=== PATIENT | male | born 1990 | race Caucasian/White ===

== ENCOUNTER 2019-11-16 16:58 | Emergency (ER) | payer SELFPAY ==
--- OUTSIDE RECORDS SUMMARY | 2019-11-16 17:00 | XMS REPORT | Continuity of Care Document ---
:1990 Author Organization [facility] t Address [address] [place] [address] Care Team Providers Name Role Phone Unavailable Unavailable Unavailable Problems This patient has no known problems. Allergies, Adverse Reactions, Alerts This patient has no known allergies or adverse reactions. Medications This patient has no known medications. Procedures This patient has no known procedures. Results Test Description Test Time Test Comments Results Result Comments Source Thyroxine Free T4 2018-12-28 08:22:53 Test Item Value Reference Range Interpretation Comme nts T4 Free (test code = T4 Free) 1.060 ng/dL 0.930-1.700 RPR [id number] 19:40:08 Test Item Value Reference Range Interpretation Comments RPR Qual (test code = RPR Qual) Non-Reactive Non-Reactive Reactive Control (test code = Reactive Reactive Control) Weak Reactive Control (test Weak Reactive code = Weak Reactive Control) Non-Reactive Control (test code Non-Reactive = Non-Reactive Control) Lot # (test code = Lot #) [id number] Expiration Dt (test code = 10.31.20 N Expiration Dt) Hemoglobin [id number] 12:10:15 Test Item Value Reference Range Interpretation Comments Hemoglobin A1c (test code 5.2 % 4.8-5.9 No n Diabetic = Hemoglobin A1c) 4.8-5.9%Di abetic <7.0% Thyroid Stimulating [id number] 09:22:05 Test Item Value Reference Range Interpretation Comments TSH (test code = TSH) 6.780 mIU/mL 0.270-4.200 H Lipid [id number] 09:17:31 Test Item Value Reference Range Interpretation Comments Cholesterol Total 112 mg/dL 0-200 RISK OF HE ART (test code = DISEASEPublishe d by Cholesterol Total) [employer] Patti lyte Optimal Borderl ine Increased RiskC HOL <200 200-239 >2 40TRIG <150 150-199 >2 00HDL Male >60 <40H DL Female >60 <5 0LDL <100 130-159 >1 60LDL Near optimal is 100-129 Triglycerides (test 124 mg/dL 9-200 code = Triglycerides) HDL (test code = HDL) 42 mg/dL 40-60 LDL (test code = LDL) 45 mg/dL 0-130 The eq uation being used in this calcula tion is LDL = (Chol - H DL) - (Trig / 5) VLDL (test code = 25 mg/dL 5-40 The equati on being used VLDL) in this calcula tion is VLDL = Trig / 5 Chol/HDL (test code = 2.7 ratio 0.0-5.0 Chol/HDL) LDL/HDL Ratio (test 1 N The equa tion being used code = LDL/HDL Ratio) in thi s calculation is LDL/HDL Ratio=L DL Calc/HDL Chol Urine Drug [id number] 01:18:36 Test Item Value Reference Range Interpretation Comments Amphetamine Screen Ur Negative Negative (test code = Amphetamine Screen Ur) Barbiturate Screen Ur Negative Negative (test code = Barbiturate Screen Ur) Benzodiazepines Ur (test Negative Negative code = Benzodiazepines Ur) Cocaine Screen Ur (test Negative Negative code = Cocaine Screen Ur) U Methadone Scr (test Negative Negative code = U Methadone Scr) Opiate Screen Ur (test Negative Negative code = Opiate Screen Ur) U PCP Scrn (test code = Negative Negative U PCP Scrn) Cannabinoid Screen Ur POSITIVE Negative A (test code = Cannabinoid Screen Ur) U TCA (test code = U Negative Negative The res ults of all TCA) drug screen kyra ts are only preliminar y. Clinical consideration a nd professional ju dgment should be appli ed to any drug of abu se test result, particularly wh en preliminary pos itive results are obt ained. Please order a separate confir matory test if desired . Alcohol [id number] 00:40:25 Test Item Value Reference Range Interpretation Comments Ethanol Level (test <0.00 g/dL 0.00-0.01 Intoxica carrie 0.080 g/dL code = Ethanol or more Level) Ethanol Inst (test <0 N code = Ethanol Inst) Comprehensive Metabolic [id number] 20:42:46 Test Item Value Reference Range Interpretation Comments Sodium Level (test code = Sodium 142.0 mmol/L 135.0-145.0 Level) Potassium Level (test code = 5.0 mmol/L 3.5-5.1 Potassium Level) Chloride Level (test code = 103 mmol/L 98-105 Chloride Level) CO2 (test code = CO2) 29 mmol/L 22-29 Anion Gap (test code = Anion 10 mmol/L 7-16 Gap) BUN (test code = BUN) 11.20 mg/dL 6.00-20.00 Creatinine Level (test code = 0.80 mg/dL 0.70-1.20 Creatinine Level) BUN/Creat Ratio (test code = 14 N BUN/Creat Ratio) Glucose Level (test code = 91 mg/dL 70-115 Glucose Level) Calcium Level (test code = 9.4 mg/dL 8.3-10.5 Calcium Level) Alk Phos (test code = Alk Phos) 72 U/L 40-129 Bilirubin Total (test code = <0.1 mg/dL 0.1-0.9 Bilirubin Total) Albumin Level (test code = 4.5 g/dL 3.5-5.2 Albumin Level) Protein Total (test code = 6.5 g/dL 6.4-8.3 Protein Total) ALT (test code = ALT) 15 U/L 1-41 AST (test code = AST) 15 U/L 1-40 Globulin (test code = Globulin) 2.0 g/dL 2.9-3.1 L A/G Ratio (test code = A/G 2.2 ratio N Ratio) Comprehensive Metabolic [id number] 20:42:46 Test Item Value Reference Range Interpretation Comments Sodium Level (test 142.0 mmol/L 135.0-145.0 code = Sodium Level) Potassium Level 5.0 mmol/L 3.5-5.1 (test code = Potassium Level) Chloride Level (test 103 mmol/L 98-105 code = Chloride Level) CO2 (test code = 29 mmol/L 22-29 CO2) Anion Gap (test code 10 mmol/L 7-16 = Anion Gap) BUN (test code = 11.20 mg/dL 6.00-20.00 BUN) Creatinine Level 0.80 mg/dL 0.70-1.20 (test code = Creatinine Level) BUN/Creat Ratio 14 N (test code = BUN/Creat Ratio) Glucose Level (test 91 mg/dL 70-115 code = Glucose Level) Calcium Level (test 9.4 mg/dL 8.3-10.5 code = Calcium Level) Alk Phos (test code 72 U/L 40-129 = Alk Phos) Bilirubin Total <0.1 mg/dL 0.1-0.9 (test code = Bilirubin Total) Albumin Level (test 4.5 g/dL 3.5-5.2 code = Albumin Level) Protein Total (test 6.5 g/dL 6.4-8.3 code = Protein Total) ALT (test code = 15 U/L 1-41 ALT) AST (test code = 15 U/L 1-40 AST) Globulin (test code 2.0 g/dL 2.9-3.1 L = Globulin) A/G Ratio (test code 2.2 ratio N = A/G Ratio) eGFR AA (test code = >60 N eGFR (e stimated eGFR AA) mL/min/1.73 m2 Glomerular Filtration Rate ) is an estimated va lue, calculated from the patient's serum creatinine usin g the MDRD equation. It is NOT the patient 's actual GFR. The eGFR provides a more clinically usef ul measure of kidn ey disease than se rum creatinine alone.This calculation belén es sex and race in to account, if the information is provided. If th e race is not provided, and t he patient is -Marichuy n, multiply by 1.2 12. If sex is not provided, and t he patient is fema le, multiply by 0.7 42. Results for pat ients <18 years of ag e have not been validated by th e MDRD study and should be interpreted wit h caution. eGFR R esult Interpretation: eGFR > or = 60 is in the Normal RangeeGF R < 60 may mean kid radha diseaseeGFR < 1 5 may mean kidney failure Rang es recommended by the National Kidney Foundation, http://nkdep.ni h.gov Comprehensive Metabolic [id number] 20:42:46 Test Item Value Reference Range Interpretation Comments Sodium Level (test 142.0 mmol/L 135.0-145.0 code = Sodium Level) Potassium Level 5.0 mmol/L 3.5-5.1 (test code = Potassium Level) Chloride Level (test 103 mmol/L 98-105 code = Chloride Level) CO2 (test code = 29 mmol/L 22-29 CO2) Anion Gap (test code 10 mmol/L 7-16 = Anion Gap) BUN (test code = 11.20 mg/dL 6.00-20.00 BUN) Creatinine Level 0.80 mg/dL 0.70-1.20 (test code = Creatinine Level) BUN/Creat Ratio 14 N (test code = BUN/Creat Ratio) Glucose Level (test 91 mg/dL 70-115 code = Glucose Level) Calcium Level (test 9.4 mg/dL 8.3-10.5 code = Calcium Level) Alk Phos (test code 72 U/L 40-129 = Alk Phos) Bilirubin Total <0.1 mg/dL 0.1-0.9 (test code = Bilirubin Total) Albumin Level (test 4.5 g/dL 3.5-5.2 code = Albumin Level) Protein Total (test 6.5 g/dL 6.4-8.3 code = Protein Total) ALT (test code = 15 U/L 1-41 ALT) AST (test code = 15 U/L 1-40 AST) Globulin (test code 2.0 g/dL 2.9-3.1 L = Globulin) A/G Ratio (test code 2.2 ratio N = A/G Ratio) eGFR AA (test code = >60 N eGFR (e stimated eGFR AA) mL/min/1.73 m2 Glomerular Filtration Rate ) is an estimated va lue, calculated from the patient's serum creatinine usin g the MDRD equation. It is NOT the patient 's actual GFR. The eGFR provides a more clinically usef ul measure of kidn ey disease than se rum creatinine alone.This calculation belén es sex and race in to account, if the information is provided. If th e race is not provided, and t he patient is -Marichuy n, multiply by 1.2 12. If sex is not provided, and t he patient is fema le, multiply by 0.7 42. Results for pat ients <18 years of ag e have not been validated by th e MDRD study and should be interpreted wit h caution. eGFR R esult Interpretation: eGFR > or = 60 is in the Normal RangeeGF R < 60 may mean kid radha diseaseeGFR < 1 5 may mean kidney failure Rang es recommended by the National Kidney Foundation, http://nkdep.ni h.gov eGFR Non-AA (test >60.00 N eGFR (john mated code = eGFR Non-AA) mL/min/1.73 m2 Glomer ular Filtration Rate ) is an estimated va lue, calculated from the patient's serum creatinine usin g the MDRD equation. It is NOT the patient 's actual GFR. The eGFR provides a more clinically usef ul measure of kidn ey disease than se rum creatinine alone.This calculation belén es sex and race in to account, if the information is provided. If th e race is not provided, and t he patient is -Marichuy n, multiply by 1.2 12. If sex is not provided, and t he patient is fema le, multiply by 0.7 42. Results for pat ients <18 years of ag e have not been validated by th e MDRD study and should be interpreted wit h caution. eGFR R esult Interpretation: eGFR > or = 60 is in the Normal RangeeGF R < 60 may mean kid radha diseaseeGFR < 1 5 may mean kidney failure Rang es recommended by the National Kidney Foundation, http://nkdep.ni h.gov Urinalysis with Culture, if [id number] 20:26:39 Test Item Value Reference Range Interpretation Comments UA Color (test code = YELLO Yellow UA Color) UA Appear (test code = CLEAR Clear UA Appear) UA pH (test code = UA 7 N pH) UA Spec Grav (test 1.014 1.001-1.035 code = UA Spec Grav) UA Glucose (test code NEG Negative = UA Glucose) UA Bili (test code = NEG Negative UA Bili) UA Ketones (test code NEG Negative = UA Ketones) UA Blood (test code = NEG Negative UA Blood) UA Protein (test code NEG Negative = UA Protein) UA Urobilinogen (test 0.2 mg/dL N code = UA Urobilinogen) UA Nitrite (test code NEG Negative = UA Nitrite) UA Leuk Est (test code NEG Negative = UA Leuk Est) UA Micro Ind? (test Not Indicated Not Indicated Result created by code = UA Micro Ind?) rule [id number]_SJM_UA_MICRO _IN D Complete Blood Count with [id number] 20:13:10 Test Item Value Reference Range Interpretation Comments WBC (test code = WBC) 9.4 x10 4.4-10.5 RBC (test code = RBC) 4.66 x10 4.10-5.70 Hgb (test code = Hgb) 15.2 g/dL 13.4-17.4 Hct (test code = Hct) 43.9 % 38.7-52.0 MCV (test code = MCV) 94.20 fL 80.00-100.00 MCHC (test code = 34.60 g/dL 32.00-37.50 MCHC) RDW CV (test code = 12.3 % 11.5-14.5 RDW CV) MCH (test code = MCH) 32.6 pg 27.0-32.5 H Platelets (test code = 283.0 x10 140.0-440.0 Platelets) MPV (test code = MPV) 10.9 fL N Slide Review (test Auto Auto Result cr eated by code = Slide Review) GL_SJM_ SLIDE_REV_AUTO nRBC (test code = 0 N nRBC) NRBC Abs (test code = 0.00 x10 N NRBC Abs) IPF (test code = IPF) 0 % N Automated [id number] 20:13:10 Test Item Value Reference Range Interpretation Comments Neutro Auto (test code = Neutro 62.8 % 36.0-70.0 Auto) Lymph Auto (test code = Lymph Auto) 22.9 % 12.0-44.0 Eureka Auto (test code = Eureka Auto) 11.0 % 0.0-11.0 Eos, Auto (test code = Eos, Auto) 2.3 % 0.0-7.0 Basophil Auto (test code = Basophil 0.6 % 0.0-2.0 Auto) Neutro Absolute (test code = Neutro 5.9 x10 1.6-7.4 Absolute) Lymph Absolute (test code = Lymph 2.15 x10 .50-4.60 Absolute) Eureka Absolute (test code = Eureka 1.03 x10 .00-1.20 Absolute) Eos Absolute (test code = Eos 0.22 x10 0.00-0.74 Absolute) Baso Absolute (test code = Baso 0.06 x10 0.00-0.21 Absolute) IG [id number] 20:13:10 Test Item Value Reference Range Interpretation Comments IG (test code = IG) 0.4 % 0.0-5.0 IG Abs (test code = IG Abs) 0 x10 N
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
[2019-11-16] MEDS ORDERED: TETANUS & DIPHTHERIA TOX,ADULT 0.5 ML VIAL ONE (17:57)
[2019-11-16 20:36] VITALS: TEMP 98.9
[2019-11-16 20:37] VITALS: BP 114/65; O2SAT 97
== END 2019-11-16 18:08 | disposition home or self-care (01) ==
LOC: ER 16:58
DX: S09.90XA Unspecified injury of head, initial encounter (principal); S50.812A Abrasion of left forearm, initial encounter; S50.811A Abrasion of right forearm, initial encounter; Y04.2XXA Assault by strike against or bumped into by another person, initial encounter; Y93.9 Activity, unspecified; Y92.9 Unspecified place or not applicable; Z23 Encounter for immunization
CPT/HCPCS: 90471; 90714; 99284; G0390

== ENCOUNTER 2020-01-19 00:54 | Emergency (ER) | payer SELFPAY ==
--- OUTSIDE RECORDS SUMMARY | 2020-01-19 00:56 | XMS REPORT | Continuity of Care Document ---
:1990 Author Organization [facility] t Address [address] [place] [address] Care Team Providers Name Role Phone Unavailable [...] = T4 Free) 1.060 ng/dL 0.930-1.700 RPR [id number] 19:40:08 Test Item Value Reference Range Interpretation Comments RPR Qual (test code = RPR Qual) Non-Reactive Non-Reactive Reactive Control (test code = Reactive Reactive Control) Weak Reactive Control (test Weak Reactive code = Weak Reactive Control) Non-Reactive Control (test code Non-Reactive = Non-Reactive Control) Lot # (test code = Lot #) [id number] Expiration Dt (test code = 10.31.20 N Expiration Dt) Hemoglobin [id number] 12:10:15 Test Item Value Reference Range Interpretation Comments Hemoglobin A1c (test code 5.2 % 4.8-5.9 No n Diabetic = Hemoglobin A1c) 4.8-5.9%Di abetic <7.0% Thyroid Stimulating [id number] 09:22:05 Test Item Value Reference Range Interpretation Comments TSH (test code = TSH) 6.780 mIU/mL 0.270-4.200 H Lipid [id number] 09:17:31 Test Item Value Reference Range Interpretation Comments Cholesterol Total 112 mg/dL 0-200 RISK OF HE ART (test code = DISEASEPublishe d by Cholesterol Total) [employer] Patti lyte Optimal Borderl ine [...] LDL/HDL Ratio=L DL Calc/HDL Chol Urine Drug [id number] 01:18:36 Test Item Value Reference Range Interpretation [...] confir matory test if desired . Alcohol [id number] 00:40:25 Test Item Value Reference Range Interpretation Comments Ethanol Level (test <0.00 g/dL 0.00-0.01 Intoxica carrie 0.080 g/dL code = Ethanol or more Level) Ethanol Inst (test <0 N code = Ethanol Inst) Comprehensive Metabolic [id number] 20:42:46 Test Item Value Reference Range Interpretation [...] A/G 2.2 ratio N Ratio) Comprehensive Metabolic [id number] 20:42:46 Test Item Value Reference Range Interpretation [...] National Kidney Foundation, http://nkdep.ni h.gov Comprehensive Metabolic [id number] 20:42:46 Test Item Value Reference Range Interpretation [...] Foundation, http://nkdep.ni h.gov Urinalysis with Culture, if [id number] 20:26:39 Test Item Value Reference Range Interpretation [...] [id number] _IN D Complete Blood Count with [id number] 20:13:10 Test Item Value Reference Range Interpretation [...] code = IPF) 0 % N Automated [id number] 20:13:10 Test Item Value Reference Range Interpretation Comments Neutro Auto (test code = Neutro 62.8 % 36.0-70.0 Auto) Lymph Auto (test code = Lymph Auto) 22.9 % 12.0-44.0 George Auto (test code = George Auto) 11.0 % 0.0-11.0 Eos, Auto (test code = Eos, Auto) 2.3 % 0.0-7.0 Basophil Auto (test code = Basophil 0.6 % 0.0-2.0 Auto) Neutro Absolute (test code = Neutro 5.9 x10 1.6-7.4 Absolute) Lymph Absolute (test code = Lymph 2.15 x10 .50-4.60 Absolute) George Absolute (test code = George 1.03 x10 .00-1.20 Absolute) Eos Absolute (test code = Eos 0.22 x10 0.00-0.74 Absolute) Baso Absolute (test code = Baso 0.06 x10 0.00-0.21 Absolute) IG [id number] 20:13:10 Test Item Value Reference Range Interpretation Comments IG (test code = IG) 0.4 % 0.0-5.0 IG Abs (test code = IG Abs) 0 x10 N
[2020-01-19 01:28] LABS: Absolute Lymphocytes (CBC) 2.1 K/uL (0.7-4.9); Basophils % 0.7 % (0-1.3); Hematocrit 40.7 % (39.6-49.0); Lymphocytes % 24.5 % (15.3-44.8); MPV 10.3 fL (7.6-11.3); RBC Red Blood Cell Count 4.31 M/uL (4.33-5.43)
[2020-01-19 01:29] LABS: Protime INR 0.99
[2020-01-19 01:51] LABS: ALT/SGPT 18 U/L (12-78); AST/SGOT 13 U/L (15-37); Albumin 3.7 g/dL (3.4-5.0); Alkaline Phosphatase 82 U/L (45-117); BUN Blood Urea Nitrogen 12 mg/dL (7-18); Bicarbonate 29 mmol/L (21-32); Bilirubin Direct 0.1 mg/dL (0-0.2); Bilirubin Total 0.4 mg/dL (0.2-1.0); Glucose Level 119 mg/dL (74-106); Potassium 4.2 mmol/L (3.5-5.1); Protein, Total 6.7 g/dL (6.4-8.2); Sodium Level 143 mmol/L (136-145)
[2020-01-19] MEDS ORDERED: NA CHLORIDE 0.9% 1,000 ML ONE (02:50)
[2020-01-19 04:20] LABS: Barbiturates NEGATIVE (NEGATIVE); Benzodiazepines NEGATIVE (NEGATIVE); Cocaine NEGATIVE (NEGATIVE); METHAMPHETAM POSITIVE (NEGATIVE); Methadone NEGATIVE (NEGATIVE); Opiates NEGATIVE (NEGATIVE); Phencyclidine NEGATIVE (NEGATIVE); THC Cannibis POSITIVE (NEGATIVE)
--- NOTE | 2020-01-19 05:00 | ER ---
Nurse's Notes [facility] Name: Darinel Jaeger III Age: 29 yrs Sex: Male : 1990 Arrival Date: 01/19/2020 Time: 00:56 Bed 7 Private MD: Diagnosis: Dyspnea, unspecified;Methamphetamine Abuse;Marijuana Use Presentation: 01/18 00:56 Chief complaint: EMS states: toned in for . en route patient is inconsistent with rv his story. when asked, patient denies chest pain and at the moment. vital signs stable and normal. Coronavirus screen: Client denies travel out of the [place] in the last 14 days. Ebola Screen: No symptoms or risks identified at this time. Initial Sepsis Screen: Does the patient meet any 2 criteria? No. Patient's initial sepsis screen is negative. Does the patient have a suspected source of infection? No. Patient's initial sepsis screen is negative. Risk Assessment: Do you want to hurt yourself or someone else? Patient reports no desire to harm self or others. Onset of symptoms is unknown. 00:56 Method Of Arrival: EMS: [facility] rv 00:56 Acuity: KAVON 3 rv Triage Assessment: 01:01 General: Appears comfortable, unkempt, Behavior is. Pain: Denies pain. EENT: No rv deficits noted. Neuro: Level of Consciousness is awake, alert, obeys commands, Oriented to person, place, time, situation. Cardiovascular: Patient's skin is warm and dry. Respiratory: Airway is patent Respiratory effort is even, unlabored, Respiratory pattern is regular, Breath sounds are clear bilaterally. Derm: Skin is intact. Historical: - Allergies: 01: No Known Allergies; rv - Home Meds: 01: None [Active]; rv - PMHx: 01: Methamphetamine abuse - snort; rv - PSHx: 01:01 None; rv - Immunization history:: Adult Immunizations unknown. - Social history:: Smoking status: Patient reports the use of cigarette tobacco products, smokes one pack cigarettes per day. Screenin:03 Abuse screen: Denies threats or abuse. Denies injuries from another. Nutritional rv screening: No deficits noted. Tuberculosis screening: No symptoms or risk factors identified. Fall Risk None identified. Assessment: :29 Reassessment: PATIENT DENIES THREAT TO SELF OR OTHERS. rv 02:08 Reassessment: HELPED PATIENT DO HYGIENE IN THE RESTROOM. PROVIDED CLEAN GOWN AND rv HYGIENE KIT. PATIENT IS REFRESHED AND SATISFIED AFTER. PROVIDED FOOD AND DRINK AT BEDSIDE. 03:00 Reassessment: Patient appears in no apparent distress at this time. Patient is alert, rr5 oriented x 3, equal unlabored respirations, skin warm/dry/pink. awaiting for results. 03:58 Reassessment: Patient appears in no apparent distress at this time. Patient is alert, rr5 oriented x 3, equal unlabored respirations, skin warm/dry/pink. urine sent for UDS. Vital Signs: 00:56 BP 107 / 69; Pulse 66; Resp 16; Temp 98; Pulse Ox 100% ; Weight 77.11 kg; Height 5 ft. rv 10 in. (177.80 cm); Pain 0/10; 02:10 BP 101 / 68; Pulse 63; Resp 17; Pulse Ox 100% on R/A; rv 03:58 BP 105 / 62; Pulse 65; Resp 19; Pulse Ox 99% ; rr5 05:15 BP 110 / 66; Pulse 66; Resp 16; Temp 98; Pulse Ox 99% on R/A; rv 00:56 Body Mass Index 24.39 (77.11 kg, 177.80 cm) rv ED Course: 00:56 Patient arrived in ED. rv 00:57 Romie Perkins MD is Attending Physician. [facility] 01:00 Triage completed. rv 01:02 Arm band placed on right wrist. Patient placed in the treatment room, on a stretcher, rv Patient notified of wait time. 01:03 Patient has correct armband on for positive identification. monitor and storage bin tender on. Pulse rv ox on. NIBP on. 01:05 Inserted saline lock: 20 gauge in left forearm, using aseptic technique. Blood rr5 collected. 01:07 Artur Kennedy RN is Primary Nurse. rv 01:35 Chest Single View XRAY In Process Unspecified. EDMS 01:58 CT Head Brain wo Cont In Process Unspecified. EDMS 03:56 Urine collected: clean catch specimen, clear. rr5 04:35 covid. rr5 05:15 No provider procedures requiring assistance completed. IV discontinued, intact, rv bleeding controlled, No redness/swelling at site. Pressure dressing applied. Administered Medications: No medications were administered Outcome: 04:59 Discharge ordered by MD. isaac 05:15 Discharged to home ambulatory. rv 05:15 Condition: good 05:15 Discharge instructions given to patient, Instructed on discharge instructions, follow up and referral plans. Demonstrated understanding of instructions, follow-up care. 05:16 Patient left the ED. rv Signatures: Dispatcher [employer] EDArtur Elkins RN RN rv Roque, Raymond, RN RN rr5 Romie Perkins MD MD 7
--- NOTE | 2020-01-19 05:00 | EDPHYS ---
Physician Documentation [facility] Name: Darinel Jaeger III Age: 29 yrs Sex: Male : 1990 Arrival Date: 01/19/2020 Time: 00:56 Bed 7 Private MD: ED Physician Romie Perkins HPI: 01/18 01:36 This 29 yrs old Male presents to ER via EMS with complaints of Difficulty mh7 with breathing. 01:37 The patient has shortness of breath during emotionally upset. Onset: The mh7 symptoms/episode began/occurred 2 week(s) ago. Duration: The symptoms are intermittent, with no pattern. The patient's shortness of breath is aggravated by coughing, is alleviated by nothing. Associated signs and symptoms: Pertinent positives: non-productive cough, Pertinent negatives: chest pain, productive cough, diaphoresis, dizziness, fever, hemoptysis, loss of consciousness, nausea, numbness in extremities, visual changes, vomiting. Severity of symptoms: At their worst the symptoms were moderate 5 day(s) ago, in the emergency department the symptoms have improved moderately. Patient reports cough with difficulty with breathing intermittently for two weeks. Also states that he has been hearing voices that don't tell him anything in particular. Denies suicidal or homicidal ideation or visual hallucinations. Denies any fever, chest pain, abdominal pain, nausea, vomiting, recent travel or sick contacts.. Historical: - Allergies: 01:01 No Known Allergies; rv - Home Meds: 01:01 None [Active]; rv - PMHx: 01:01 Methamphetamine abuse - snort; rv - PSHx: 01:01 None; rv - Immunization history:: Adult Immunizations unknown. - Social history:: Smoking status: Patient reports the use of cigarette tobacco products, smokes one pack cigarettes per day. ROS: 01:37 Constitutional: Negative for fever, chills, and weight loss, Eyes: Negative for injury, mh7 pain, redness, and discharge, ENT: Negative for injury, pain, and discharge, Neck: Negative for injury, pain, and swelling, Cardiovascular: Negative for chest pain, palpitations, and edema, Abdomen/GI: Negative for abdominal pain, nausea, vomiting, diarrhea, and constipation, Back: Negative for injury and pain, : Negative for injury, bleeding, discharge, and swelling, MS/Extremity: Negative for injury and deformity, Skin: Negative for injury, rash, and discoloration, Neuro: Negative for headache, weakness, numbness, tingling, and seizure, Allergy/Immunology: Negative for hives, rash, and allergies, Endocrine: Negative for neck swelling, polydipsia, polyuria, polyphagia, and marked weight changes, Hematologic/Lymphatic: Negative for swollen nodes, abnormal bleeding, and unusual bruising. Exam: 01:37 Constitutional: This is a well developed, well nourished patient who is awake, alert, mh7 and in no acute distress. Head/Face: Normocephalic, atraumatic. Eyes: Pupils equal round and reactive to light, extra-ocular motions intact. Lids and lashes normal. Conjunctiva and sclera are non-icteric and not injected. Cornea within normal limits. Periorbital areas with no swelling, redness, or edema. ENT: Nares patent. No nasal discharge, no septal abnormalities noted. Tympanic membranes are normal and external auditory canals are clear. Oropharynx with no redness, swelling, or masses, exudates, or evidence of obstruction, uvula midline. Mucous membranes moist. Neck: Trachea midline, no thyromegaly or masses palpated, and no cervical lymphadenopathy. Supple, full range of motion without nuchal rigidity, or vertebral point tenderness. No Meningismus. Chest/axilla: Normal chest wall appearance and motion. Nontender with no deformity. No lesions are appreciated. Cardiovascular: Regular rate and rhythm with a normal S1 and S2. No gallops, murmurs, or rubs. Normal PMI, no JVD. No pulse deficits. Respiratory: Lungs have equal breath sounds bilaterally, clear to auscultation and percussion. No rales, rhonchi or wheezes noted. No increased work of breathing, no retractions or nasal flaring. Abdomen/GI: Soft, non-tender, with normal bowel sounds. No distension or tympany. No guarding or rebound. No evidence of tenderness throughout. Back: No spinal tenderness. No costovertebral tenderness. Full range of motion. Skin: Warm, dry with normal turgor. Normal color with no rashes, no lesions, and no evidence of cellulitis. MS/ Extremity: Pulses equal, no cyanosis. Neurovascular intact. Full, normal range of motion. Neuro: Awake and alert, GCS 15, oriented to person, place, time, and situation. Cranial nerves II-XII grossly intact. Motor strength 5/5 in all extremities. Sensory grossly intact. Cerebellar exam normal. Normal gait. 01:37 Psych: Behavior/mood is cooperative, Affect is calm, Oriented to person, place, time, Patient has no thoughts/intents to harm self or others. Judgement / Insight is normal. Memory is normal. 04:56 Psych: Delusions/hallucinations are not present. mh7 Vital Signs: 00:56 BP 107 / 69; Pulse 66; Resp 16; Temp 98; Pulse Ox 100% ; Weight 77.11 kg; Height 5 ft. rv 10 in. (177.80 cm); Pain 0/10; 02:10 BP 101 / 68; Pulse 63; Resp 17; Pulse Ox 100% on R/A; rv 03:58 BP 105 / 62; Pulse 65; Resp 19; Pulse Ox 99% ; rr5 05:15 BP 110 / 66; Pulse 66; Resp 16; Temp 98; Pulse Ox 99% on R/A; rv 00:56 Body Mass Index 24.39 (77.11 kg, 177.80 cm) rv MDM: 04:56 Differential diagnosis: Anemia Anxiety Reaction asthma, Bronchitis Myocardial mh7 Infarction pneumonia, Pneumothorax Psychogenic pulmonary edema, reactive airway disease, Substance Abuse. Data reviewed: vital signs, nurses notes, EMS record, lab test result(s), cardiac enzymes, CBC, drug level(s), electrolytes, urinalysis, EKG, radiologic studies, CT scan, plain films. Data interpreted: Pulse oximetry: on room air is 99 %. Interpretation: normal. Counseling: I had a detailed discussion with the patient and/or guardian regarding: the historical points, exam findings, and any diagnostic results supporting the discharge/admit diagnosis, lab results, radiology results, the need for outpatient follow up, to return to the emergency department if symptoms worsen or persist or if there are any questions or concerns that arise at home. Response to treatment: the patient's symptoms have resolved after treatment, the patient's blood pressure is in an acceptable range, mental status has returned to baseline, the patient no longer shows bradycardia, the patient is not short of breath, the patient is not tachycardic, the patient's pain is gone, the patient's temperature has normalized. 04:59 Patient medically screened. [facility] 01/18 01:08 Order name: Acetaminophen; Complete Time: 02:28 01/18 01:08 Order name: Basic Metabolic Panel; Complete Time: 02:28 01/18 01:08 Order name: CBC with Diff; Complete Time: 02:28 01/18 01:08 Order name: ETOH Level; Complete Time: 02:28 01/18 01:08 Order name: Hepatic Function; Complete Time: 02:28 01/18 01:08 Order name: PT-INR; Complete Time: 02:28 01/18 01:08 Order name: Ptt, Activated; Complete Time: 02:28 01/18 01:08 Order name: Salicylate; Complete Time: 02:28 01/18 01:08 Order name: Urine Drug Screen; Complete Time: 04:26 01/18 01:08 Order name: CT Head Brain wo Cont 01/18 04:29 Order name: Troponin (emerg Dept Use Only) [facility] 01/18 04:30 Order name: Troponin (Emerg Dept Use Only); Complete Time: 04:55 [facility] 01/18 04:31 Order name: COVID-19 [facility] 01/18 04:31 Order name: CORONAVIRUS [facility] 01/18 01:08 Order name: EKG; Complete Time: 01:09 01/18 01:08 Order name: EKG - Nurse/Tech; Complete Time: 01:43 01/18 01:08 Order name: IV Saline Lock; Complete Time: 01:43 01/18 01:08 Order name: Labs collected and sent; Complete Time: 01:43 01/18 01:08 Order name: Urine Dipstick-Ancillary (obtain specimen); Complete Time: 03:56 01/18 01:12 Order name: Chest Single View XRAY [facility] Administered Medications: No medications were administered Disposition: 01/19/20 04:59 Discharged to Home. Impression: Dyspnea, unspecified, Methamphetamine Abuse, Marijuana Use. - Condition is Stable. - Discharge Instructions: Cannabis Use Disorder, Shortness of Breath, [id number], Stimulant Use Disorder-Methamphetamines. - Medication Reconciliation Form, Thank You Letter, Antibiotic Education, Prescription Opioid Use form. - Follow up: Private Physician; When: 1 - 2 days; Reason: Worsening of condition, Recheck today's complaints, Continuance of care, Re-evaluation by your physician. - Problem is an ongoing problem. - Symptoms have improved. Signatures: Dispatcher [employer] Artur Ralph RN RN Romie Covington MD MD mh7 Corrections: (The following items were deleted from the chart) 05:16 04:59 01/19/2020 04:59 Discharged to Home. Impression: Dyspnea, unspecified; rv Methamphetamine Abuse; Marijuana Use. Condition is Stable. Forms are Medication Reconciliation Form, Thank You Letter, Antibiotic Education, Prescription Opioid Use. Follow up: Private Physician; When: 1 - 2 days; Reason: Worsening of condition, Recheck today's complaints, Continuance of care, Re-evaluation by your physician. Problem is an ongoing problem. Symptoms have improved. mh7
--- NOTE | 2020-01-19 08:19 | RAD REPORT ---
EXAM DESCRIPTION: Dylan Single View01/19/2020 1:35 am CLINICAL HISTORY: Cough COMPARISON: none FINDINGS: The lungs appear clear of acute infiltrate. The heart is normal size IMPRESSION: No acute abnormalities displayed
[2020-01-19 14:16] VITALS: TEMP 98
[2020-01-19 14:20] VITALS: O2SAT 99
[2020-01-19 14:22] VITALS: BP 110/66
--- NOTE | 2020-01-21 11:09 | RAD REPORT ---
EXAM DESCRIPTION: CT - Head Brain Wo Cont - 01/19/2020 7:14 am CLINICAL HISTORY: HEADACHE TECHNIQUE: Contiguous axial CT images obtained through the brain without IV contrast. Coronal and sa gittal reformatted images were provided. This exam was performed according to our departmental dose-optimization program, which includes autom ated exposure control, adjustment of the mA and/or kV according to patient size and/or use of iterati ve reconstruction technique. COMPARISON: 10/22/2018 FINDINGS: Brain: No significant white matter changes. No focal mass effect. Rutherford-white matter differ entiation is within normal limits. No hemorrhage. Ventricles: No ventriculomegaly or midline shift. Extra-axial spaces: No extra-axial collection or hemorrhage. Paranasal sinuses and mastoid air cells: Mild right sphenoid sinus mucosal thickening. Vessels: Unremarkable Bones: Unremarkable Soft tissues: Unremarkable IMPRESSION: No acute intracranial or extra-axial abnormality. Electronically signed by: Aminata Valenzuela MD 01/19/2020 2:05 AM TURF KEEPER Due to temporary technical issues with the PACS/Fluency reporting system, reports are being signed by the in house radiologist without review as a courtesy to ensure prompt reporting. The interpreting r adiologist is fully responsible for the content of the report.
== END 2020-01-19 05:16 | disposition home or self-care (01) ==
LOC: EDBD → ER 00:54
DX: F15.10 Other stimulant abuse, uncomplicated (principal); F12.10 Cannabis abuse, uncomplicated; F17.210 Nicotine dependence, cigarettes, uncomplicated
CPT/HCPCS: 36415; 70450; 71045; 80048; 80076; 80307; 80320; 80329; 84484; 85025; 85610; 85730; 93005; 99284; J7030; U0002

== ENCOUNTER 2020-01-19 07:36 | Emergency (ER) | payer SELFPAY ==
--- OUTSIDE RECORDS SUMMARY | 2020-01-19 07:38 | XMS REPORT | Continuity of Care Document ---
:1990 Author Organization [facility] t Address [address] [place] [address] Care Team Providers Name Role Phone Unavailable [...] = T4 Free) 1.060 ng/dL 0.930-1.700 RPR [id number] 19:40:08 Test Item Value Reference Range Interpretation Comments RPR Qual (test code = RPR Qual) Non-Reactive Non-Reactive Reactive Control (test code = Reactive Reactive Control) Weak Reactive Control (test Weak Reactive code = Weak Reactive Control) Non-Reactive Control (test code Non-Reactive = Non-Reactive Control) Lot # (test code = Lot #) [id number] N Expiration Dt (test code = 10.31.20 N Expiration Dt) Hemoglobin [id number] 12:10:15 Test Item Value Reference Range Interpretation Comments Hemoglobin A1c (test code 5.2 % 4.8-5.9 No n Diabetic = Hemoglobin A1c) 4.8-5.9%Di abetic <7.0% Thyroid Stimulating [id number] 09:22:05 Test Item Value Reference Range Interpretation Comments TSH (test code = TSH) 6.780 mIU/mL 0.270-4.200 H Lipid [id number] 09:17:31 Test Item Value Reference Range Interpretation Comments Cholesterol Total 112 mg/dL 0-200 RISK OF HE ART (test code = DISEASEPublishe d by Cholesterol Total) [place] [employer] Patti lyte Optimal Borderl ine [...] LDL/HDL Ratio=L DL Calc/HDL Chol Urine Drug [id number] 01:18:36 Test Item Value Reference Range Interpretation [...] confir matory test if desired . Alcohol [id number] 00:40:25 Test Item Value Reference Range Interpretation Comments Ethanol Level (test <0.00 g/dL 0.00-0.01 Intoxica carrie 0.080 g/dL code = Ethanol or more Level) Ethanol Inst (test <0 N code = Ethanol Inst) Comprehensive Metabolic [id number] 20:42:46 Test Item Value Reference Range Interpretation [...] A/G 2.2 ratio N Ratio) Comprehensive Metabolic [id number] 20:42:46 Test Item Value Reference Range Interpretation [...] National Kidney Foundation, http://nkdep.ni h.gov Comprehensive Metabolic [id number] 20:42:46 Test Item Value Reference Range Interpretation [...] account, if the information is provided. If e race is not provided, and t he patient is -Mar[place] n, multiply by 1.2 12. If sex is not provided, and t he patient is fema le, multiply by 0.7 42. Results for pat ients <18 years of ag e have not been validated by e MDRD study and should be interpreted wit h caution. eGFR R esult Interpretation: eGFR > or = 60 is in the Normal RangeeGF R < 60 may mean kid radha diseaseeGFR < 1 5 may mean kidney failure Rang es recommended by the National Kidney Foundation, http://nkdep.ni h.gov Urinalysis with Culture, if [id number] 20:26:39 Test Item Value Reference Range Interpretation [...] GL_SJM_UA_MICRO _IN D Complete Blood Count with [id number] 20:13:10 Test Item Value Reference Range Interpretation [...] code = IPF) 0 % N Automated [id number] 20:13:10 Test Item Value Reference Range Interpretation Comments Neutro Auto (test code = Neutro 62.8 % 36.0-70.0 Auto) Lymph Auto (test code = Lymph Auto) 22.9 % 12.0-44.0 [place] Auto (test code = [place] Auto) 11.0 % 0.0-11.0 Eos, Auto (test code = Eos, Auto) 2.3 % 0.0-7.0 Basophil Auto (test code = Basophil 0.6 % 0.0-2.0 Auto) Neutro Absolute (test code = Neutro 5.9 x10 1.6-7.4 Absolute) Lymph Absolute (test code = Lymph 2.15 x10 .50-4.60 Absolute) [place] Absolute (test code = [place] 1.03 x10 .00-1.20 Absolute) Eos Absolute (test code = Eos 0.22 x10 0.00-0.74 Absolute) Baso Absolute (test code = Baso 0.06 x10 0.00-0.21 Absolute) IG [id number] 20:13:10 Test Item Value Reference Range Interpretation Comments IG (test code = IG) 0.4 % 0.0-5.0 IG Abs (test code = IG Abs) 0 x10 N
[2020-01-19] MEDS ORDERED: NA CHLORIDE 0.9% 1,000 ML ONE (08:06)
--- NOTE | 2020-01-19 08:22 | EDPHYS ---
Physician Documentation [facility] Name: Darinel Jaeger III Age: 29 yrs Sex: Male : 1990 Arrival Date: 01/19/2020 Time: 07:37 Bed 7 Private MD: ED Physician Alvarado Galindo HPI: 01/18 08:11 This 29 yrs old Male presents to ER via Ambulatory with complaints of kdr Suicidal Ideation. 08:11 The patient presents to the emergency department with paranoia, suicide ideation, but kdr the patient has no formulated plan. Onset: The symptoms/episode began/occurred The patient states that he has been hearing voices for two years and that it has become worse recently. He was here earlier today fo shortness of breath and had a tox workup that was positive for THC /Meth only. the patient has now returned stating that he wants to hurt himself if the voices don't stop talking to him. He has tried cutting himself once in the past but o/w has no significant history of harm to himself or others. Past psychiatric history: Psychiatric medications include: none, the patient has had a prior suicide gesture, where the patient cut wrists, the patient does not have a previous inpatient psychiatric history. Associated signs and symptoms: The patient has no apparent associated signs or symptoms. Severity of symptoms: At their worst the symptoms were mild in the emergency department the symptoms are unchanged. The patient has experienced similar episodes in the past, chronically. The patient has been recently seen at the [facility] Emergency Department, just prior to arrival, today. Historical: - Allergies: 07:46 No Known Drug Allergies; sv - PMHx: 07:46 Methamphetamine abuse - snort; sv - PSHx: 07:46 None; sv - Immunization history:: Adult Immunizations up to date. - Social history:: Smoking status: Patient uses street drugs, Methamphetamine (Meth) reports smoking meth 3 days ago, Patient/guardian denies using alcohol. ROS: 08:11 Constitutional: Negative for fever, chills, and weight loss, Eyes: Negative for injury, kdr pain, redness, and discharge, ENT: Negative for injury, pain, and discharge, Neck: Negative for injury, pain, and swelling, Cardiovascular: Negative for chest pain, palpitations, and edema, Respiratory: Negative for shortness of breath, cough, wheezing, and pleuritic chest pain, Abdomen/GI: Negative for abdominal pain, nausea, vomiting, diarrhea, and constipation, Back: Negative for injury and pain, : Negative for injury, bleeding, discharge, and swelling, MS/Extremity: Negative for injury and deformity, Skin: Negative for injury, rash, and discoloration, Neuro: Negative for headache, weakness, numbness, tingling, and seizure activity. Allergy/Immunology: Negative for hives, rash, and allergies, Endocrine: Negative for neck swelling, polydipsia, polyuria, polyphagia, and marked weight changes, Hematologic/Lymphatic: Negative for swollen nodes, abnormal bleeding, and unusual bruising. 08:11 Psych: Positive for auditory hallucinations, visual hallucinations, suicidal ideation. Exam: 08:11 Constitutional: This is a well developed, well nourished patient who is awake, alert, kdr and in no acute distress. Head/Face: Normocephalic, atraumatic. Eyes: Pupils equal round and reactive to light, extra-ocular motions intact. Lids and lashes normal. Conjunctiva and sclera are non-icteric and not injected. Cornea within normal limits. Periorbital areas with no swelling, redness, or edema. Chest/axilla: Normal chest wall appearance and motion. Nontender with no deformity. No lesions are appreciated. Abdomen/GI: Soft, non-tender, with normal bowel sounds. No distension or tympany. No guarding or rebound. No evidence of tenderness throughout. Skin: Warm, dry with normal turgor. Normal color with no rashes, no lesions, and no evidence of cellulitis. Neuro: Awake and alert, GCS 15, oriented to person, place, time, and situation. Cranial nerves II-XII grossly intact. Motor strength 5/5 in all extremities. Sensory grossly intact. Cerebellar exam normal. Normal gait. 08:11 Psych: Behavior/mood is cooperative, inappropriate for age, Affect is flat, Oriented to person, place, Patient having thoughts of suicide. Denies suicidal plan. Judgement / Insight is impaired. Delusions/hallucinations are present and described as voice telling him that they are going to "put a abdifatah in his head," "ear," "eye," "mouth.. Vital Signs: 07:44 Temp 98.2; sv 07:49 BP 114 / 80; Pulse 69; Resp 18; Temp 98.1; Pulse Ox 100% on R/A; Weight 74.84 kg; ph Height 5 ft. 10 in. (177.80 cm); 01/19 06:48 BP 110 / 67; Pulse 54; Resp 18; Temp 98.9(O); Pulse Ox 100% on R/A; oe 17:15 BP 126 / 63; Pulse 61; Resp 16 S; Temp 98.0(TE); Pulse Ox 100% on R/A; Pain 0/10; aa5 01/20 06:43 BP 123 / 83; Pulse 85; Resp 18; Temp 99.5(TE); Pulse Ox 100% on R/A; oe 01/18 07:49 Body Mass Index 23.67 (74.84 kg, 177.80 cm) ph MDM: 01/18 08:11 Data reviewed: vital signs, nurses notes, lab test result(s). Counseling: I had a kdr detailed discussion with the patient and/or guardian regarding: the historical points, exam findings, and any diagnostic results supporting the discharge/admit diagnosis, lab results, the need to transfer to another facility. 08:22 Patient medically screened. kdr 18:58 ED course: The patient has remained stable in the ED and has not required any kdr intervention. He has been cooperative and pleasant. The patient was handed off to Dr. Perkins for further evaluation and final disposition. 01/19 02:56 ED course: Resting comfortably, NAD, VSS, no focal neurological deficits. Calm and mh7 cooperative.. 17:03 ED course: Pt pleasant, no problems, medically cleared, awaiting psychiatric transfer. .rn 01/20 06:01 ED course: Resting comfortably, NAD, VSS. No recent or current behavioral issues.. mh7 09:40 ED course: xochitl retana at [facility]. sampson 01/18 07:45 Order name: UDS; Complete Time: 07:01 kdr 01/18 07:45 Order name: ETOH Level; Complete Time: 07: kdr 01/18 07:45 Order name: Salicylate; Complete Time: 07:01 kdr 01/18 07:45 Order name: Acetaminophen; Complete Time: 07: kdr 01/18 15:34 Order name: Urine Dipstick--Ancillary (enter results); Complete Time: 07:01 eb 01/18 16:39 Order name: SARS-COV-2 RT PCR; Complete Time: 07:01 EDMS 01/18 07:51 Order name: Diet Regular; Complete Time: 07:52 ph 01/18 11:37 Order name: Diet Regular; Complete Time: 11:38 ph 01/18 16:48 Order name: Diet Regular; Complete Time: 16:49 ph 01/19 06:52 Order name: Diet Regular; Complete Time: 06:53 rv 01/19 11:21 Order name: Diet Finger Food; Complete Time: 11:22 sv 01/19 16:16 Order name: Diet Finger Food; Complete Time: 16:16 dh3 01/20 07:09 Order name: Diet Finger Food; Complete Time: 07:10 wh 01/20 10:11 Order name: Diet Finger Food; Complete Time: 10:12 mh5 Administered Medications: 01/18 08:42 Drug: NS 0.9% 1000 ml Route: IV; Rate: 1 bolus; Site: right antecubital; ph 10:00 Follow up: Response: No adverse reaction; IV Status: Completed infusion; IV Intake: ph 1000ml 08:42 Drug: Nicoderm CQ 21 mg/24 hr 1 patches Route: Transdermal; Site: affected area; ph 08:47 Follow up: Response: No adverse reaction ph 01/19 08:19 Drug: Ativan 1 mg Route: IM; Site: left deltoid; aa5 08:45 Follow up: Response: No adverse reaction; Marked relief of symptoms; Anxiety decreased aa5 17:24 Drug: Nicotine 21 mg/24 hr 1 patches {Note: to left arm.} Route: Transdermal; Site: aa5 anterior chest wall; 01/20 10:59 CANCELLED (Physician Discretion): Geodon 20 mg IM once aa5 10:59 Not Given (Physician Discretion): Ativan 0.5 mg IVP once aa5 10:59 Drug: Ativan 1 mg Route: PO; aa5 11:15 Follow up: Response: No adverse reaction aa5 Disposition: 01/19/20 08:22 Transfer ordered to Psych Facility. Diagnosis are Paranoid personality disorder, Schizophrenia, unspecified. - Reason for transfer: Higher level of care. - Accepting physician is Psych MD. - Condition is Fair. - Problem is an ongoing problem. - Symptoms are unchanged. Signatures: Dispatcher [employer] EDDE Norah Howe, RN Alvarado Osuna MD MD cha Rittger, Kevin, MD MD kdr Nieto, Roman, MD MD rn Calderon, Audri, RN RN aa5 Jenny Garcia RN RN Romie Zelaya MD MD 7 Corrections: (The following items were deleted from the chart) 01/18 15:23 13:42 CORONAVIRUS+MR.LAB.BRZ ordered. EDDE EDMS 01/20 10:59 10:51 Geodon 20 mg IM once ordered. sampson hopper 11:20 01/18 08:22 01/19/2020 08:22 Transfer ordered to Psych Facility. Diagnosis is Paranoid aa5 personality disorder; Schizophrenia, unspecified. Reason for transfer: Higher level of care. Accepting physician is Psych MD. Condition is Fair. Problem is an ongoing problem. Symptoms are unchanged. kdr
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
[2020-01-19] MEDS ORDERED: NICOTINE 21 MG/PAT TD ONE (08:36)
[2020-01-19 15:43] LABS: Urine Blood NEGATIVE (NEG); Urine Glucose NEGATIVE (NEG); Urine Protein NEGATIVE (NEG); Urine Specific Gravity 1.025 (1.005-1.030)
[2020-01-19 15:55] LABS: Barbiturates NEGATIVE (NEGATIVE); Benzodiazepines NEGATIVE (NEGATIVE); Cocaine NEGATIVE (NEGATIVE); METHAMPHETAM NEGATIVE (NEGATIVE); Methadone NEGATIVE (NEGATIVE); Opiates NEGATIVE (NEGATIVE); Phencyclidine NEGATIVE (NEGATIVE); THC Cannibis NEGATIVE (NEGATIVE)
[2020-01-20] MEDS ORDERED: LORazepam 2 MG/ML VIAL ONE (08:27)
[2020-01-20] MEDS ORDERED: NICOTINE 21 MG/PAT TD ONE (17:34)
[2020-01-21] MEDS ORDERED: LORAZEPAM 1 MG TABLET ONE (11:08)
[2020-01-21 14:09] VITALS: O2SAT 100
[2020-01-21 14:14] VITALS: BP 123/83; TEMP 99.5
== END 2020-01-21 11:20 ==
LOC: ER 07:36
DX: F60.0 Paranoid personality disorder (principal); F20.9 Schizophrenia, unspecified; Z20.828 Contact with and (suspected) exposure to other viral communicable diseases
CPT/HCPCS: 36415; 80307; 80320; 80329; 81003; 96360; 96372; 99285; J7030; U0003

== ENCOUNTER 2020-02-19 01:40 | Emergency (ER) | payer SELFPAY ==
--- OUTSIDE RECORDS SUMMARY | 2020-02-19 01:41 | XMS REPORT | Continuity of Care Document ---
:1990 Author Organization [facility] t Address [address] [place] [address] Care Team Providers Name Role Phone Unavailable [...] = T4 Free) 1.060 ng/dL 0.930-1.700 RPR [id number] 19:40:08 Test Item Value Reference Range Interpretation Comments RPR Qual (test code = RPR Qual) Non-Reactive Non-Reactive Reactive Control (test code = Reactive Reactive Control) Weak Reactive Control (test Weak Reactive code = Weak Reactive Control) Non-Reactive Control (test code Non-Reactive = Non-Reactive Control) Lot # (test code = Lot #) [id number] Expiration Dt (test code = 10.31.20 N Expiration Dt) Hemoglobin [id number] 12:10:15 Test Item Value Reference Range Interpretation Comments Hemoglobin A1c (test code 5.2 % 4.8-5.9 No n Diabetic = Hemoglobin A1c) 4.8-5.9%Di abetic <7.0% Thyroid Stimulating [id number] 09:22:05 Test Item Value Reference Range Interpretation Comments TSH (test code = TSH) 6.780 mIU/mL 0.270-4.200 H Lipid [id number] 09:17:31 Test Item Value Reference Range Interpretation Comments Cholesterol Total 112 mg/dL 0-200 RISK OF HE ART (test code = DISEASEPublishe d by Cholesterol Total) [place] [employer] Patti lyte Optimal Borderl ine [...] LDL/HDL Ratio=L DL Calc/HDL Chol Urine Drug [id number] 01:18:36 Test Item Value Reference Range Interpretation [...] confir matory test if desired . Alcohol [id number] 00:40:25 Test Item Value Reference Range Interpretation Comments Ethanol Level (test <0.00 g/dL 0.00-0.01 Intoxica carrie 0.080 g/dL code = Ethanol or more Level) Ethanol Inst (test <0 N code = Ethanol Inst) Comprehensive Metabolic [id number] 20:42:46 Test Item Value Reference Range Interpretation [...] A/G 2.2 ratio N Ratio) Comprehensive Metabolic [id number] 20:42:46 Test Item Value Reference Range Interpretation [...] disease than se rum creatinine alone.This calculation bleén es sex and race in to account, [...] National Kidney Foundation, http://nkdep.ni h.gov Comprehensive Metabolic [id number] 20:42:46 Test Item Value Reference Range Interpretation [...] RangeeGF R < 60 may mean kid rdaha diseaseeGFR < 1 5 may mean kidney failure Rang es recommended by the National Kidney Foundation, http://nkdep.ni h.gov Urinalysis with Culture, if [id number] 20:26:39 Test Item Value Reference Range Interpretation [...] [id number] _IN D Complete Blood Count with [id number] 20:13:10 Test Item Value Reference Range Interpretation [...] code = IPF) 0 % N Automated [id number] 20:13:10 Test Item Value Reference Range Interpretation Comments Neutro Auto (test code = Neutro 62.8 % 36.0-70.0 Auto) Lymph Auto (test code = Lymph Auto) 22.9 % 12.0-44.0 [place] Auto (test code = [place] Auto) 11.0 % 0.0-11.0 Eos, Auto (test code = Eos, Auto) 2.3 % 0.0-7.0 Basophil Auto (test code = Basophil 0.6 % 0.0-2.0 Auto) Neutro Absolute (test code = Neutro 5.9 x10 1.6-7.4 Absolute) Lymph Absolute (test code = Lymph 2.15 x10 .50-4.60 Absolute) [place] Absolute (test code = [place] 1.03 x10 .00-1.20 Absolute) Eos Absolute (test code = Eos 0.22 x10 0.00-0.74 Absolute) Baso Absolute (test code = Baso 0.06 x10 0.00-0.21 Absolute) IG [id number] 20:13:10 Test Item Value Reference Range Interpretation Comments IG (test code = IG) 0.4 % 0.0-5.0 IG Abs (test code = IG Abs) 0 x10 N
[2020-02-19 02:43] LABS: Absolute Lymphocytes (CBC) 1.2 K/uL (0.7-4.9); Basophils % 0.4 % (0-1.3); Hematocrit 44.3 % (39.6-49.0); Lymphocytes % 12.2 % (15.3-44.8); MPV 9.9 fL (7.6-11.3); RBC Red Blood Cell Count 4.84 M/uL (4.33-5.43)
[2020-02-19 02:45] LABS: Protime INR 1.06
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
--- NOTE | 2020-02-19 03:13 | EDPHYS ---
Physician Documentation [facility] Name: Darniel Jaeger III Age: 29 yrs Sex: Male : 1990 Arrival Date: 02/19/2020 Time: 01:45 Bed 7 Private MD: ED Physician Chong Magdaleno HPI: 02/18 03:05 This 29 yrs old Male presents to ER via EMS with complaints of Suicidal ma2 Ideation. 03:05 The patient presents to the emergency department with depression. Onset: The ma2 symptoms/episode began/occurred gradually, 1 day(s) ago. Associated signs and symptoms: Pertinent positives; suicide ideation, Pertinent negatives: chest pain, depression, hallucinations, shortness of breath. Severity of symptoms: At their worst the symptoms were severe in the emergency department the symptoms are unchanged. was discharged today from [facility] for si, he is here with si again he states he has a plan to jump of a building.. he want to be transferred back to [facility] . Historical: - Allergies: 03:35 No Known Allergies; rr5 - Home Meds: 03:35 None [Active]; rr5 - PMHx: 03:35 Methamphetamine abuse - snort; Depression; Anxiety; Schizophrenia; Bipolar disorder; rr5 - PSHx: 03:35 None; rr5 - Immunization history:: Adult Immunizations unknown. - Social history:: Patient/guardian denies using alcohol, street drugs, IV drugs, The patient lives with family, Smoking status: unknown. ROS: 03:05 Constitutional: Negative for fever, chills, and weight loss. ma2 03:05 All other systems are negative. Exam: 03:05 Constitutional: This is a well developed, well nourished patient who is awake, alert, ma2 and in no acute distress. Chest/axilla: Normal chest wall appearance and motion. Nontender with no deformity. No lesions are appreciated. Cardiovascular: Regular rate and rhythm with a normal S1 and S2. No gallops, murmurs, or rubs. Normal PMI, no JVD. No pulse deficits. Respiratory: Lungs have equal breath sounds bilaterally, clear to auscultation and percussion. No rales, rhonchi or wheezes noted. No increased work of breathing, no retractions or nasal flaring. Abdomen/GI: Soft, non-tender, with normal bowel sounds. No distension or tympany. No guarding or rebound. No evidence of tenderness throughout. Skin: Warm, dry with normal turgor. Normal color with no rashes, no lesions, and no evidence of cellulitis. MS/ Extremity: Pulses equal, no cyanosis. Neurovascular intact. Full, normal range of motion. Neuro: Awake and alert, GCS 15, oriented to person, place, time, and situation. Cranial nerves II-XII grossly intact. Motor strength 5/5 in all extremities. Sensory grossly intact. Cerebellar exam normal. Normal gait. 03:05 Psych: Behavior/mood is suicidal, depressed, Affect is calm. Vital Signs: 02:00 BP 125 / 80; Pulse 75; Resp 16; Temp 97.5; Pulse Ox 99% ; rr5 05:30 BP 121 / 75; Pulse 70; Resp 19; Pulse Ox 98% ; rr5 08:00 BP 119 / 69; Pulse 75; Resp 16; Pulse Ox 98% ; bp 11:55 BP 114 / 66; Pulse 72; Resp 16; Temp 97.7(O); Pulse Ox 99% on R/A; mh5 02/19 01:03 BP 116 / 79; Pulse 67; Resp 16; Temp 98.2; Pulse Ox 100% ; ar5 MDM: 02/18 01:50 Patient medically screened. ny2 03:05 Differential diagnosis: drug withdrawal. acute psychotic break, depression, psychosis ma2 secondary to non-compliance. 03:12 Data reviewed: vital signs, nurses notes. Counseling: I had a detailed discussion with ma the patient and/or guardian regarding: the historical points, exam findings, and any diagnostic results supporting the discharge/admit diagnosis, the presence of at least one elevated blood pressure reading (>120/80) during this emergency department visit, the need to transfer to another facility. Response to treatment: There is no appreciated change of the patient's symptoms at this time. 07:03 ED course: patient is medically cleared pending psych evaluation and psych transfer . ny2 16:22 ED course: The patient has been resting comfortably in the ED and has not recently kdr required any intervention. 02/19 12:56 ED course: The patient has continued to rest comfortably in the ED and has not required kdr any further intervention or control. He denies being suicidal at this time and does not intend to act on any of his previous statements regarding jumping off of a building. 02/18 02:03 Order name: Acetaminophen; Complete Time: 07:02 ny2 02/18 02:03 Order name: Basic Metabolic Panel; Complete Time: 07:02 02/18 02:03 Order name: CBC with Diff; Complete Time: 03:12 02/18 02:03 Order name: ETOH Level; Complete Time: 07:02 ny02/18 02:03 Order name: Hepatic Function; Complete Time: 07:02 ny02/18 02:03 Order name: PT-INR; Complete Time: 03:12 02/18 02:03 Order name: Ptt, Activated; Complete Time: 03:12 02/18 02:03 Order name: Salicylate; Complete Time: 07:02 ny02/18 02:03 Order name: Urine Drug Screen; Complete Time: 07:02 ny02/18 08:26 Order name: Urine Dipstick--Ancillary (enter results); Complete Time: 19:25 bd 02/18 12:09 Order name: SARS-COV-2 RT PCR; Complete Time: 19:25 EDMS 02/18 02:03 Order name: EKG; Complete Time: 02:08 ny02/18 02:03 Order name: EKG - Nurse/Tech; Complete Time: 03:22 02/18 02:03 Order name: IV Saline Lock; Complete Time: 03:22 02/18 02:03 Order name: Labs collected and sent; Complete Time: 03:22 ny02/18 02:03 Order name: Urine Dipstick-Ancillary (obtain specimen); Complete Time: 04:07 ny02/18 07:39 Order name: Diet Finger Food; Complete Time: 07:40 bp 02/18 10:15 Order name: Diet Finger Food; Complete Time: 10:15 mh5 02/19 07:15 Order name: Diet Regular; Complete Time: 07:15 vg1 02/19 10:00 Order name: Diet Finger Food; Complete Time: 10:01 ph Administered Medications: 02/18 11:51 Drug: Ativan 0.5 mg Route: PO; bp 13:45 Follow up: Response: Anxiety decreased bp 19:35 Drug: Ativan 2 mg Route: IVP; Site: right forearm; rv 02/19 06:04 Follow up: Response: No adverse reaction rv 00:45 Drug: Nicotine 21 mg/24 hr 1 patches Route: Transdermal; Site: affected area; rv 06:04 Drug: Ativan 2 mg Route: IVP; Site: right forearm; rv 07:26 Drug: Geodon 20 mg Route: IM; Site: left deltoid; ph Disposition: 02/20/20 12:55 Discharged to Home. Impression: Adjustment disorder with depressed mood, Major depressive disorder, recurrent, Suicidal ideations. - Condition is Stable. - Discharge Instructions: Suicidal Feelings: How to Help Yourself, Stress and Stress Management, Major Depressive Disorder, [id number]. - Medication Reconciliation Form, Thank You Letter form. - Follow up: Private Physician; When: 2 - 3 days; Reason: If symptoms return, Further diagnostic work-up, Recheck today's complaints, Continuance of care, Re-evaluation by your physician. - Problem is an acute exacerbation. - Symptoms are resolved. Signatures: Dispatcher [employer] [facility] Alvarado Galindo MD MD cha Rittger, Kevin, MD MD kdr Munoz, Edgar, RN RN em Hall, Patricia, RN RN Cesar Velasquez RN Sony Gallego MD MD [facility] Artur Kennedy RN RN Pepe Anthony RN RN rr5 Corrections: (The following items were deleted from the chart) 02/18 11:23 10:52 CORONAVIRUS+MR.LAB.BRZ ordered. [facility] 02/19 12:54 02/18 03:12 02/19/2020 03:12 Transfer ordered to Psych Facility. Diagnosis is Suicidal kdr ideations. Reason for transfer: Higher level of care. Accepting physician is OSH. Condition is Stable. Problem is new. Symptoms are unchanged. ma2 02/19 13:13 12:55 02/20/2020 12:55 Discharged to Home. Impression: Adjustment disorder with em depressed mood; Major depressive disorder, recurrent; Suicidal ideations. Condition is Stable. Forms are Medication Reconciliation Form, Thank You Letter, Antibiotic Education, Prescription Opioid Use. Follow up: Private Physician; When: 2 - 3 days; Reason: If symptoms return, Further diagnostic work-up, Recheck today's complaints, Continuance of care, Re-evaluation by your physician. Problem is an acute exacerbation. Symptoms are resolved. kdr
[2020-02-19 03:20] LABS: ALT/SGPT 17 U/L (12-78); AST/SGOT 14 U/L (15-37); Albumin 3.9 g/dL (3.4-5.0); Alkaline Phosphatase 68 U/L (45-117); BUN Blood Urea Nitrogen 18 mg/dL (7-18); Bicarbonate 31 mmol/L (21-32); Bilirubin Direct < 0.1 mg/dL (0-0.2); Bilirubin Total 0.3 mg/dL (0.2-1.0); Glucose Level 106 mg/dL (74-106); Potassium 4.2 mmol/L (3.5-5.1); Protein, Total 7.2 g/dL (6.4-8.2); Sodium Level 140 mmol/L (136-145)
[2020-02-19 05:15] LABS: Barbiturates NEGATIVE (NEGATIVE); Benzodiazepines NEGATIVE (NEGATIVE); Cocaine NEGATIVE (NEGATIVE); METHAMPHETAM NEGATIVE (NEGATIVE); Methadone NEGATIVE (NEGATIVE); Opiates NEGATIVE (NEGATIVE); Phencyclidine NEGATIVE (NEGATIVE); THC Cannibis POSITIVE (NEGATIVE)
[2020-02-19 08:35] LABS: Urine Blood NEGATIVE (NEG); Urine Glucose NEGATIVE (NEG); Urine Protein NEGATIVE (NEG)
[2020-02-19] MEDS ORDERED: LORAZEPAM 0.5 MG TABLET ONE (12:03)
--- NOTE | 2020-02-19 12:40 | EKG ---
Test Date: 2020-02-19 Test Time: 02:45:47 Treatment Plant Mechanic: RR MEASUREMENT RESULTS: Intervals: Rate: 81 MI: 146 QRSD: 94 QT: 344 QTc: 399 [place]: P: 71 MI: 146 QRS: 71 T: 19 INTERPRETIVE STATEMENTS: Normal sinus rhythm Normal ECG Compared to ECG 01/19/2020 01:38:09 Sinus bradycardia no longer present Early repolarization no longer present Electronically Signed On 02-19-20 12:39:26 BODY STRAIGHTENER by Fuad Holder
[2020-02-19] MEDS ORDERED: LORazepam 2 MG/ML VIAL ONE (19:43)
[2020-02-20] MEDS ORDERED: NICOTINE 21 MG/PAT TD ONE (00:58)
[2020-02-20] MEDS ORDERED: LORazepam 2 MG/ML VIAL ONE (06:18)
[2020-02-20] MEDS ORDERED: WATER FOR INJ,STERILE 10 ML ONE (07:32)
[2020-02-20] MEDS ORDERED: ZIPRASIDONE MESYLA 20 MG/VIAL IM ONE (07:32)
[2020-02-20 17:05] VITALS: BP 116/79; TEMP 98.2; O2SAT 100
== END 2020-02-20 13:13 | disposition home or self-care (01) ==
LOC: EDBD 01:40 → ER 01:40
DX: F33.9 Major depressive disorder, recurrent, unspecified (principal); F43.21 Adjustment disorder with depressed mood; F20.9 Schizophrenia, unspecified; Z20.828 Contact with and (suspected) exposure to other viral communicable diseases
CPT/HCPCS: 36415; 80048; 80076; 80307; 80320; 80329; 81003; 85025; 85610; 85730; 93005; 96372; 96374; 99284; J3486; U0003

== ENCOUNTER 2020-02-20 17:50 | Emergency (ER) | payer SELFPAY ==
--- OUTSIDE RECORDS SUMMARY | 2020-02-20 17:52 | XMS REPORT | Continuity of Care Document ---
:1990 Author Organization [facility] t Address [address] [place] [address] Care Team Providers Name Role Phone Unavailable [...] = T4 Free) 1.060 ng/dL 0.930-1.700 RPR [id number] 19:40:08 Test Item Value Reference Range Interpretation Comments RPR Qual (test code = RPR Qual) Non-Reactive Non-Reactive Reactive Control (test code = Reactive Reactive Control) Weak Reactive Control (test Weak Reactive code = Weak Reactive Control) Non-Reactive Control (test code Non-Reactive = Non-Reactive Control) Lot # (test code = Lot #) [id number] Expiration Dt (test code = 10.31.20 N Expiration Dt) Hemoglobin [id number] 12:10:15 Test Item Value Reference Range Interpretation Comments Hemoglobin A1c (test code 5.2 % 4.8-5.9 No n Diabetic = Hemoglobin A1c) 4.8-5.9%Di abetic <7.0% Thyroid Stimulating [id number] 09:22:05 Test Item Value Reference Range Interpretation Comments TSH (test code = TSH) 6.780 mIU/mL 0.270-4.200 H Lipid [id number] 09:17:31 Test Item Value Reference Range Interpretation Comments Cholesterol Total 112 mg/dL 0-200 RISK OF HE ART (test code = DISEASEPublishe d by Cholesterol Total) [employer] Patti lyte Optimal Borderl ine [...] LDL/HDL Ratio=L DL Calc/HDL Chol Urine Drug [id number] 01:18:36 Test Item Value Reference Range Interpretation [...] confir matory test if desired . Alcohol [id number] 00:40:25 Test Item Value Reference Range Interpretation Comments Ethanol Level (test <0.00 g/dL 0.00-0.01 Intoxica carrie 0.080 g/dL code = Ethanol or more Level) Ethanol Inst (test <0 N code = Ethanol Inst) Comprehensive Metabolic [id number] 20:42:46 Test Item Value Reference Range Interpretation [...] A/G 2.2 ratio N Ratio) Comprehensive Metabolic [id number] 20:42:46 Test Item Value Reference Range Interpretation [...] National Kidney Foundation, http://nkdep.ni h.gov Comprehensive Metabolic [id number] 20:42:46 Test Item Value Reference Range Interpretation [...] Foundation, [email or web address].ni h.gov Urinalysis with Culture, if [id number] 20:26:39 Test Item Value Reference Range Interpretation [...] [id number] _IN D Complete Blood Count with [id number] 20:13:10 Test Item Value Reference Range Interpretation [...] code = IPF) 0 % N Automated [id number] 20:13:10 Test Item Value Reference Range Interpretation Comments Neutro Auto (test code = Neutro 62.8 % 36.0-70.0 Auto) Lymph Auto (test code = Lymph Auto) 22.9 % 12.0-44.0 Cascade Auto (test code = Cascade Auto) 11.0 % 0.0-11.0 Eos, Auto (test code = Eos, Auto) 2.3 % 0.0-7.0 Basophil Auto (test code = Basophil 0.6 % 0.0-2.0 Auto) Neutro Absolute (test code = Neutro 5.9 x10 1.6-7.4 Absolute) Lymph Absolute (test code = Lymph 2.15 x10 .50-4.60 Absolute) Cascade Absolute (test code = Cascade 1.03 x10 .00-1.20 Absolute) Eos Absolute (test code = Eos 0.22 x10 0.00-0.74 Absolute) Baso Absolute (test code = Baso 0.06 x10 0.00-0.21 Absolute) IG [id number] 20:13:10 Test Item Value Reference Range Interpretation Comments IG (test code = IG) 0.4 % 0.0-5.0 IG Abs (test code = IG Abs) 0 x10 N
[2020-02-20 18:52] LABS: Barbiturates NEGATIVE (NEGATIVE); Benzodiazepines NEGATIVE (NEGATIVE); Cocaine NEGATIVE (NEGATIVE); METHAMPHETAM NEGATIVE (NEGATIVE); Methadone NEGATIVE (NEGATIVE); Opiates NEGATIVE (NEGATIVE); Phencyclidine NEGATIVE (NEGATIVE); THC Cannibis NEGATIVE (NEGATIVE)
[2020-02-20 20:17] LABS: Urine Blood NEGATIVE (NEG); Urine Glucose NEGATIVE (NEG); Urine Protein NEGATIVE (NEG); Urine Specific Gravity 1.025 (1.005-1.030); Urine pH 7.5 (5.0-7.0)
[2020-02-20] MEDS ORDERED: LORAZEPAM 1 MG TABLET ONE (20:26)
[2020-02-20] MEDS ORDERED: ZIPRASIDONE MESYLA 20 MG/VIAL IM ONE (21:06)
--- NOTE | 2020-02-20 22:15 | EDPHYS ---
Physician Documentation [facility] Name: Darinel Jaeger III Age: 29 yrs Sex: Male : 1990 Arrival Date: 02/20/2020 Time: 17:50 Bed 8 Private MD: ED Physician Alvarado Galindo HPI: 02/19 18:15 This 29 yrs old Male presents to ER via Ambulatory with complaints of Psych cp Problem, Suicidal Ideation. 18:15 The patient presents to the emergency department with suicide ideation, and the patient cp has a plan, jump off building. Past psychiatric history: Prior diagnosis: addiction history, methamphetamines, bipolar disorder, depression, Psychiatric medications include: Risperdal, Trazodone. Historical: - Allergies: 18:32 No Known Allergies; ph - Home Meds: 02/20 07:18 trazodone 50 mg oral tab nightly [Active]; Risperdal 2 mg oral tab once daily [Active]; aa5 divalproex 250 mg oral Tb24 take 2 tabs every morning and 3 tabs every evening. [Active]; propranolol 40 mg oral tab 2 times per day [Active]; - PMHx: 02/19 18:32 Anxiety; Bipolar disorder; Depression; Methamphetamine abuse - snort; Schizophrenia; ph - PSHx: 18:32 None; ph - Immunization history:: Adult Immunizations unknown. - Social history:: Smoking status: Patient reports the use of cigarette tobacco products, smokes one-half pack cigarettes per day. ROS: 18:20 Psych: Positive for suicidal ideation, Negative for suicide gesture. cp 18:20 Eyes: Negative for injury, pain, redness, and discharge. cp 18:20 Constitutional: Negative for fever. 18:20 Cardiovascular: Negative for chest pain. 18:20 Respiratory: Negative for cough, shortness of breath, wheezing. 18:20 Abdomen/GI: Negative for abdominal pain, nausea, vomiting, and diarrhea. 18:20 All other systems are negative. Exam: 18:25 Constitutional: The patient appears in no acute distress, alert, awake, non-toxic, well cp developed, well nourished. 18:25 Head/Face: Normocephalic, atraumatic. cp 18:25 Eyes: Periorbital structures: appear normal, Conjunctiva: normal, no exudate, no injection, Lids and lashes: appear normal, bilaterally. 18:25 ENT: External ear(s): are unremarkable, Nose: is normal, Posterior pharynx: Airway: no evidence of obstruction, patent. 18:25 Chest/axilla: Inspection: normal, Palpation: is normal, no crepitus, no tenderness. 18:25 Cardiovascular: Rate: normal, Rhythm: regular. 18:25 Respiratory: the patient does not display signs of respiratory distress, Respirations: normal, no use of accessory muscles, no retractions, labored breathing, is not present, Breath sounds: are clear throughout, no decreased breath sounds, no stridor, no wheezing. 18:25 Abdomen/GI: Exam negative for discomfort, distension, guarding, Inspection: abdomen appears normal. 18:25 Back: pain, is absent. 18:25 Neuro: Orientation: to person, place \T\ time. Mentation: able to follow commands, slow to respond, Motor: moves all fours, strength is normal, Gait: is steady. Vital Signs: 18:00 BP 122 / 77; Pulse 64; Resp 18; Temp 97.8; Pulse Ox 100% on R/A; Weight 77.11 kg; ph Height 5 ft. 11 in. (180.34 cm); 02/20 06:06 BP 121 / 76; Pulse 66; Resp 16; Temp 98; Pulse Ox 99% on R/A; rv 02/19 18:00 Body Mass Index 23.71 (77.11 kg, 180.34 cm) ph MDM: 02/19 18:06 Patient medically screened. cp 22:21 Data reviewed: vital signs, nurses notes, lab test result(s). 02/19 18:10 Order name: Urine Drug Screen; Complete Time: 20:50 cp 02/19 18:48 Order name: Urine Dipstick--Ancillary (enter results); Complete Time: 20:50 bd 02/19 18:10 Order name: EKG; Complete Time: 18:10 02/19 18:10 Order name: Urine Dipstick-Ancillary (obtain specimen); Complete Time: 18:31 cp 02/20 07:39 Order name: Diet Finger Food; Complete Time: 07:40 dh3 Administered Medications: 20:12 Not Given (Patient Refused): Ativan 2 mg IVP once mg2 20:12 Drug: Ativan 2 mg Route: PO; mg2 22:00 Follow up: Response: No adverse reaction mg2 20:57 Drug: Geodon 20 mg Route: IM; Site: left deltoid; rv 22:00 Follow up: Response: No adverse reaction; Marked relief of symptoms mg2 Disposition: 02/21 07:32 Co-signature as Attending Physician, Chong Magdaleno MD I agree with the assessment and kdr plan of care. Disposition: 02/21/20 09:32 Discharged to Home. Impression: Major depressive disorder, recurrent, Suicidal ideations. - Condition is Stable. - Discharge Instructions: Suicidal Feelings: How to Help Yourself, Major Depressive Disorder. - Medication Reconciliation Form, Thank You Letter, Antibiotic Education, Prescription Opioid Use form. - Follow up: Private Physician; When: 1 - 2 days; Reason: Recheck today's complaints. - Problem is an ongoing problem. - Symptoms have improved. Signatures: Dispatcher [employer] EDAniceto Howard, RN NNEKA Chong Magdaleno MD MD kdr Daniela Leonard RN RN aa5 Jenny Garcia RN RN ph Alvarado Medrano PA PA Balaji Singer RN RN jl7 Kevan Jensen RN RN mg2 Artur Kennedy RN RN rv Corrections: (The following items were deleted from the chart) 02/20 05:04 02/19 18:10 PROTIME (+INR)+COAG.LAB.BRZ ordered. EDTN EDTN 02/20 05:04 02/19 18:10 PTT, ACTIVATED+COAG.LAB.BRZ ordered. EDTN EDTN 02/20 05:04 02/19 18:10 SALICYLATE+C.LAB.BRZ ordered. EDTN EDTN 02/20 05:07 02/19 18:10 Acetaminophen Level ordered. EDTN EDTN 02/20 05:07 02/19 18:10 Basic Metabolic Panel ordered. EDTN EDTN 02/20 05:07 02/19 18:10 CBC with Automated Diff ordered. EDTN EDTN 02/20 05:07 02/19 18:10 ETHANOL+C.LAB.BRZ ordered. EDTN EDTN 02/20 05:07 02/19 18:10 HEPATIC FUNCTION+C.LAB.BRZ ordered. EDMS EDMS 02/20 07:18 12/23 18:35 Home Meds: Trazodone Oral; [facility] 02/20 07:18 02/19 18:35 Home Meds: Risperdal Oral; [facility] 02/20 07:18 02/19 18:35 Home Meds: divalproex oral oral; [facility] 02/20 07:18 02/19 18:35 Home Meds: Propranolol Oral; [facility] 02/20 07:24 02/19 18:10 EKG - Nurse/Tech ordered. [facility] 02/20 07:24 02/19 18:10 IV Saline Lock ordered. [facility] 02/20 07:24 02/19 18:10 Labs collected and sent ordered. [facility] 02/20 09:30 02/19 22:14 02/20/2020 22:14 Transfer ordered to [facility]. Diagnosis is Suicidal cp ideations. Reason for transfer: Higher level of care. Accepting physician is Doctor. Condition is Stable. Problem is an ongoing problem. Symptoms have improved. 02/20 09:41 09:32 02/21/2020 09:32 Discharged to Home. Impression: Major depressive disorder, jl7 recurrent; Suicidal ideations. Condition is Stable. Forms are Medication Reconciliation Form, Thank You Letter, Antibiotic Education, Prescription Opioid Use. Follow up: Private Physician; When: 1 - 2 days; Reason: Recheck today's complaints. Problem is an ongoing problem. Symptoms have improved. cp
--- NOTE | 2020-02-20 22:15 | ER ---
Nurse's Notes [facility] Name: Darinel Jaeger III Age: 29 yrs Sex: Male : 1990 Arrival Date: 02/20/2020 Time: 17:50 Bed 8 Private MD: Diagnosis: Major depressive disorder, recurrent;Suicidal ideations Presentation: 02/19 18:00 Chief complaint: Patient states: Suicidal thoughts, recently d/c from ED for same ph complaint, states, " I wasn't suicidal when I left earlier but then I left and started thinking about Kedar and stuff and started feeling suicidal again. I need to take my Trazodone so it'll knock me out and I can sleep." Pt denies organized plan, has home medications w/ him, denies street drug or ETOH use since d/c. Coronavirus screen: Client denies travel out of the [place] in the last 14 days. At this time, the client does not indicate any symptoms associated with coronavirus-19. The client reports previous COVID testing was negative. Date of collection: February 19, 2020 results are located within the EHR/EMR. Ebola Screen: No symptoms or risks identified at this time. Initial Sepsis Screen: Does the patient meet any 2 criteria? No. Patient's initial sepsis screen is negative. Does the patient have a suspected source of infection? No. Patient's initial sepsis screen is negative. Risk Assessment: Do you want to hurt yourself or someone else? Patient reports desire/thoughts of hurting themselves or someone else. Provider notified. Onset of symptoms was February 20, 2020. 18:00 Method Of Arrival: Ambulatory ph 18:00 Acuity: KAVON 2 ph Triage Assessment: 19:30 Pain: Denies pain. mg2 20:00 General: Behavior is restless. mg2 Historical: - Allergies: 18:32 No Known Allergies; ph - Home Meds: 02/20 07:18 trazodone 50 mg oral tab nightly [Active]; Risperdal 2 mg oral tab once daily [Active]; aa5 divalproex 250 mg oral Tb24 take 2 tabs every morning and 3 tabs every evening. [Active]; propranolol 40 mg oral tab 2 times per day [Active]; - PMHx: 02/19 18:32 Anxiety; Bipolar disorder; Depression; Methamphetamine abuse - snort; Schizophrenia; ph - PSHx: 18:32 None; ph - Immunization history:: Adult Immunizations unknown. - Social history:: Smoking status: Patient reports the use of cigarette tobacco products, smokes one-half pack cigarettes per day. Screenin:35 Abuse screen: Denies threats or abuse. Denies injuries from another. Nutritional ph screening: No deficits noted. Tuberculosis screening: No symptoms or risk factors identified. Fall Risk None identified. Assessment: 18:20 Reassessment: spoke with provider, will hold everything except UDS and reuse the labs em and EKG from this morning since pt was discharged earlier today. 20:29 Reassessment: patient is pacing in the room and saying he is hearing things. provider mg2 informed and ordered medicine. 21:44 Reassessment: sitter at bedside. patient is calm. General: Appears in no apparent mg2 distress. 23:30 Reassessment: patient sleeping. sitter at bedside. mg2 12 01:48 Reassessment: patient sleeping on bed. mg2 02:47 Reassessment: patient sleeping. sitter at bedside. mg2 04:23 Reassessment: patient is awake. was asking for water. water given. mg2 06:38 Reassessment: Patient appears in no apparent distress at this time. Patient and/or mg2 family updated on plan of care and expected duration. Pain level reassessed. sandwich served to the patient. 07:00 Reassessment: Patient is alert, oriented x 3, equal unlabored respirations, skin aa5 warm/dry/pink. Pt sitting up in bed watching TV. . 08:00 Reassessment: Pt now resting in bed with eyes closed, respirations even and unlabored, aa5 skin is pink/warm/dry. Awaiting breakfast. . 08:30 Reassessment: Patient is alert, oriented x 3, equal unlabored respirations, skin aa5 warm/dry/pink. Pt given morning home meds per MD: Divalproex 500mg PO, Risperidone 2mg PO, Propanolol 40mg PO. Pt ate 100% of breakfast and tolerated well. Pt appears calm and cooperative. Pt denies suicidal ideations, denies hallucinations, denies homicidal ideations. Pt states "I feel much better now and I would like to go home for Kedar with my family". MD was notified. . 09:30 Reassessment: Pt A\\T\\Ox4, denies SI, denies HI, reports improved mood and mental status, jl7 states "I'll go to my aunts today and then my mom is coming down tomorrow so I'll go with her." ERD notified. Psych: 02/19 18:36 Subjective: Delusions are denied, Hallucinations are denied Having thoughts of suicide. ph Denies suicidal plan. Objective: Patient is cooperative, Speech is normal, Affect is appropriate. Interventions: Removed personal items and placed in bag. Patient placed in hospital gown. Urine collected and sent for urine drug test. Suicide Risk Assessment: Sad Person Scale: Sex of patient: Male: Score 1 point. Age of patient: Score 1 point if patient 15-34. Depression: Score 1 point if signs of depression are present. Previous Attempt: Score 0 point if patient has not previously attempted suicide. Substance Abuse: Score 1 point if patient abuses alcohol or drugs. Rational Thinking: Score 1 point if patient is lacking rational thinking. Social Support: Score 1 point if social support is lacking and/or unavailable. Organized Plan: Score 0 if patient did not have an organized plan in place. Relationship: Score 1 point if patient is , , , or for a single male Chronic Sickness: Score 0 point if patient does not have a chronic illness, debilitating, or severe disorder. TOTAL POINTS: If total points are 7-10, the proposed clinical action is to hospitalize or commit. Implement suicide precautions. Safety Checks: Personal items have been removed. Door is open. Visitors are present. Pt denies substance abuse. 18:37 Commitment: Patient will be a voluntary commitment. ph Vital Signs: 18:00 BP 122 / 77; Pulse 64; Resp 18; Temp 97.8; Pulse Ox 100% on R/A; Weight 77.11 kg; ph Height 5 ft. 11 in. (180.34 cm); 02/20 06:06 BP 121 / 76; Pulse 66; Resp 16; Temp 98; Pulse Ox 99% on R/A; rv 02/19 18:00 Body Mass Index 23.71 (77.11 kg, 180.34 cm) ph ED Course: 02/19 17:50 Patient arrived in ED. rg4 18:00 Jenny Garcia, NNEKA is Primary Nurse. ph 18:02 Alvarado Medrano PA is PHCP. 18:02 Chong Magdaleno MD is Attending Physician. cp 18:07 Triage completed. ph 18:27 Urine collected: clean catch specimen, clear. em 18:36 Arm band placed on Patient placed in an exam room, on a stretcher. ph 18:36 Patient has correct armband on for positive identification. Placed in gown. Bed in low ph position. Call light in reach. Side rails up X 1. Warm blanket given. 20:04 Primary Nurse role handed off by Jenny Garcia RN mw2 20:09 Kevan Jensen, NNEKA is Primary Nurse. mg2 21:47 No provider procedures requiring assistance completed. Patient did not have IV access mg2 during this emergency room visit. 12 07:59 Attending Physician role handed off by Chong Magdaleno MD [facility] 07:59 Alvarado Galindo MD is Attending Physician. [facility] 08:30 Diet: Patient given a regular meal tray. 3 Administered Medications: 02/19 20:12 Not Given (Patient Refused): Ativan 2 mg IVP once mg2 20:12 Drug: Ativan 2 mg Route: PO; mg2 22:00 Follow up: Response: No adverse reaction mg2 20:57 Drug: Geodon 20 mg Route: IM; Site: left deltoid; rv 22:00 Follow up: Response: No adverse reaction; Marked relief of symptoms mg2 Outcome: 22:14 ER care complete, transfer ordered by MD. 02/20 09:32 Discharge ordered by MD. 09:40 Discharged to home ambulatory. jl7 09:40 Condition: stable 09:40 Discharge instructions given to patient, Instructed on discharge instructions, follow up and referral plans. Demonstrated understanding of instructions, follow-up care. 09:41 Patient left the ED. jl7 Signatures: Alvarado Galindo MD MD cha Munoz, Edgar, RN RN Daniela Gandhi, RN RN aa5 Jenny Garcia RN RN Alvarado Medrano PA PA cp Garcia, Rubi 4 aBlaji Pope RN RN jl7 Nancy Yang 3 Juan Fried 2 Kevan Jensen RN RN mg2 Artur Kennedy RN RN rv Corrections: (The following items were deleted from the chart) 06:38 06:38 Reassessment: hailey served to the patient. mg2 mg2 07:18 02/19 18:35 Home Meds: Trazodone Oral; ph aa5 02/20 07:02/19 18:35 Home Meds: Risperdal Oral; [facility] 02/20 07:18 02/19 18:35 Home Meds: divalproex oral oral; ph 5 02/20 07:18 02/19 18:35 Home Meds: Propranolol Oral; [facility]
[2020-02-21 09:51] VITALS: BP 121/76; TEMP 98; O2SAT 99
== END 2020-02-21 09:41 | disposition home or self-care (01) ==
LOC: ER 17:50
DX: R45.851 Suicidal ideations (principal); F33.9 Major depressive disorder, recurrent, unspecified; F20.9 Schizophrenia, unspecified; F17.210 Nicotine dependence, cigarettes, uncomplicated
CPT/HCPCS: 80307; 81003; 93005; 96372; 99284; J3486

== ENCOUNTER 2020-02-21 19:07 | Emergency (ER) | payer SELFPAY ==
--- OUTSIDE RECORDS SUMMARY | 2020-02-21 19:10 | XMS REPORT | Continuity of Care Document ---
:1990 Author Organization [facility] t Address [address] [place] [address] Care Team Providers Name Role Phone Unavailable [...] = T4 Free) 1.060 ng/dL 0.930-1.700 RPR [id number] 19:40:08 Test Item Value Reference Range Interpretation Comments RPR Qual (test code = RPR Qual) Non-Reactive Non-Reactive Reactive Control (test code = Reactive Reactive Control) Weak Reactive Control (test Weak Reactive code = Weak Reactive Control) Non-Reactive Control (test code Non-Reactive = Non-Reactive Control) Lot # (test code = Lot #) [id number] Expiration Dt (test code = 10.31.20 N Expiration Dt) Hemoglobin [id number] 12:10:15 Test Item Value Reference Range Interpretation Comments Hemoglobin A1c (test code 5.2 % 4.8-5.9 No n Diabetic = Hemoglobin A1c) 4.8-5.9%Di abetic <7.0% Thyroid Stimulating [id number] 09:22:05 Test Item Value Reference Range Interpretation Comments TSH (test code = TSH) 6.780 mIU/mL 0.270-4.200 H Lipid [id number] 09:17:31 Test Item Value Reference Range Interpretation Comments Cholesterol Total 112 mg/dL 0-200 RISK OF HE ART (test code = DISEASEPublishe d by Cholesterol Total) [place] [employer] Patti lyte Optimal Borderl ine [...] LDL/HDL Ratio=L DL Calc/HDL Chol Urine Drug [id number] 01:18:36 Test Item Value Reference Range Interpretation [...] confir matory test if desired . Alcohol [id number] 00:40:25 Test Item Value Reference Range Interpretation Comments Ethanol Level (test <0.00 g/dL 0.00-0.01 Intoxica carrie 0.080 g/dL code = Ethanol or more Level) Ethanol Inst (test <0 N code = Ethanol Inst) Comprehensive Metabolic [id number] 20:42:46 Test Item Value Reference Range Interpretation [...] A/G 2.2 ratio N Ratio) Comprehensive Metabolic [id number] 20:42:46 Test Item Value Reference Range Interpretation [...] National Kidney Foundation, http://nkdep.ni h.gov Comprehensive Metabolic [id number] 20:42:46 Test Item Value Reference Range Interpretation [...] Foundation, http://nkdep.ni h.gov Urinalysis with Culture, if [id number] 20:26:39 Test Item Value Reference Range Interpretation [...] GL_[id number] _IN D Complete Blood Count with [id number] 20:13:10 Test Item Value Reference Range Interpretation [...] code = IPF) 0 % N Automated [id number] 20:13:10 Test Item Value Reference Range Interpretation Comments Neutro Auto (test code = Neutro 62.8 % 36.0-70.0 Auto) Lymph Auto (test code = Lymph Auto) 22.9 % 12.0-44.0 Finney Auto (test code = Finney Auto) 11.0 % 0.0-11.0 Eos, Auto (test code = Eos, Auto) 2.3 % 0.0-7.0 Basophil Auto (test code = Basophil 0.6 % 0.0-2.0 Auto) Neutro Absolute (test code = Neutro 5.9 x10 1.6-7.4 Absolute) Lymph Absolute (test code = Lymph 2.15 x10 .50-4.60 Absolute) Finney Absolute (test code = Finney 1.03 x10 .00-1.20 Absolute) Eos Absolute (test code = Eos 0.22 x10 0.00-0.74 Absolute) Baso Absolute (test code = Baso 0.06 x10 0.00-0.21 Absolute) IG [id number] 20:13:10 Test Item Value Reference Range Interpretation Comments IG (test code = IG) 0.4 % 0.0-5.0 IG Abs (test code = IG Abs) 0 x10 N
[2020-02-21 20:55] LABS: Absolute Lymphocytes (CBC) 2.2 K/uL (0.7-4.9); Basophils % 1.1 % (0-1.3); Hematocrit 42.8 % (39.6-49.0); MPV 9.6 fL (7.6-11.3); RBC Red Blood Cell Count 4.67 M/uL (4.33-5.43)
[2020-02-21 21:00] LABS: Protime INR 0.97
[2020-02-21] MEDS ORDERED: LORAZEPAM 1 MG TABLET ONE (21:05)
[2020-02-21 21:29] LABS: Urine Blood NEGATIVE (NEG); Urine Glucose NEGATIVE (NEG); Urine Protein NEGATIVE (NEG)
[2020-02-21 21:29] LABS: ALT/SGPT 18 U/L (12-78); AST/SGOT 15 U/L (15-37); Albumin 3.8 g/dL (3.4-5.0); Alkaline Phosphatase 59 U/L (45-117); BUN Blood Urea Nitrogen 13 mg/dL (7-18); Bicarbonate 31 mmol/L (21-32); Bilirubin Direct < 0.1 mg/dL (0-0.2); Bilirubin Total 0.3 mg/dL (0.2-1.0); Glucose Level 94 mg/dL (74-106); Protein, Total 7.3 g/dL (6.4-8.2); Sodium Level 141 mmol/L (136-145)
[2020-02-21 21:37] LABS: Barbiturates NEGATIVE (NEGATIVE); Benzodiazepines NEGATIVE (NEGATIVE); Cocaine NEGATIVE (NEGATIVE); METHAMPHETAM NEGATIVE (NEGATIVE); Methadone NEGATIVE (NEGATIVE); Opiates NEGATIVE (NEGATIVE); Phencyclidine NEGATIVE (NEGATIVE); THC Cannibis NEGATIVE (NEGATIVE)
--- NOTE | 2020-02-22 05:07 | ER ---
Nurse's Notes [facility] Name: Darinel Jaeger III Age: 29 yrs Sex: Male : 1990 Arrival Date: 02/21/2020 Time: 19:14 Bed 18 Private MD: Diagnosis: Psychosis;Schizoaffective disorder, unspecified Presentation: 02/20 19:21 Chief complaint: Patient states: Hearing voices still. States he was here 2 times ll1 recently. States he has been taking his psych meds as prescribed. Denies SI/HI. Coronavirus screen: Client denies travel out of the [place] in the last 14 days. At this time, the client does not indicate any symptoms associated with coronavirus-19. Ebola Screen: Patient denies travel to an Ebola-affected area in the 21 days before illness onset. Initial Sepsis Screen: Does the patient meet any 2 criteria? No. Patient's initial sepsis screen is negative. Does the patient have a suspected source of infection? No. Patient's initial sepsis screen is negative. Risk Assessment: Do you want to hurt yourself or someone else? Patient reports no desire to harm self or others. Onset of symptoms is unknown. 19:21 Method Of Arrival: Ambulatory ll1 19:21 Acuity: KAVON 2 ll1 Historical: - Allergies: 19:21 No Known Allergies; ll1 - PMHx: 19:21 Anxiety; Bipolar disorder; Depression; Methamphetamine abuse - snort; Schizophrenia; ll1 - PSHx: 19:21 None; ll1 - Immunization history:: Flu vaccine is not up to date. - Social history:: Smoking status: Patient reports the use of cigarette tobacco products, smokes one pack cigarettes per day. Screenin:50 Abuse screen: Denies threats or abuse. Nutritional screening: No deficits noted. jb4 Tuberculosis screening: No symptoms or risk factors identified. Fall Risk None identified. Assessment: 19:50 General: Appears in no apparent distress. comfortable, Behavior is calm, cooperative, jb4 appropriate for age, Pt reports hearing voices that are saying they are going to shoot him.. Pain: Denies pain. Neuro: Level of Consciousness is awake, alert, obeys commands, Oriented to person, place, time, situation. Cardiovascular: Patient's skin is warm and dry. Respiratory: Airway is patent Respiratory effort is even, unlabored, Respiratory pattern is regular, symmetrical. GI: No signs and/or symptoms were reported involving the gastrointestinal system. : No signs and/or symptoms were reported regarding the genitourinary system. EENT: No signs and/or symptoms were reported regarding the EENT system. Derm: Skin is intact, Skin is pink, warm \T\ dry. Musculoskeletal: Circulation, motion, and sensation intact. Range of motion: intact in all extremities. 21:00 Reassessment: Patient appears in no apparent distress at this time. Patient and/or jb4 family updated on plan of care and expected duration. Pain level reassessed. Patient is alert, oriented x 3, equal unlabored respirations, skin warm/dry/pink. 22:59 Reassessment: Patient appears in no apparent distress at this time. Patient and/or jb4 family updated on plan of care and expected duration. Pain level reassessed. Patient is alert, oriented x 3, equal unlabored respirations, skin warm/dry/pink. Pt speaking with [facility]. 02/21 01:16 Reassessment: PT resting in bed with eyes closed, respirations are even and unlabored jb4 with no s/s of pain or distress noted. 03:54 Reassessment: Patient appears in no apparent distress at this time. No changes from jb4 previously documented assessment. Patient and/or family updated on plan of care and expected duration. Pain level reassessed. 05:03 Reassessment: Patient appears in no apparent distress at this time. Patient and/or jb4 family updated on plan of care and expected duration. Pain level reassessed. Patient is alert, oriented x 3, equal unlabored respirations, skin warm/dry/pink. PT denies having any auditory or visual hallucinations at this time. Patient states symptoms have improved. Vital Signs: 02/20 19:21 BP 138 / 85; Pulse 72; Resp 17; Temp 97.7; Pulse Ox 100% ; Weight 72.57 kg; Height 5 ll1 ft. 11 in. (180.34 cm); Pain 0/10; 02/21 05:04 BP 123 / 59; Pulse 67; Resp 16; Temp 98.1(TE); Pulse Ox 98% on R/A; jb4 02/20 19:21 Body Mass Index 22.32 (72.57 kg, 180.34 cm) ll1 ED Course: 02/20 19:14 Patient arrived in ED. as 19:21 Arm band placed on. 1 19:23 Triage completed. 1 19:49 Romie Perkins MD is Attending Physician. 7 19:50 Patient has correct armband on for positive identification. Bed in low position. Call jb4 light in reach. Side rails up X 1. Pulse ox on. NIBP on. 20:10 Liu Calle, RN is Primary Nurse. jb4 20:30 Initial lab(s) drawn, by ma, sent to lab. Inserted saline lock: 20 gauge in right jb4 antecubital area, using aseptic technique. Blood collected. 22:00 contacted [facility] Crisis Line spoke to Jona to have a screener evaluate the patient. 2 02/21 05:05 Delon Gonzalez MD is Referral Physician. 7 05:12 No provider procedures requiring assistance completed. IV discontinued, intact, jb4 bleeding controlled, No redness/swelling at site. Pressure dressing applied. Administered Medications: 02/20 20:52 Drug: Ativan 1 mg Route: PO; jb4 22:00 Follow up: Response: No adverse reaction; Marked relief of symptoms jb Outcome: 02/21 05:06 Discharge ordered by MD. 7 05:12 Discharged to home ambulatory. [facility] 05:12 Condition: stable 05:12 Discharge instructions given to patient, Instructed on discharge instructions, follow up and referral plans. Demonstrated understanding of instructions, follow-up care. 05:14 Patient left the ED. [facility] Signatures: Josy Hogue James, RN RN 4 Juan Fried 2 Liane Hernandez RN RN 1 Romie Perkins MD MD [facility] Corrections: (The following items were deleted from the chart) 02/20 21:53 19:30 General: Appears in no apparent distress. comfortable, Behavior is calm, jb4 cooperative, appropriate for age, jb4 19:30 Pain: Denies pain. jb4 jb4 53 19:30 Neuro: Level of Consciousness is awake, alert, obeys commands, Oriented to jb4 person, place, time, situation, jb4 53 19:30 Cardiovascular: Patient's skin is warm and dry. jb4 jb4 21:53 19:30 Respiratory: Airway is patent Respiratory effort is even, unlabored, Respiratory jb4 pattern is regular, symmetrical, jb4 19:30 GI: No signs and/or symptoms were reported involving the gastrointestinal system. jb4 jb4 19:30 : No signs and/or symptoms were reported regarding the genitourinary system. [id number] 19:30 EENT: No signs and/or symptoms were reported regarding the EENT system. jb4 jb4 19:30 Derm: Skin is intact, Skin is pink, warm \T\ dry. jb4 jb4 19:30 Musculoskeletal: Circulation, motion, and sensation intact. Range of motion: jb4 intact in all extremities, jb4 02/21 05:04 02/20 19:50 General: Appears in no apparent distress. comfortable, Behavior is calm, jb4 cooperative, appropriate for age, jb4
--- NOTE | 2020-02-22 05:07 | EDPHYS ---
Physician Documentation [facility] Name: Darinel Jaeger III Age: 29 yrs Sex: Male : 1990 Arrival Date: 02/21/2020 Time: 19:14 Bed 18 Private MD: ED Physician Romie Perkins HPI: 02/20 20:01 This 29 yrs old Male presents to ER via Ambulatory with complaints of Psych mh7 Problem. 20:01 The patient presents to the emergency department with psychosis, has experienced mh7 auditory hallucinations, Voice stating that it will harm him. Onset: The symptoms/episode began/occurred today. Past psychiatric history: Prior diagnosis: bipolar disorder, depression, schizophrenia, Psychiatric medications include: none, Primary psychiatric physician: the patient does not have a primary psychiatric physician, the patient has not had a prior suicide gesture, the patient has a previous inpatient psychiatric history, last month, the patient's last psychiatric treatment was. Associated signs and symptoms: Pertinent positives; hallucinations, Pertinent negatives: abdominal pain, anxiety, chest pain, chills, delusions, depression, fever, headache, homicidal ideation, nausea, night sweats, palpitations, paranoia, shortness of breath, substance abuse, suicide ideation, tremor, vomiting. Severity of symptoms: At their worst the symptoms were moderate today, in the emergency department the symptoms are unchanged. The patient has been recently seen at the [facility] Emergency Department, today. Historical: - Allergies: 19:21 No Known Allergies; ll1 - PMHx: 19:21 Anxiety; Bipolar disorder; Depression; Methamphetamine abuse - snort; Schizophrenia; ll1 - PSHx: 19:21 None; ll1 - Immunization history:: Flu vaccine is not up to date. - Social history:: Smoking status: Patient reports the use of cigarette tobacco products, smokes one pack cigarettes per day. ROS: 20:01 Constitutional: Negative for fever, chills, and weight loss, Eyes: Negative for injury, mh7 pain, redness, and discharge, ENT: Negative for injury, pain, and discharge, Neck: Negative for injury, pain, and swelling, Cardiovascular: Negative for chest pain, palpitations, and edema, Respiratory: Negative for shortness of breath, cough, wheezing, and pleuritic chest pain, Abdomen/GI: Negative for abdominal pain, nausea, vomiting, diarrhea, and constipation, Back: Negative for injury and pain, : Negative for injury, bleeding, discharge, and swelling, MS/Extremity: Negative for injury and deformity, Skin: Negative for injury, rash, and discoloration, Neuro: Negative for headache, weakness, numbness, tingling, and seizure, Allergy/Immunology: Negative for hives, rash, and allergies, Endocrine: Negative for neck swelling, polydipsia, polyuria, polyphagia, and marked weight changes, Hematologic/Lymphatic: Negative for swollen nodes, abnormal bleeding, and unusual bruising. Exam: 20:01 Head/Face: Normocephalic, atraumatic. Eyes: Pupils equal round and reactive to light, mh7 extra-ocular motions intact. Lids and lashes normal. Conjunctiva and sclera are non-icteric and not injected. Cornea within normal limits. Periorbital areas with no swelling, redness, or edema. Neck: Trachea midline, no thyromegaly or masses palpated, and no cervical lymphadenopathy. Supple, full range of motion without nuchal rigidity, or vertebral point tenderness. No Meningismus. Chest/axilla: Normal chest wall appearance and motion. Nontender with no deformity. No lesions are appreciated. Cardiovascular: Regular rate and rhythm with a normal S1 and S2. No gallops, murmurs, or rubs. Normal PMI, no JVD. No pulse deficits. Respiratory: Lungs have equal breath sounds bilaterally, clear to auscultation and percussion. No rales, rhonchi or wheezes noted. No increased work of breathing, no retractions or nasal flaring. Abdomen/GI: Soft, non-tender, with normal bowel sounds. No distension or tympany. No guarding or rebound. No evidence of tenderness throughout. Back: No spinal tenderness. No costovertebral tenderness. Full range of motion. Skin: Warm, dry with normal turgor. Normal color with no rashes, no lesions, and no evidence of cellulitis. MS/ Extremity: Pulses equal, no cyanosis. Neurovascular intact. Full, normal range of motion. Neuro: Awake and alert, GCS 15, oriented to person, place, time, and situation. Cranial nerves II-XII grossly intact. Motor strength 5/5 in all extremities. Sensory grossly intact. Cerebellar exam normal. Normal gait. 20:01 Constitutional: The patient appears in no acute distress, alert, awake, anxious. 20:01 Psych: Behavior/mood is cooperative, anxious, Affect is calm, Oriented to person, place, time, Patient has no thoughts/intents to harm self or others. Judgement / Insight is normal. Memory is normal. Delusions/hallucinations are present and described as Hearing voices that tell him they are going to kill him. Vital Signs: 19:21 BP 138 / 85; Pulse 72; Resp 17; Temp 97.7; Pulse Ox 100% ; Weight 72.57 kg; Height 5 ll1 ft. 11 in. (180.34 cm); Pain 0/10; 02/21 05:04 BP 123 / 59; Pulse 67; Resp 16; Temp 98.1(TE); Pulse Ox 98% on R/A; jb4 02/20 19:21 Body Mass Index 22.32 (72.57 kg, 180.34 cm) ll1 MDM: 04:59 Differential diagnosis: drug withdrawal. acute psychotic break, psychosis secondary to mh7 non-compliance, Substance Abuse. Data reviewed: vital signs, nurses notes, EMS record, old medical records, lab test result(s), CBC, drug level(s), acetaminophen, salicylate, electrolytes, urinalysis, urine drug screen. Data interpreted: Pulse oximetry: on room air is 100 %. Interpretation: normal. Counseling: I had a detailed discussion with the patient and/or guardian regarding: the historical points, exam findings, and any diagnostic results supporting the discharge/admit diagnosis, the presence of at least one elevated blood pressure reading (>120/80) during this emergency department visit, lab results, the need for outpatient follow up, a psychiatrist, to return to the emergency department if symptoms worsen or persist or if there are any questions or concerns that arise at home. Response to treatment: the patient's symptoms have markedly improved after treatment. ED course: Patient evaluated by [facility] Psychiatry service and cleared for discharge and outpatient follow up. He is not suicidal or homicidal. According to [facility], patient was discharged from [place] on 02/18/2020 with diagnosis of Schizoaffective Disorder. Patient reported being homeless and was given information for care home placement.. 05:06 Patient medically screened. [facility] 02/20 19:59 Order name: Acetaminophen; Complete Time: 21:42 [facility] 02/20 19:59 Order name: Basic Metabolic Panel; Complete Time: 21:42 [facility] 02/20 19:59 Order name: CBC with Diff; Complete Time: 21:13 [facility] 02/20 19:59 Order name: ETOH Level; Complete Time: 21:42 [facility] 02/20 19:59 Order name: Hepatic Function; Complete Time: 21:42 [facility] 02/20 19:59 Order name: PT-INR; Complete Time: 21:13 [facility] 02/20 19:59 Order name: Ptt, Activated; Complete Time: 21:13 [facility] 02/20 19:59 Order name: Salicylate; Complete Time: 21:42 [facility] 02/20 19:59 Order name: Urine Drug Screen; Complete Time: 21:42 [facility] 02/20 19:59 Order name: EKG - Nurse/Tech; Complete Time: 20:47 [facility] 02/20 19:59 Order name: IV Saline Lock; Complete Time: 20:47 [facility] 02/20 21:15 Order name: Urine Dipstick--Ancillary (enter results); Complete Time: 21:42 [facility] 02/20 19:59 Order name: Labs collected and sent; Complete Time: 20:47 [facility] 02/20 19:59 Order name: Urine Dipstick-Ancillary (obtain specimen); Complete Time: 21:24 [facility] Administered Medications: 02/20 20:52 Drug: Ativan 1 mg Route: PO; jb4 22:00 Follow up: Response: No adverse reaction; Marked relief of symptoms jb4 Disposition: 02/22/20 05:06 Discharged to Home. Impression: Psychosis, Schizoaffective disorder, unspecified. - Condition is Stable. - Discharge Instructions: Schizoaffective Disorder. - Medication Reconciliation Form, Thank You Letter, Antibiotic Education, Prescription Opioid Use form. - Follow up: Private Physician; When: 1 - 2 days; Reason: Worsening of condition, Recheck today's complaints, Continuance of care, Re-evaluation by your physician. Follow up: Delon Gonzalez MD; When: 1 - 2 days; Reason: Worsening of condition, Recheck today's complaints. - Problem is an acute exacerbation. - Symptoms have improved. Signatures: Dispatcher [employer] EDLiu Maynard RN RN jb4 Liane Hernandez RN RN ll1 Romie Perkins MD MD mh7 Corrections: (The following items were deleted from the chart) 02/21 05:14 05:06 02/22/2020 05:06 Discharged to Home. Impression: Psychosis; Schizoaffective jb4 disorder, unspecified. Condition is Stable. Forms are Medication Reconciliation Form, Thank You Letter, Antibiotic Education, Prescription Opioid Use. Follow up: Private Physician; When: 1 - 2 days; Reason: Worsening of condition, Recheck today's complaints, Continuance of care, Re-evaluation by your physician. Follow up: Delon Gonzalez; When: 1 - 2 days; Reason: Worsening of condition, Recheck today's complaints. Problem is an acute exacerbation. Symptoms have improved. mh7
[2020-02-22 05:21] VITALS: BP 123/59; TEMP 98.1; O2SAT 98
== END 2020-02-22 05:14 | disposition home or self-care (01) ==
LOC: ER 19:07
DX: F29 Unspecified psychosis not due to a substance or known physiological condition (principal); F20.9 Schizophrenia, unspecified; F17.210 Nicotine dependence, cigarettes, uncomplicated
CPT/HCPCS: 36415; 80048; 80076; 80307; 80320; 80329; 81003; 85025; 85610; 85730; 93005; 99284

== ENCOUNTER 2020-02-22 | Emergency (ER) | payer SELFPAY ==
--- OUTSIDE RECORDS SUMMARY | 2020-02-22 12:44 | XMS REPORT | Continuity of Care Document ---
:1990 Author Organization [facility] t Address [address] [place] [address] Care Team Providers Name Role Phone Unavailable [...] = T4 Free) 1.060 ng/dL 0.930-1.700 RPR [id number] 19:40:08 Test Item Value Reference Range Interpretation Comments RPR Qual (test code = RPR Qual) Non-Reactive Non-Reactive Reactive Control (test code = Reactive Reactive Control) Weak Reactive Control (test Weak Reactive code = Weak Reactive Control) Non-Reactive Control (test code Non-Reactive = Non-Reactive Control) Lot # (test code = Lot #) [id number] Expiration Dt (test code = 10.31.20 N Expiration Dt) Hemoglobin [id number] 12:10:15 Test Item Value Reference Range Interpretation Comments Hemoglobin A1c (test code 5.2 % 4.8-5.9 No n Diabetic = Hemoglobin A1c) 4.8-5.9%Di abetic <7.0% Thyroid Stimulating [id number] 09:22:05 Test Item Value Reference Range Interpretation Comments TSH (test code = TSH) 6.780 mIU/mL 0.270-4.200 H Lipid [id number] 09:17:31 Test Item Value Reference Range Interpretation Comments Cholesterol Total 112 mg/dL 0-200 RISK OF HE ART (test code = DISEASEPublishe d by Cholesterol Total) [employer] Patti lyte Optimal Borderl ine [...] LDL/HDL Ratio=L DL Calc/HDL Chol Urine Drug [id number] 01:18:36 Test Item Value Reference Range Interpretation [...] confir matory test if desired . Alcohol [id number] 00:40:25 Test Item Value Reference Range Interpretation Comments Ethanol Level (test <0.00 g/dL 0.00-0.01 Intoxica carrie 0.080 g/dL code = Ethanol or more Level) Ethanol Inst (test <0 N code = Ethanol Inst) Comprehensive Metabolic [id number] 20:42:46 Test Item Value Reference Range Interpretation [...] A/G 2.2 ratio N Ratio) Comprehensive Metabolic [id number] 20:42:46 Test Item Value Reference Range Interpretation [...] National Kidney Foundation, http://[email or web address].ni h.gov Comprehensive Metabolic [id number] 20:42:46 Test Item Value Reference Range Interpretation [...] Foundation, [email or web address] h.gov Urinalysis with Culture, if [id number] 20:26:39 Test Item Value Reference Range Interpretation [...] GL_SJM_UA_MICRO _IN D Complete Blood Count with [id number] 20:13:10 Test Item Value Reference Range Interpretation [...] code = IPF) 0 % N Automated [id number] 20:13:10 Test Item Value Reference Range Interpretation Comments Neutro Auto (test code = Neutro 62.8 % 36.0-70.0 Auto) Lymph Auto (test code = Lymph Auto) 22.9 % 12.0-44.0 Breathitt Auto (test code = Breathitt Auto) 11.0 % 0.0-11.0 Eos, Auto (test code = Eos, Auto) 2.3 % 0.0-7.0 Basophil Auto (test code = Basophil 0.6 % 0.0-2.0 Auto) Neutro Absolute (test code = Neutro 5.9 x10 1.6-7.4 Absolute) Lymph Absolute (test code = Lymph 2.15 x10 .50-4.60 Absolute) Bre[place]itt Absolute (test code = Breathitt 1.03 x10 .00-1.20 Absolute) Eos Absolute (test code = Eos 0.22 x10 0.00-0.74 Absolute) Baso Absolute (test code = Baso 0.06 x10 0.00-0.21 Absolute) IG [id number] 20:13:10 Test Item Value Reference Range Interpretation Comments IG (test code = IG) 0.4 % 0.0-5.0 IG Abs (test code = IG Abs) 0 x10 N
--- NOTE | 2020-02-22 13:32 | ER ---
Nurse's Notes [facility] Name: Darinel Jaeger III Age: 29 yrs Sex: Male : 1990 Arrival Date: 02/22/2020 Time: 12:43 Bed Waiting Private MD: Diagnosis: ED Course: 02/21 12:43 Patient arrived in ED. ag5 12:50 not in lobby when called to triage. ll1 13:23 not in lobby or restroom when called to triage. ll1 13:23 Chong Magdaleno MD is Attending Physician. kdr 13:32 still unable to locate for triage, left without being seen. ll1 Administered Medications: No medications were administered Outcome: 13:32 Patient left the ED. ll1 Signatures: Chong Magdaleno MD MD kdr Gaskin, [facility] Liane Hernandez, RN RN ll1
== END 2020-02-22 13:32 | disposition left against medical advice (07) ==
DX: Z02.9 Encounter for administrative examinations, unspecified (principal)

== ENCOUNTER 2020-02-22 | Emergency (ER) | payer SELFPAY ==
--- OUTSIDE RECORDS SUMMARY | 2020-02-22 10:11 | XMS REPORT | Continuity of Care Document ---
:1990 Author Organization [facility] t Address [address] [place] [address] Care Team Providers Name Role Phone Unavailable [...] = T4 Free) 1.060 ng/dL 0.930-1.700 RPR [id number] 19:40:08 Test Item Value Reference Range Interpretation Comments RPR Qual (test code = RPR Qual) Non-Reactive Non-Reactive Reactive Control (test code = Reactive Reactive Control) Weak Reactive Control (test Weak Reactive code = Weak Reactive Control) Non-Reactive Control (test code Non-Reactive = Non-Reactive Control) Lot # (test code = Lot #) [id number] Expiration Dt (test code = 10.31.20 N Expiration Dt) Hemoglobin [id number] 12:10:15 Test Item Value Reference Range Interpretation Comments Hemoglobin A1c (test code 5.2 % 4.8-5.9 No n Diabetic = Hemoglobin A1c) 4.8-5.9%Di abetic <7.0% Thyroid Stimulating [id number] 09:22:05 Test Item Value Reference Range Interpretation Comments TSH (test code = TSH) 6.780 mIU/mL 0.270-4.200 H Lipid [id number] 09:17:31 Test Item Value Reference Range Interpretation Comments Cholesterol Total 112 mg/dL 0-200 RISK OF HE ART (test code = DISEASEPublishe d by Cholesterol Total) [employer] Patti lyte Optimal Borderl [...] LDL/HDL Ratio=L DL Calc/HDL Chol Urine Drug [id number] 01:18:36 Test Item Value Reference Range Interpretation [...] confir matory test if desired . Alcohol [id number] 00:40:25 Test Item Value Reference Range Interpretation Comments Ethanol Level (test <0.00 g/dL 0.00-0.01 Intoxica carrie 0.080 g/dL code = Ethanol or more Level) Ethanol Inst (test <0 N code = Ethanol Inst) Comprehensive Metabolic [id number] 20:42:46 Test Item Value Reference Range Interpretation [...] A/G 2.2 ratio N Ratio) Comprehensive Metabolic [id number] 20:42:46 Test Item Value Reference Range Interpretation [...] National Kidney Foundation, http://nkdep.ni h.gov Comprehensive Metabolic [id number] 20:42:46 Test Item Value Reference Range Interpretation [...] Foundation, http://nkdep.ni h.gov Urinalysis with Culture, if [id number] 20:26:39 Test Item Value Reference Range Interpretation [...] GL_[id number]_[id number] _IN D Complete Blood Count with [id number] 20:13:10 Test Item Value Reference Range Interpretation [...] code = IPF) 0 % N Automated [id number] 20:13:10 Test Item Value Reference Range Interpretation Comments Neutro Auto (test code = Neutro 62.8 % 36.0-70.0 Auto) Lymph Auto (test code = Lymph Auto) 22.9 % 12.0-44.0 [place] Auto (test code = [place] Auto) 11.0 % 0.0-11.0 Eos, Auto (test code = Eos, Auto) 2.3 % 0.0-7.0 Basophil Auto (test code = Basophil 0.6 % 0.0-2.0 Auto) Neutro Absolute (test code = Neutro 5.9 x10 1.6-7.4 Absolute) Lymph Absolute (test code = Lymph 2.15 x10 .50-4.60 Absolute) [place] Absolute (test code = [place] 1.03 x10 .00-1.20 Absolute) Eos Absolute (test code = Eos 0.22 x10 0.00-0.74 Absolute) Baso Absolute (test code = Baso 0.06 x10 0.00-0.21 Absolute) IG [id number] 20:13:10 Test Item Value Reference Range Interpretation Comments IG (test code = IG) 0.4 % 0.0-5.0 IG Abs (test code = IG Abs) 0 x10 N
--- NOTE | 2020-02-22 10:33 | EDPHYS ---
Physician Documentation [facility] Name: Darinel Jaeger III Age: 29 yrs Sex: Male : 1990 Arrival Date: 02/22/2020 Time: 10:11 Bed 17 Private MD: ED Physician Chong Magdaleno HPI: 02/21 10:39 This 29 yrs old Male presents to ER via EMS with complaints of Psych Problem. kdr 10:39 The patient presents to the emergency department with psychosis, has experienced kdr auditory hallucinations. Historical: - Allergies: 10:12 No Known Allergies; ll1 - PMHx: 10:12 Anxiety; Bipolar disorder; Depression; Methamphetamine abuse - snort; Schizophrenia; ll1 - PSHx: 10:12 None; ll1 - Immunization history:: Flu vaccine is not up to date. - Social history:: Smoking status: Patient reports the use of cigarette tobacco products, smokes one pack cigarettes per day. ROS: 10:39 Constitutional: Negative for fever, chills, and weight loss, Eyes: Negative for injury, kdr pain, redness, and discharge, ENT: Negative for injury, pain, and discharge, Neck: Negative for injury, pain, and swelling, Cardiovascular: Negative for chest pain, palpitations, and edema, Respiratory: Negative for shortness of breath, cough, wheezing, and pleuritic chest pain, Abdomen/GI: Negative for abdominal pain, nausea, vomiting, diarrhea, and constipation, Back: Negative for injury and pain, : Negative for injury, bleeding, discharge, and swelling, MS/Extremity: Negative for injury and deformity, Skin: Negative for injury, rash, and discoloration, Neuro: Negative for headache, weakness, numbness, tingling, and seizure activity. Allergy/Immunology: Negative for hives, rash, and allergies, Endocrine: Negative for neck swelling, polydipsia, polyuria, polyphagia, and marked weight changes, Hematologic/Lymphatic: Negative for swollen nodes, abnormal bleeding, and unusual bruising. 10:39 Psych: Positive for anxiety, auditory hallucinations, Negative for homicidal ideation, suicide gesture, suicidal ideation. Exam: 10:39 Constitutional: This is a well developed, well nourished patient who is awake, alert, kdr and in no acute distress. Psych: Awake, alert, with orientation to person, place and time. Behavior, mood, and affect are within normal limits. 10:39 Psych: Behavior/mood is pleasant, cooperative, anxious, Affect is flat, Oriented to person, place, time, Patient has no thoughts/intents to harm self or others. Judgement / Insight is Delusions/hallucinations are present and described as ongoing auditory hallucinations that area unchanged. Vital Signs: 10:13 BP 131 / 73; Pulse 89; Resp 16; Temp 98.4; Pulse Ox 99% ; Pain 6/10; ll1 MDM: 10:32 Patient medically screened. kdr Administered Medications: No medications were administered Disposition: 10:28 Schizophrenia - chronic. kdr Disposition: 02/22/20 10:32 Discharged to Home. Impression: Schizophrenia, Anxiety disorder, unspecified. - Condition is Stable. - Discharge Instructions: Schizophrenia, Generalized Anxiety Disorder. - Medication Reconciliation Form, Thank You Letter form. - Follow up: Private Physician; When: 2 - 3 days; Reason: If symptoms return, Further diagnostic work-up, Recheck today's complaints, Continuance of care, Re-evaluation by your physician. - Problem is an ongoing problem. - Symptoms are unchanged. Signatures: Chong Magdaleno MD MD kdr Liane Hernandez RN RN ll1 Corrections: (The following items were deleted from the chart) 10:43 10:32 02/22/2020 10:32 Discharged to Home. Impression: Schizophrenia; Anxiety disorder, ll1 unspecified. Condition is Stable. Forms are Medication Reconciliation Form, Thank You Letter, Antibiotic Education, Prescription Opioid Use. Follow up: Private Physician; When: 2 - 3 days; Reason: If symptoms return, Further diagnostic work-up, Recheck today's complaints, Continuance of care, Re-evaluation by your physician. Problem is an ongoing problem. Symptoms are unchanged. kdr
--- NOTE | 2020-02-22 10:33 | ER ---
Nurse's Notes [facility] Name: Darinel Jaeger III Age: 29 yrs Sex: Male : 1990 Arrival Date: 02/22/2020 Time: 10:11 Bed 17 Private MD: Diagnosis: Schizophrenia;Anxiety disorder, unspecified Presentation: 02/21 10:13 Chief complaint: Patient states: Hearing voices still. 3-4 visits this week for the 1 same. Coronavirus screen: Client denies travel out of the [place] in the last 14 days. At this time, the client does not indicate any symptoms associated with coronavirus-19. Ebola Screen: Patient denies travel to an Ebola-affected area in the 21 days before illness onset. Initial Sepsis Screen: Does the patient meet any 2 criteria? No. Patient's initial sepsis screen is negative. Does the patient have a suspected source of infection? No. Patient's initial sepsis screen is negative. Risk Assessment: Do you want to hurt yourself or someone else? Patient reports no desire to harm self or others. Onset of symptoms is unknown. 10:13 Method Of Arrival: EMS [facility] 10:13 Acuity: KAVON 3 1 Triage Assessment: 10:18 General: Appears unkempt, Behavior is cooperative, appropriate for age, anxious, ll1 restless. Pain: Complains of pain in head Quality of pain is described as aching, Pain began 3 hours ago. Neuro: Level of Consciousness is awake, alert, obeys commands, Oriented to person, place, time, situation, Appropriate for age Transaction Manager are equal bilaterally Moves all extremities. Full function Gait is steady, Speech is normal, Facial symmetry appears normal, Reports headache. Cardiovascular: No deficits noted. Respiratory: No deficits noted. GI: No deficits noted. Historical: - Allergies: 10:12 No Known Allergies; ll1 - PMHx: 10:12 Anxiety; Bipolar disorder; Depression; Methamphetamine abuse - snort; Schizophrenia; ll1 - PSHx: 10:12 None; ll1 - Immunization history:: Flu vaccine is not up to date. - Social history:: Smoking status: Patient reports the use of cigarette tobacco products, smokes one pack cigarettes per day. Screenin:17 Abuse screen: Denies threats or abuse. Nutritional screening: No deficits noted. ll1 Tuberculosis screening: No symptoms or risk factors identified. Fall Risk None identified. Mental Status- Overestimates/Forgets Limitations (15 pts.). Total Eller Fall Scale indicates No Risk (0-24 pts). Assessment: 10:34 Reassessment: No changes from previously documented assessment. Patient and/or family ll1 updated on plan of care and expected duration. Pain level reassessed. eating sandwich and chips. Psych: 10:18 Suicide Risk Assessment: Sad Person Scale: Sex of patient: Male: Score 1 point. Age of ll1 patient: Score 1 point if patient 15-34. Depression: Score 0 point if signs of depression are not present. Substance Abuse: Score 1 point if patient abuses alcohol or drugs. Rational Thinking: Score 1 point if patient is lacking rational thinking. Social Support: Score 1 point if social support is lacking and/or unavailable. Organized Plan: Score 0 if patient did not have an organized plan in place. Relationship: Score 1 point if patient is , , , or for a single male. 10:19 Subjective: Patient's mood is elevated, Hallucinations are auditory, Having thoughts of ll1 denies SI/HI. Objective: Patient is restless, Speech is normal, Affect is appropriate. Safety Checks: Door is open. Pt denies substance abuse. Commitment:. 10:44 Interventions: Patient reassessed during use of restraints. Patient is physically safe. ll1 Vital Signs: 10:13 BP 131 / 73; Pulse 89; Resp 16; Temp 98.4; Pulse Ox 99% ; Pain 6/10; ll1 ED Course: 10:11 Patient arrived in ED. ll1 10:12 Arm band placed on Patient placed in an exam room, on a stretcher. ll1 10:13 Chong Magdaleno MD is Attending Physician. kdr 10:17 Triage completed. ll1 10:34 Liane Hernandez, NNEKA is Primary Nurse. ll1 10:34 Patient has correct armband on for positive identification. Bed in low position. Call ll1 light in reach. Side rails up X 1. Cardiac monitoring not applicable on this patient. 10:44 No provider procedures requiring assistance completed. Patient did not have IV access ll1 during this emergency room visit. Administered Medications: No medications were administered Outcome: 10:32 Discharge ordered by . kdr 10:43 Patient left the ED. ll1 10:44 Discharged to home ambulatory. ll1 10:44 Condition: stable 10:44 Discharge instructions given to patient, Instructed on discharge instructions, follow up and referral plans. Demonstrated understanding of instructions, follow-up care. Signatures: Chong Magdaleno MD MD kdr Lewis, Lynsay RN RN ll1
== END 2020-02-22 10:43 | disposition home or self-care (01) ==
CPT/HCPCS: 99284

== ENCOUNTER 2020-11-02 12:43 | Emergency (ER) | payer SELFPAY ==
--- OUTSIDE RECORDS SUMMARY | 2020-11-02 12:47 | XMS REPORT | Continuity of Care Document ---
:1990 Author Organization [facility] t Address [address] [place] [address] [address] [place] [address] Care Team Providers Name Role Phone Unavailable Unavailable Unavailable Problems This patient has no known problems. Allergies, Adverse Reactions, Alerts Allergy Allergy Status Severity Reaction(s) Onset Inactive Treating Comm ents Source Name Type Date Date Clinician No Known [facility]ie [facility]:00: s 00 No Known DA Active U 2019- [facility] Drug 03-22 Allergie 00:00: s 00 Medications This patient has no known medications. Vital Signs Vital Name Observation Time Observation Value Comments Source 02 Sat by Pulse Oximetry 2020-02-28 14:32:36 99 /min Body Mass Index 2020-02-28 14:32:36 24.1 Height 2020-02-28 14:32:36 168\S\66.14 Pulse Rate 2020-02-28 14:32:36 82 /min Respiratory Rate 2020-02-28 14:32:36 16 /min Temperature 2020-02-28 14:32:36 36.8\S\98.2 Weight 2020-02-28 14:32:36 21784\S\2398.629 Respiratory 2020-02-28 14:31:04 No respiratory distress /min 02 Sat by Pulse Oximetry 2020-02-28 14:31:04 100 /min Body Mass Index 2020-02-28 14:31:04 23.0 Height 2020-02-28 14:31:04 177.8\S\70 Pulse Rate 2020-02-28 14:31:04 63 /min Respiratory Rate 2020-02-28 14:31:04 17 /min Temperature 2020-02-28 14:31:04 36.9\S\98.4 Weight 2020-02-28 14:31:04 81006.779\S\2560 Weight Measurement Method 2020-02-28 14:31:04 Estimated by Staff 02 Sat by Pulse Oximetry 2020-02-27 10:50:50 99 /min Body Mass Index 2020-02-27 10:50:50 24.1 Height 2020-02-27 10:50:50 168\S\66.14 Pulse Rate 2020-02-27 10:50:50 82 /min Respiratory Rate 2020-02-27 10:50:50 16 /min Temperature 2020-02-27 10:50:50 36.8\S\98.2 Weight 2020-02-27 10:50:50 02397\S\2398.629 Respiratory 2020-02-26 10:30:15 No respiratory distress /min 02 Sat by Pulse Oximetry 2020-02-26 10:30:15 100 /min Body Mass Index 2020-02-26 10:30:15 23.0 Height 2020-02-26 10:30:15 177.8\S\70 Pulse Rate 2020-02-26 10:30:15 63 /min Respiratory Rate 2020-02-26 10:30:15 17 /min Temperature 2020-02-26 10:30:15 36.9\S\98.4 Weight 2020-02-26 10:30:15 83517.779\S\2560 Weight Measurement Method 2020-02-26 10:30:15 Estimated by Staff 02 Sat by Pulse Oximetry 2020-02-26 06:30:27 99 /min Body Mass Index 2020-02-26 06:30:27 24.1 Height 2020-02-26 06:30:27 168\S\66.14 Pulse Rate 2020-02-26 06:30:27 82 /min Respiratory Rate 2020-02-26 06:30:27 16 /min Temperature 2020-02-26 06:30:27 36.8\S\98.2 Weight 2020-02-26 06:30:27 96157\S\2398.629 02 Sat by Pulse Oximetry 2020-02-26 05:11:30 99 /min Body Mass Index 2020-02-26 05:11:30 24.1 Height 2020-02-26 05:11:30 168\S\66.14 Pulse Rate 2020-02-26 05:11:30 98 /min Respiratory Rate 2020-02-26 05:11:30 18 /min Temperature 2020-02-26 05:11:30 36.8\S\98.2 Weight 2020-02-26 05:11:30 67232\S\2398.629 02 Sat by Pulse Oximetry 2020-02-25 23:41:23 99 /min Body Mass Index 2020-02-25 23:41:23 24.1 Height 2020-02-25 23:41:23 168\S\66.14 Pulse Rate 2020-02-25 23:41:23 98 /min Respiratory Rate 2020-02-25 23:41:23 18 /min Temperature 2020-02-25 23:41:23 36.8\S\98.2 Weight 2020-02-25 23:41:23 28079\S\2398.629 02 Sat by Pulse Oximetry 2020-02-25 23:30:34 100 /min Body Mass Index 2020-02-25 23:30:34 23.0 Height 2020-02-25 23:30:34 177.8\S\70 Pulse Rate 2020-02-25 23:30:34 63 /min Respiratory Rate 2020-02-25 23:30:34 17 /min Temperature 2020-02-25 23:30:34 36.9\S\98.4 Weight 2020-02-25 23:30:34 27459.779\S\2560 Respiratory 2020-02-25 23:30:34 No respiratory distress /min Weight Measurement Method 2020-02-25 23:30:34 Estimated by Staff 02 Sat by Pulse Oximetry 2020-02-25 23:27:59 99 /min Body Mass Index 2020-02-25 23:27:59 24.1 Height 2020-02-25 23:27:59 168\S\66.14 Pulse Rate 2020-02-25 23:27:59 98 /min Respiratory Rate 2020-02-25 23:27:59 18 /min Temperature 2020-02-25 23:27:59 36.8\S\98.2 Weight 2020-02-25 23:27:59 69754\S\2398.629 02 Sat by Pulse Oximetry 2020-02-25 23:19:45 99 /min Body Mass Index 2020-02-25 23:19:45 24.1 Height 2020-02-25 23:19:45 168\S\66.14 Pulse Rate 2020-02-25 23:19:45 98 /min Respiratory Rate 2020-02-25 23:19:45 18 /min Temperature 2020-02-25 23:19:45 36.8\S\98.2 Weight 2020-02-25 23:19:45 00070\S\2398.629 02 Sat by Pulse Oximetry 2020-02-25 23:18:43 99 /min Body Mass Index 2020-02-25 23:18:43 24.1 Height 2020-02-25 23:18:43 168\S\66.14 Pulse Rate 2020-02-25 23:18:43 98 /min Respiratory Rate 2020-02-25 23:18:43 18 /min Temperature 2020-02-25 23:18:43 36.8\S\98.2 Weight 2020-02-25 23:18:43 63076\S\2398.629 WEIGHT 2020-02-25 23:16:00 68 kg HEIGHT 2020-02-25 23:16:00 168 cm Respiratory 2020-02-25 10:13:34 No respiratory distress /min 02 Sat by Pulse Oximetry 2020-02-25 10:13:34 100 /min Body Mass Index 2020-02-25 10:13:34 23.0 Height 2020-02-25 10:13:34 177.8\S\70 Pulse Rate 2020-02-25 10:13:34 63 /min Respiratory Rate 2020-02-25 10:13:34 17 /min Temperature 2020-02-25 10:13:34 36.9\S\98.4 Weight 2020-02-25 10:13:34 41542.779\S\2560 Weight Measurement Method 2020-02-25 10:13:34 Estimated by Staff Respiratory 2020-02-25 10:12:32 No respiratory distress /min 02 Sat by Pulse Oximetry 2020-02-25 10:12:32 100 /min Body Mass Index 2020-02-25 10:12:32 23.0 Height 2020-02-25 10:12:32 177.8\S\70 Pulse Rate 2020-02-25 10:12:32 63 /min Respiratory Rate 2020-02-25 10:12:32 17 /min Temperature 2020-02-25 10:12:32 36.9\S\98.4 Weight 2020-02-25 10:12:32 65025.779\S\2560 Weight Measurement Method 2020-02-25 10:12:32 Estimated by Staff Respiratory 2020-02-25 04:02:05 No respiratory distress /min 02 Sat by Pulse Oximetry 2020-02-25 04:02:05 98 /min Body Mass Index 2020-02-25 04:02:05 23.0 Height 2020-02-25 04:02:05 177.8\S\70 Pulse Rate 2020-02-25 04:02:05 81 /min Respiratory Rate 2020-02-25 04:02:05 18 /min Temperature 2020-02-25 04:02:05 36.4\S\97.6 Weight 2020-02-25 04:02:05 21770.779\S\2560 Weight Measurement Method 2020-02-25 04:02:05 Estimated by Staff Respiratory 2020-02-25 03:59:32 No respiratory distress /min 02 Sat by Pulse Oximetry 2020-02-25 03:59:32 98 /min Body Mass Index 2020-02-25 03:59:32 23.0 Height 2020-02-25 03:59:32 177.8\S\70 Pulse Rate 2020-02-25 03:59:32 81 /min Respiratory Rate 2020-02-25 03:59:32 18 /min Temperature 2020-02-25 03:59:32 36.4\S\97.6 Weight 2020-02-25 03:59:32 14326.779\S\2560 Weight Measurement Method 2020-02-25 03:59:32 Estimated by Staff Respiratory 2020-02-25 01:12:45 No respiratory distress /min 02 Sat by Pulse Oximetry 2020-02-25 01:12:45 98 /min Body Mass Index 2020-02-25 01:12:45 23.0 Height 2020-02-25 01:12:45 177.8\S\70 Pulse Rate 2020-02-25 01:12:45 81 /min Respiratory Rate 2020-02-25 01:12:45 18 /min Temperature 2020-02-25 01:12:45 36.4\S\97.6 Weight 2020-02-25 01:12:45 96285.779\S\2560 Weight Measurement Method 2020-02-25 01:12:45 Estimated by Staff Respiratory 2020-02-25 00:58:55 No respiratory distress /min 02 Sat by Pulse Oximetry 2020-02-25 00:58:55 98 /min Body Mass Index 2020-02-25 00:58:55 23.0 Height 2020-02-25 00:58:55 177.8\S\70 Pulse Rate 2020-02-25 00:58:55 81 /min Respiratory Rate 2020-02-25 00:58:55 18 /min Temperature 2020-02-25 00:58:55 36.4\S\97.6 Weight 2020-02-25 00:58:55 03123.779\S\2560 Weight Measurement Method 2020-02-25 00:58:55 Estimated by Staff Respiratory 2020-02-24 20:22:07 No respiratory distress /min 02 Sat by Pulse Oximetry 2020-02-24 20:22:07 98 /min Body Mass Index 2020-02-24 20:22:07 23.0 Height 2020-02-24 20:22:07 177.8\S\70 Pulse Rate 2020-02-24 20:22:07 86 /min Respiratory Rate 2020-02-24 20:22:07 18 /min Temperature 2020-02-24 20:22:07 36.4\S\97.6 Weight 2020-02-24 20:22:07 84775.779\S\2560 Weight Measurement Method 2020-02-24 20:22:07 Estimated by Staff 02 Sat by Pulse Oximetry 2020-02-24 19:37:06 98 /min Body Mass Index 2020-02-24 19:37:06 23.0 Height 2020-02-24 19:37:06 177.8\S\70 Pulse Rate 2020-02-24 19:37:06 86 /min Respiratory Rate 2020-02-24 19:37:06 18 /min Temperature 2020-02-24 19:37:06 36.4\S\97.6 Weight 2020-02-24 19:37:06 55427.779\S\2560 Weight Measurement Method 2020-02-24 19:37:06 Estimated by Staff 02 Sat by Pulse Oximetry 2020-02-24 19:25:22 98 /min Body Mass Index 2020-02-24 19:25:22 23.0 Height 2020-02-24 19:25:22 177.8\S\70 Pulse Rate 2020-02-24 19:25:22 86 /min Respiratory Rate 2020-02-24 19:25:22 18 /min Temperature 2020-02-24 19:25:22 36.4\S\97.6 Weight 2020-02-24 19:25:22 64563.779\S\2560 Weight Measurement Method 2020-02-24 19:25:22 Estimated by Staff WEIGHT 2020-02-24 19:20:00 72.028567 kg HEIGHT 2020-02-24 19:20:00 177.8 cm Procedures This patient has no known procedures. Results Test Description Test Time Test Comments Results Result Comments Source Thyroxine Free T4 2018-12-28 08:22:53 Test Item Value Reference Range Interpretation Comme nts T4 Free (test code = T4 Free) 1.060 ng/dL 0.930-1.700 RPR [id number] 19:40:08 Test Item Value Reference Range Interpretation Comments RPR Qual (test code = RPR Qual) Non-Reactive Non-Reactive Reactive Control (test code = Reactive Reactive Control) Weak Reactive Control (test Weak Reactive code = Weak Reactive Control) Non-Reactive Control (test code Non-Reactive = Non-Reactive Control) Lot # (test code = Lot #) [id number] N Expiration Dt (test code = 10.31.20 N Expiration Dt) Hemoglobin [id number] 12:10:15 Test Item Value Reference Range Interpretation Comments Hemoglobin A1c (test code 5.2 % 4.8-5.9 No n Diabetic = Hemoglobin A1c) 4.8-5.9%Di abetic <7.0% Thyroid Stimulating [id number] 09:22:05 Test Item Value Reference Range Interpretation Comments TSH (test code = TSH) 6.780 mIU/mL 0.270-4.200 H Lipid [id number] 09:17:31 Test Item Value Reference Range Interpretation Comments Cholesterol Total 112 mg/dL 0-200 RISK OF HE ART (test code = DISEASEPublishe d by Cholesterol Total) [place] [employer] Patti lyte Optimal Borderl ine [...] LDL/HDL Ratio=L DL Calc/HDL Chol Urine Drug [id number] 01:18:36 Test Item Value Reference Range Interpretation [...] confir matory test if desired . Alcohol [id number] 00:40:25 Test Item Value Reference Range Interpretation Comments Ethanol Level (test <0.00 g/dL 0.00-0.01 Intoxica carrie 0.080 g/dL code = Ethanol or more Level) Ethanol Inst (test <0 N code = Ethanol Inst) Comprehensive Metabolic [id number] 20:42:46 Test Item Value Reference Range Interpretation [...] A/G 2.2 ratio N Ratio) Comprehensive Metabolic [id number] 20:42:46 Test Item Value Reference Range Interpretation [...] National Kidney Foundation, http://nkdep.ni h.gov Comprehensive Metabolic [id number] 20:42:46 Test Item Value Reference Range Interpretation [...] Foundation, [email or web address] h.gov Urinalysis with Culture, if [id number] 20:26:39 Test Item Value Reference Range Interpretation [...] GL_SJM_UA_MICRO _IN D Complete Blood Count with [id number] 20:13:10 Test Item Value Reference Range Interpretation [...] code = IPF) 0 % N Automated [id number] 20:13:10 Test Item Value Reference Range Interpretation Comments Neutro Auto (test code = Neutro 62.8 % 36.0-70.0 Auto) Lymph Auto (test code = Lymph Auto) 22.9 % 12.0-44.0 Otero Auto (test code = Otero Auto) 11.0 % 0.0-11.0 Eos, Auto (test code = Eos, Auto) 2.3 % 0.0-7.0 Basophil Auto (test code = Basophil 0.6 % 0.0-2.0 Auto) Neutro Absolute (test code = Neutro 5.9 x10 1.6-7.4 Absolute) Lymph Absolute (test code = Lymph 2.15 x10 .50-4.60 Absolute) Otero Absolute (test code = Otero 1.03 x10 .00-1.20 Absolute) Eos Absolute (test code = Eos 0.22 x10 0.00-0.74 Absolute) Baso Absolute (test code = Baso 0.06 x10 0.00-0.21 Absolute) IG [id number] 20:13:10 Test Item Value Reference Range Interpretation Comments IG (test code = IG) 0.4 % 0.0-5.0 IG Abs (test code = IG Abs) 0 x10 N
--- NOTE | 2020-11-02 17:40 | ER ---
Nurse's Notes [facility] Name: Darinel Jaeger III Age: 30 yrs Sex: Male : 1990 Arrival Date: 11/02/2020 Time: 12:59 Bed Waiting Private MD: Diagnosis: Presentation: 11/02 13:27 Chief complaint: Patient states: "I did a little bit of meth yesterday and I just don't aa5 feel good". Pt c/o anxiety and feeling restless. Coronavirus screen: At this time, the client does not indicate any symptoms associated with coronavirus-19. Ebola Screen: Patient negative for fever greater than or equal to 101.5 degrees Fahrenheit, and additional compatible Ebola Virus Disease symptoms. Initial Sepsis Screen: Does the patient meet any 2 criteria? HR > 90 bpm. Does the patient have a suspected source of infection? No. Patient's initial sepsis screen is negative. Risk Assessment: Do you want to hurt yourself or someone else? Patient reports no desire to harm self or others. Onset of symptoms was November 02, 2020. 13:27 Acuity: KAVON 3 aa5 13:27 Method Of Arrival: Ambulatory aa5 Historical: - Allergies: 13:29 No Known Allergies; aa5 - PMHx: 13:29 Anxiety; Bipolar disorder; Depression; Schizophrenia; Methamphetamine abuse; aa5 - Immunization history:: Client reports having NOT received the Covid vaccine. - Social history:: Smoking status: Patient reports the use of cigarette tobacco products, smokes one pack cigarettes per day. Vital Signs: 13:27 BP 126 / 51; Pulse 92; Resp 18 S; Temp 98.3(TE); Pulse Ox 98% on R/A; Weight 81.65 kg aa5 (R); Height 5 ft. 10 in. (177.80 cm) (R); 13:27 Body Mass Index 25.83 (81.65 kg, 177.80 cm) aa5 ED Course: 12:59 Patient arrived in ED. aa5 13:27 Arm band placed on. aa5 13:29 Triage completed. aa5 16:21 Arash Crane MD is Attending Physician. sp3 Administered Medications: No medications were administered Outcome: 17:39 Patient left the ED. aa5 Signatures: Daniela Leonard RN RN aa5 Arash Crane MD MD sp3 Corrections: (The following items were deleted from the chart) 13: 13:27 Pulse 92bpm; Resp 18bpm; Spontaneous; Pulse Ox 98% RA; Temp 98.3F Temporal; 81.65 aa5 kg Reported; Height 5 ft. 10 in. Reported; BMI: 25.8; aa5 13: 13:29 PMHx: Methamphetamine abuse - snort; aa5 aa5
[2020-11-02 19:24] VITALS: BP 126/51; TEMP 98.3; O2SAT 98
== END 2020-11-02 17:39 | disposition left against medical advice (07) ==
LOC: ER 12:43
DX: Z53.21 Procedure and treatment not carried out due to patient leaving prior to being seen by health care provider (principal)
CPT/HCPCS: 99281

== ENCOUNTER 2020-11-03 23:24 | Emergency (ER) | payer SELFPAY ==
--- OUTSIDE RECORDS SUMMARY | 2020-11-03 23:28 | XMS REPORT | Continuity of Care Document ---
:1990 Author Organization [facility] t Address [address] [place] [address] Care Team Providers Name Role Phone Pcp, Does Not Have A Primary Care Physician Eliecer MIRELES G Attending Clinician Problems Condition Condition Condition Status Onset Resolution Last Treating Co mments Source Name Details Category Date Date Treatment Clinician Date No known No known Disease Unive rs active active ity of problems problems [facility] Allergies, Adverse Reactions, Alerts Allergy Allergy Status Severity Reaction(s) Onset Inactive Treating Comm ents Source Name Type Date Date Clinician No Known DA Active U 2019-02 [facility] 04-27 Allergie 00:00: s 00 No Known DA Active U 2019-02 [facility] 03-22 Allergie 00:00: s 00 Social History Social Habit Start Date Stop Date Quantity Comments Source Exposure to Not sure [facility] SARS-CoV-2 (event) Medica l Branch Sex Assigned At [birth year] [facility] 00:00:00 00:00:00 Medical Branch Smoking Status Start Date Stop Date Source Unknown if ever smoked [facility] Medications Ordered Filled Start Stop Current Ordering Indication Dosage Frequency Signature Comments Components Source Medication Medication Date Date Medication? Clinician (SIG) Name Name No known No [facility] medications [facility] Vital Signs Vital Name Observation Time Observation Value Comments Source Systolic blood 2020-11-02 22:47:00 153 mm[Hg] Univer sity of pressure [facility] Diastolic blood 2020-11-02 22:47:00 90 mm[Hg] Unive rsity of pressure [facility] Heart rate 2020-11-02 22:47:00 98 /min Univers[facility] ty [facility] Body temperature 2020-11-02 22:47:00 36.83 [facility] Respiratory rate 2020-11-02 22:47:00 18 /min [facility] Body weight 2020-11-02 22:47:00 81.647 kg Universi ty [facility] Oxygen saturation in 2020-11-02 22:47:00 99 /min [facility] Arterial blood by [facility] Pulse oximetry Branch 02 Sat by Pulse 2020-02-28 14:32:36 99 /min Oximetry Body Mass Index 2020-02-28 14:32:36 24.1 Height 2020-02-28 14:32:36 168\S\66.14 Pulse Rate 2020-02-28 14:32:36 82 /min Respiratory Rate 2020-02-28 14:32:36 16 /min Temperature 2020-02-28 14:32:36 36.8\S\98.2 Weight 2020-02-28 14:32:36 40019\S\2398.629 Respiratory 2020-02-28 14:31:04 No respiratory distress /min 02 Sat by Pulse 2020-02-28 14:31:04 100 /min Oximetry Body Mass Index 2020-02-28 14:31:04 23.0 Height 2020-02-28 14:31:04 177.8\S\70 Pulse Rate 2020-02-28 14:31:04 63 /min Respiratory Rate 2020-02-28 14:31:04 17 /min Temperature 2020-02-28 14:31:04 36.9\S\98.4 Weight 2020-02-28 14:31:04 97754.779\S\2560 Weight Measurement 2020-02-28 14:31:04 Estimated by Staff Method 02 Sat by Pulse 2020-02-27 10:50:50 99 /min Oximetry Body Mass Index 2020-02-27 10:50:50 24.1 Height 2020-02-27 10:50:50 168\S\66.14 Pulse Rate 2020-02-27 10:50:50 82 /min Respiratory Rate 2020-02-27 10:50:50 16 /min Temperature 2020-02-27 10:50:50 36.8\S\98.2 Weight 2020-02-27 10:50:50 47313\S\2398.629 Respiratory 2020-02-26 10:30:15 No respiratory distress /min 02 Sat by Pulse 2020-02-26 10:30:15 100 /min Oximetry Body Mass Index 2020-02-26 10:30:15 23.0 Height 2020-02-26 10:30:15 177.8\S\70 Pulse Rate 2020-02-26 10:30:15 63 /min Respiratory Rate 2020-02-26 10:30:15 17 /min Temperature 2020-02-26 10:30:15 36.9\S\98.4 Weight 2020-02-26 10:30:15 30847.779\S\2560 Weight Measurement 2020-02-26 10:30:15 Estimated by Staff Method 02 Sat by Pulse 2020-02-26 06:30:27 99 /min Oximetry Body Mass Index 2020-02-26 06:30:27 24.1 Height 2020-02-26 06:30:27 168\S\66.14 Pulse Rate 2020-02-26 06:30:27 82 /min Respiratory Rate 2020-02-26 06:30:27 16 /min Temperature 2020-02-26 06:30:27 36.8\S\98.2 Weight 2020-02-26 06:30:27 35212\S\2398.629 02 Sat by Pulse 2020-02-26 05:11:30 99 /min Oximetry Body Mass Index 2020-02-26 05:11:30 24.1 Height 2020-02-26 05:11:30 168\S\66.14 Pulse Rate 2020-02-26 05:11:30 98 /min Respiratory Rate 2020-02-26 05:11:30 18 /min Temperature 2020-02-26 05:11:30 36.8\S\98.2 Weight 2020-02-26 05:11:30 91039\S\2398.629 02 Sat by Pulse 2020-02-25 23:41:23 99 /min Oximetry Body Mass Index 2020-02-25 23:41:23 24.1 Height 2020-02-25 23:41:23 168\S\66.14 Pulse Rate 2020-02-25 23:41:23 98 /min Respiratory Rate 2020-02-25 23:41:23 18 /min Temperature 2020-02-25 23:41:23 36.8\S\98.2 Weight 2020-02-25 23:41:23 13526\S\2398.629 02 Sat by Pulse 2020-02-25 23:30:34 100 /min Oximetry Body Mass Index 2020-02-25 23:30:34 23.0 Height 2020-02-25 23:30:34 177.8\S\70 Pulse Rate 2020-02-25 23:30:34 63 /min Respiratory Rate 2020-02-25 23:30:34 17 /min Temperature 2020-02-25 23:30:34 36.9\S\98.4 Weight 2020-02-25 23:30:34 57058.779\S\2560 Respiratory 2020-02-25 23:30:34 No respiratory distress /min Weight Measurement 2020-02-25 23:30:34 Estimated by Staff Method 02 Sat by Pulse 2020-02-25 23:27:59 99 /min Oximetry Body Mass Index 2020-02-25 23:27:59 24.1 Height 2020-02-25 23:27:59 168\S\66.14 Pulse Rate 2020-02-25 23:27:59 98 /min Respiratory Rate 2020-02-25 23:27:59 18 /min Temperature 2020-02-25 23:27:59 36.8\S\98.2 Weight 2020-02-25 23:27:59 22024\S\2398.629 02 Sat by Pulse 2020-02-25 23:19:45 99 /min Oximetry Body Mass Index 2020-02-25 23:19:45 24.1 Height 2020-02-25 23:19:45 168\S\66.14 Pulse Rate 2020-02-25 23:19:45 98 /min Respiratory Rate 2020-02-25 23:19:45 18 /min Temperature 2020-02-25 23:19:45 36.8\S\98.2 Weight 2020-02-25 23:19:45 20538\S\2398.629 02 Sat by Pulse 2020-02-25 23:18:43 99 /min Oximetry Body Mass Index 2020-02-25 23:18:43 24.1 Height 2020-02-25 23:18:43 168\S\66.14 Pulse Rate 2020-02-25 23:18:43 98 /min Respiratory Rate 2020-02-25 23:18:43 18 /min Temperature 2020-02-25 23:18:43 36.8\S\98.2 Weight 2020-02-25 23:18:43 23657\S\2398.629 WEIGHT 2020-02-25 23:16:00 68 kg HEIGHT 2020-02-25 23:16:00 168 cm Respiratory 2020-02-25 10:13:34 No respiratory distress /min 02 Sat by Pulse 2020-02-25 10:13:34 100 /min Oximetry Body Mass Index 2020-02-25 10:13:34 23.0 Height 2020-02-25 10:13:34 177.8\S\70 Pulse Rate 2020-02-25 10:13:34 63 /min Respiratory Rate 2020-02-25 10:13:34 17 /min Temperature 2020-02-25 10:13:34 36.9\S\98.4 Weight 2020-02-25 10:13:34 10914.779\S\2560 Weight Measurement 2020-02-25 10:13:34 Estimated by Staff Method Respiratory 2020-02-25 10:12:32 No respiratory distress /min 02 Sat by Pulse 2020-02-25 10:12:32 100 /min Oximetry Body Mass Index 2020-02-25 10:12:32 23.0 Height 2020-02-25 10:12:32 177.8\S\70 Pulse Rate 2020-02-25 10:12:32 63 /min Respiratory Rate 2020-02-25 10:12:32 17 /min Temperature 2020-02-25 10:12:32 36.9\S\98.4 Weight 2020-02-25 10:12:32 35186.779\S\2560 Weight Measurement 2020-02-25 10:12:32 Estimated by Staff Method Respiratory 2020-02-25 04:02:05 No respiratory distress /min 02 Sat by Pulse 2020-02-25 04:02:05 98 /min Oximetry Body Mass Index 2020-02-25 04:02:05 23.0 Height 2020-02-25 04:02:05 177.8\S\70 Pulse Rate 2020-02-25 04:02:05 81 /min Respiratory Rate 2020-02-25 04:02:05 18 /min Temperature 2020-02-25 04:02:05 36.4\S\97.6 Weight 2020-02-25 04:02:05 12126.779\S\2560 Weight Measurement 2020-02-25 04:02:05 Estimated by Staff Method Respiratory 2020-02-25 03:59:32 No respiratory distress /min 02 Sat by Pulse 2020-02-25 03:59:32 98 /min Oximetry Body Mass Index 2020-02-25 03:59:32 23.0 Height 2020-02-25 03:59:32 177.8\S\70 Pulse Rate 2020-02-25 03:59:32 81 /min Respiratory Rate 2020-02-25 03:59:32 18 /min Temperature 2020-02-25 03:59:32 36.4\S\97.6 Weight 2020-02-25 03:59:32 38880.779\S\2560 Weight Measurement 2020-02-25 03:59:32 Estimated by Staff Method Respiratory 2020-02-25 01:12:45 No respiratory distress /min 02 Sat by Pulse 2020-02-25 01:12:45 98 /min Oximetry Body Mass Index 2020-02-25 01:12:45 23.0 Height 2020-02-25 01:12:45 177.8\S\70 Pulse Rate 2020-02-25 01:12:45 81 /min Respiratory Rate 2020-02-25 01:12:45 18 /min Temperature 2020-02-25 01:12:45 36.4\S\97.6 Weight 2020-02-25 01:12:45 40835.779\S\2560 Weight Measurement 2020-02-25 01:12:45 Estimated by Staff Method Respiratory 2020-02-25 00:58:55 No respiratory distress /min 02 Sat by Pulse 2020-02-25 00:58:55 98 /min Oximetry Body Mass Index 2020-02-25 00:58:55 23.0 Height 2020-02-25 00:58:55 177.8\S\70 Pulse Rate 2020-02-25 00:58:55 81 /min Respiratory Rate 2020-02-25 00:58:55 18 /min Temperature 2020-02-25 00:58:55 36.4\S\97.6 Weight 2020-02-25 00:58:55 04222.779\S\2560 Weight Measurement 2020-02-25 00:58:55 Estimated by Staff Method Respiratory 2020-02-24 20:22:07 No respiratory distress /min 02 Sat by Pulse 2020-02-24 20:22:07 98 /min Oximetry Body Mass Index 2020-02-24 20:22:07 23.0 Height 2020-02-24 20:22:07 177.8\S\70 Pulse Rate 2020-02-24 20:22:07 86 /min Respiratory Rate 2020-02-24 20:22:07 18 /min Temperature 2020-02-24 20:22:07 36.4\S\97.6 Weight 2020-02-24 20:22:07 66110.779\S\2560 Weight Measurement 2020-02-24 20:22:07 Estimated by Staff Method 02 Sat by Pulse 2020-02-24 19:37:06 98 /min Oximetry Body Mass Index 2020-02-24 19:37:06 23.0 Height 2020-02-24 19:37:06 177.8\S\70 Pulse Rate 2020-02-24 19:37:06 86 /min Respiratory Rate 2020-02-24 19:37:06 18 /min Temperature 2020-02-24 19:37:06 36.4\S\97.6 Weight 2020-02-24 19:37:06 23287.779\S\2560 Weight Measurement 2020-02-24 19:37:06 Estimated by Staff Method 02 Sat by Pulse 2020-02-24 19:25:22 98 /min Oximetry Body Mass Index 2020-02-24 19:25:22 23.0 Height 2020-02-24 19:25:22 177.8\S\70 Pulse Rate 2020-02-24 19:25:22 86 /min Respiratory Rate 2020-02-24 19:25:22 18 /min Temperature 2020-02-24 19:25:22 36.4\S\97.6 Weight 2020-02-24 19:25:22 17794.779\S\2560 Weight Measurement 2020-02-24 19:25:22 Estimated by Staff Method WEIGHT 2020-02-24 19:20:00 72.269508 kg HEIGHT 2020-02-24 19:20:00 177.8 cm Procedures Procedure Date / Time Performed Performing Clinician [facility] NOTICE OF PRIVACY 2020-11-02 22:40:25 Doctor Unassigned, No Univ [facility] PRACTICES Name Medical Branch CONSENT/REFUSAL FOR 2020-11-02 22:35:54 [facility] Medical Branch TREATMENT Encounters Start End Encounter Admission Attending Care Care Encounter Source Date/Time Date/Time Type Type Clinicians Facility Department ID 2020-11-02 2020-11-02 Emergency [facility], [facility] [id number] Univers 17:48:00 19:44:00 [id number] [id number] [facility] 084 Branch Results Test Description Test Time Test Comments Results Result Comments Source Thyroxine Free T4 2018-12-28 08:22:53 Test Item Value Reference Range Interpretation Comme nts T4 Free (test code = T4 Free) 1.060 ng/dL 0.930-1.700 RPR [id number] 19:40:08 Test Item Value Reference Range Interpretation Comments RPR Qual (test code = RPR Qual) Non-Reactive Non-Reactive Reactive Control (test code = Reactive Reactive Control) Weak Reactive Control (test Weak Reactive code = Weak Reactive Control) Non-Reactive Control (test code Non-Reactive = Non-Reactive Control) Lot # (test code = Lot #) [id number] Expiration Dt (test code = 10.31.20 N Expiration Dt) Hemoglobin [id number] 12:10:15 Test Item Value Reference Range Interpretation Comments Hemoglobin A1c (test code 5.2 % 4.8-5.9 No n Diabetic = Hemoglobin A1c) 4.8-5.9%Di abetic <7.0% Thyroid Stimulating [id number] 09:22:05 Test Item Value Reference Range Interpretation Comments TSH (test code = TSH) 6.780 mIU/mL 0.270-4.200 H Lipid [id number] 09:17:31 Test Item Value Reference Range Interpretation Comments Cholesterol Total 112 mg/dL 0-200 RISK OF HE ART (test code = DISEASEPublishe d by Cholesterol Total) [place] [employer] Patti lyte Optimal Borderl ine [...] LDL/HDL Ratio=L DL Calc/HDL Chol Urine Drug [id number] 01:18:36 Test Item Value Reference Range Interpretation [...] confir matory test if desired . Alcohol [id number] 00:40:25 Test Item Value Reference Range Interpretation Comments Ethanol Level (test <0.00 g/dL 0.00-0.01 Intoxica carrie 0.080 g/dL code = Ethanol or more Level) Ethanol Inst (test <0 N code = Ethanol Inst) Comprehensive Metabolic [id number] 20:42:46 Test Item Value Reference Range Interpretation [...] A/G 2.2 ratio N Ratio) Comprehensive Metabolic [id number] 20:42:46 Test Item Value Reference Range Interpretation [...] National Kidney Foundation, http://nkdep.ni h.gov Comprehensive Metabolic [id number] 20:42:46 Test Item Value Reference Range Interpretation [...] ag e have not been validated by [facility] MDRD study and should be interpreted wit [...] ag e have not been validated by [facility] MDRD study and should be interpreted wit h caution. eGFR R esult Interpretation: eGFR > or = 60 is in the Normal RangeeGF R < 60 may mean kid radha diseaseeGFR < 1 5 may mean kidney failure Rang es recommended by the National Kidney Foundation, http://nkdep.ni h.gov Urinalysis with Culture, if [id number] 20:26:39 Test Item Value Reference Range Interpretation [...] GL_SJM_UA_MICRO _IN D Complete Blood Count with [id number] 20:13:10 Test Item Value Reference Range Interpretation [...] code = IPF) 0 % N Automated [id number] 20:13:10 Test Item Value Reference Range Interpretation Comments Neutro Auto (test code = Neutro 62.8 % 36.0-70.0 Auto) Lymph Auto (test code = Lymph Auto) 22.9 % 12.0-44.0 Grand Auto (test code = Grand Auto) 11.0 % 0.0-11.0 Eos, Auto (test code = Eos, Auto) 2.3 % 0.0-7.0 Basophil Auto (test code = Basophil 0.6 % 0.0-2.0 Auto) Neutro Absolute (test code = Neutro 5.9 x10 1.6-7.4 Absolute) Lymph Absolute (test code = Lymph 2.15 x10 .50-4.60 Absolute) Grand Absolute (test code = Grand 1.03 x10 .00-1.20 Absolute) Eos Absolute (test code = Eos 0.22 x10 0.00-0.74 Absolute) Baso Absolute (test code = Baso 0.06 x10 0.00-0.21 Absolute) IG [id number] 20:13:10 Test Item Value Reference Range Interpretation Comments IG (test code = IG) 0.4 % 0.0-5.0 IG Abs (test code = IG Abs) 0 x10 N
[2020-11-03] MEDS ORDERED: WATER FOR INJ,STERILE 10 ML ONE (23:49)
[2020-11-03] MEDS ORDERED: ZIPRASIDONE MESYLA 20 MG/VIAL IM ONE (23:49)
[2020-11-04 00:07] LABS: Absolute Lymphocytes (CBC) 2.1 K/uL (0.7-4.9); Basophils % 0.7 % (0-1.3); Hematocrit 44.8 % (39.6-49.0); Lymphocytes % 23.5 % (15.3-44.8); RBC Red Blood Cell Count 4.71 M/uL (4.33-5.43)
[2020-11-04 00:12] LABS: Protime INR 1.07
[2020-11-04] MEDS ORDERED: NA CHLORIDE 0.9% 1,000 ML ONE (00:23)
[2020-11-04] MEDS ORDERED: LORazepam 2 MG/ML VIAL ONE (00:23)
[2020-11-04] MEDS ORDERED: DIPHENHYDRAMINE 50 MG/ML VIAL ONE (00:23)
[2020-11-04 00:56] LABS: ALT/SGPT 22 U/L (12-78); AST/SGOT 13 U/L (15-37); Albumin 4.1 g/dL (3.4-5.0); Alkaline Phosphatase 81 U/L (45-117); BUN Blood Urea Nitrogen 10 mg/dL (7-18); Bicarbonate 24 mmol/L (21-32); Bilirubin Direct 0.2 mg/dL (0-0.2); Bilirubin Total 0.4 mg/dL (0.2-1.0); Glucose Level 98 mg/dL (74-106); Potassium 3.9 mmol/L (3.5-5.1); Sodium Level 140 mmol/L (136-145)
[2020-11-04 01:44] LABS: Urine Blood Negative (Negative); Urine Glucose Negative (Negative); Urine Protein Negative (Negative); Urine pH 5.5 (5.0-7.0)
[2020-11-04 03:38] LABS: Barbiturates NEGATIVE (NEGATIVE); Benzodiazepines NEGATIVE (NEGATIVE); Cocaine NEGATIVE (NEGATIVE); METHAMPHETAM POSITIVE (NEGATIVE); Methadone NEGATIVE (NEGATIVE); Opiates NEGATIVE (NEGATIVE); Phencyclidine NEGATIVE (NEGATIVE); THC Cannibis POSITIVE (NEGATIVE)
--- NOTE | 2020-11-04 06:44 | ER ---
Nurse's Notes [facility] Name: Darinel Jaeger III Age: 30 yrs Sex: Male : 1990 Arrival Date: 11/03/2020 Time: 23:27 Bed 3 Private MD: Diagnosis: Altered mental status. Substance abuse Presentation: 11/03 23:57 Ebola Screen: Patient denies travel to an Ebola-affected area in the 21 days before ea illness onset. 23:57 Acuity: KAVON 3 ea 11/04 00:06 Chief complaint: EMS states: EMS reports pt states he is seeing demons that are telling ea him to do bad things. Coronavirus screen: At this time, the client does not indicate any symptoms associated with coronavirus-19. Initial Sepsis Screen: Does the patient meet any 2 criteria? No. Patient's initial sepsis screen is negative. Does the patient have a suspected source of infection? No. Patient's initial sepsis screen is negative. Risk Assessment: Do you want to hurt yourself or someone else? Patient reports no desire to harm self or others. Onset of symptoms was November 04, 2020. 00:06 Method Of Arrival: EMS: [facility] ea Historical: - Allergies: 00:05 No Known Drug Allergies; ea - Home Meds: 00:05 trazodone 50 mg Oral tab nightly [Active]; Risperdal 2 mg Oral tab once daily [Active]; ea propranolol 40 mg Oral tab 2 times per day [Active]; divalproex 250 mg Oral Tb24 take 2 tabs every morning and 3 tabs every evening. [Active]; - PMHx: 00:05 Schizophrenia; Methamphetamine abuse; Depression; Bipolar disorder; Anxiety; ea - Immunization history:: Adult Immunizations unknown. - Social history:: Smoking status: unknown. Screenin/06 23:56 Abuse screen: Denies threats or abuse. Nutritional screening: No deficits noted. ea Tuberculosis screening: No symptoms or risk factors identified. Fall Risk IV access (20 points). Assessment: 23:30 General: Appears in no apparent distress. uncomfortable, Behavior is cooperative, jb4 agitated, anxious, restless. Pain: Denies pain. Neuro: Level of Consciousness is awake, alert, obeys commands, Oriented to person, place, time, situation, Reports Auditory hallucinations.. Cardiovascular: Patient's skin is warm and dry. Respiratory: Airway is patent Respiratory effort is even, unlabored, Respiratory pattern is regular, symmetrical. GI: No signs and/or symptoms were reported involving the gastrointestinal system. : No signs and/or symptoms were reported regarding the genitourinary system. EENT: No signs and/or symptoms were reported regarding the EENT system. Derm: Skin is intact, Skin is pink, warm \T\ dry. Musculoskeletal: Circulation, motion, and sensation intact. Range of motion: intact in all extremities. 11/04 01:30 Reassessment: Pt is resting calmly in bed with eyes closed, respirations are even and jb4 unlabored with no s/s of pain or distress noted. 03:30 Reassessment: Patient appears in no apparent distress at this time. No changes from jb4 previously documented assessment. Patient and/or family updated on plan of care and expected duration. Pain level reassessed. 05:16 Reassessment: Patient appears in no apparent distress at this time. No changes from jb4 previously documented assessment. Patient and/or family updated on plan of care and expected duration. Pain level reassessed. 07:12 Reassessment: Patient appears in no apparent distress at this time. No changes from hb previously documented assessment. Patient and/or family updated on plan of care and expected duration. Pain level reassessed. Vital Signs: 11/03 23:38 BP 135 / 78; Pulse 83; Resp 19; Temp 98.0; Pulse Ox 99% ; ea ED Course: 23:27 Patient arrived in ED. jb4 23:28 Alvarado Medrano PA is PHCP. cp 23:28 Kaiser Smith MD is Attending Physician. cp 23:56 Inserted saline lock: 20 gauge in left antecubital area, using aseptic technique. ea 23:56 Patient has correct armband on for positive identification. Bed in low position. Call ea light in reach. Side rails up X2. optical glass silverer on. Pulse ox on. NIBP on. 23:57 Triage completed. ea 23:57 Patient placed in an exam room, on a stretcher, on pulse oximetry. ea 11/04 00:47 CT Head Brain wo Cont In Process Unspecified. EDMS 01:05 Liu Calle, NNEKA is Primary Nurse. jb4 Administered Medications: 11/03 23:35 Not Given (Other Intervention Used): Geodon (ziprasidone) 10 mg IM once jb4 23:38 Drug: Geodon (ziprasidone) 20 mg Route: IM; Site: left deltoid; ea 11/04 00:00 Drug: Ativan (LORazepam) 1 mg Route: IM; Site: right deltoid; ea 00:00 Drug: Benadryl (diphenhydrAMINE) 25 mg Route: IM; Site: left deltoid; ea 00:00 Drug: NS 0.9% 1000 ml Route: IV; Rate: 1 bolus; Site: left antecubital; ea Outcome: 06:43 Discharge ordered by MD. worrell 08:08 Patient left the ED. hb Signatures: Dispatcher [employer] EDMS Kaiser Smith MD MD pkl Page, Corey, PA PA cp Baxter, Heather, RN RN Liu Calle RN RN jb4 Yazmin Rowe RN RN ea
--- NOTE | 2020-11-04 06:44 | EDPHYS ---
Physician Documentation [facility] Name: Darinel Jaeger III Age: 30 yrs Sex: Male : 1990 Arrival Date: 11/03/2020 Time: 23:27 Bed 3 Private MD: ED Physician Kaiser Smith HPI: 11/03 23:35 This 30 yrs old Male presents to ER via Unassigned with complaints of Visual cp Hallucinations. 23:35 The patient presents to the emergency department with psychosis, has experienced visual cp hallucinations, a history of substance abuse, Type: methamphetamines. 23:35 Past psychiatric history: Prior diagnosis: bipolar disorder, schizophrenia. Associated cp signs and symptoms: Pertinent negatives: abdominal pain, chest pain, fever, headache, suicide ideation. Patient reports he is seeing the devil. Historical: - Allergies: 11/04 00:05 No Known Drug Allergies; ea - Home Meds: 00:05 trazodone 50 mg Oral tab nightly [Active]; Risperdal 2 mg Oral tab once daily [Active]; ea propranolol 40 mg Oral tab 2 times per day [Active]; divalproex 250 mg Oral Tb24 take 2 tabs every morning and 3 tabs every evening. [Active]; - PMHx: 00:05 Schizophrenia; Methamphetamine abuse; Depression; Bipolar disorder; Anxiety; ea - Immunization history:: Adult Immunizations unknown. - Social history:: Smoking status: unknown. ROS: 11/03 23:45 Constitutional: Negative for body aches, chills, fever, poor PO intake. cp 23:45 Cardiovascular: Negative for chest pain. cp 23:45 Respiratory: Negative for cough, shortness of breath. 23:45 Abdomen/GI: Negative for abdominal pain, nausea, vomiting, and diarrhea. 23:45 Back: Negative for pain at rest, pain with movement. 23:45 Psych: Positive for visual hallucinations, Negative for homicidal ideation, suicide gesture, suicidal ideation. 23:45 All other systems are negative. Exam: 23:37 ECG was reviewed by the Attending Physician. cp 23:50 Constitutional: The patient appears in no acute distress, alert, awake, cp non-diaphoretic, non-toxic, well developed, well nourished. 23:50 Head/Face: Normocephalic, atraumatic. cp 23:50 Chest/axilla: Inspection: normal. 23:50 Cardiovascular: Rate: normal. 23:50 Respiratory: the patient does not display signs of respiratory distress, Respirations: normal, no use of accessory muscles, no retractions, labored breathing, is not present. 23:50 Abdomen/GI: Exam negative for discomfort, distension, guarding, Inspection: abdomen appears normal. 23:50 Psych: Behavior/mood is aggressive, Affect is animated, Delusions/hallucinations are present and described as patient reports he is seeing the devil. Vital Signs: 23:38 BP 135 / 78; Pulse 83; Resp 19; Temp 98.0; Pulse Ox 99% ; ea MDM: 23:30 Patient medically screened. cp 23:45 Differential diagnosis: drug withdrawal. acute psychotic break, psychosis secondary to cp non-compliance. 11/04 03:15 Data reviewed: vital signs, nurses notes, lab test result(s), EKG, radiologic studies, cp CT scan. 03:15 Test interpretation: by ED physician or midlevel provider: ECG. 11/03 23:30 Order name: Acetaminophen 11/03 23:30 Order name: Basic Metabolic Panel 11/03 23:30 Order name: CBC with Diff; Complete Time: 03:09 11/04 03:09 Interpretation: Normal except: MCV 95.0. 11/03 23:30 Order name: ETOH Level; Complete Time: 03:09 11/03 23:30 Order name: Hepatic Function; Complete Time: 03:09 11/03 23:30 Order name: PT-INR; Complete Time: 03:09 11/03 23:30 Order name: Ptt, Activated; Complete Time: 03:09 11/03 23:30 Order name: Salicylate; Complete Time: 03:09 11/03 23:30 Order name: Urine Drug Screen; Complete Time: 06:40 cp 11/03 23:30 Order name: Acetaminophen Level; Complete Time: 03:09 EDNM 11/03 23:30 Order name: Basic Metabolic Panel; Complete Time: 03:09 EDNM 11/04 03:09 Interpretation: Normal except: CL 109. 11/03 23:43 Order name: CT Head Brain wo Cont; Complete Time: 16:42 cp 11/04 01:43 Order name: Urine Dipstick-Ancillary; Complete Time: 03:09 EDNM 11/03 23:30 Order name: EKG; Complete Time: 23:31 11/03 23:30 Order name: EKG - Nurse/Tech; Complete Time: 23:42 11/03 23:30 Order name: IV Saline Lock; Complete Time: 00:36 11/03 23:30 Order name: Labs collected and sent; Complete Time: 00:36 11/03 23:30 Order name: Suicide Screening ([place]); Complete Time: 01:06 11/03 23:30 Order name: Urine Dipstick-Ancillary (obtain specimen); Complete Time: 02:00 11/04 07:45 Order name: Diet Regular; Complete Time: 07:46 hb EC/06 23:37 Rate is 82 beats/min. Rhythm is regular. WV interval is normal. QRS interval is normal. cp QT interval is normal. T waves are Inverted in lead aVR. Interpreted by me. Reviewed by me. Administered Medications: 23:35 Not Given (Other Intervention Used): Geodon (ziprasidone) 10 mg IM once jb4 23:38 Drug: Geodon (ziprasidone) 20 mg Route: IM; Site: left deltoid; ea 11/04 00:00 Drug: Ativan (LORazepam) 1 mg Route: IM; Site: right deltoid; ea 00:00 Drug: Benadryl (diphenhydrAMINE) 25 mg Route: IM; Site: left deltoid; ea 00:00 Drug: NS 0.9% 1000 ml Route: IV; Rate: 1 bolus; Site: left antecubital; ea Disposition: 06:42 Co-signature as Attending Physician, Kaiser Smith MD. pkl Disposition Summary: 11/04/20 06:43 Discharge Ordered Location: Home pkl Problem: new pkl Symptoms: have improved pkl Condition: Stable pkl Diagnosis - Altered mental status. Substance abuse pkl Followup: pkl - With: Private Physician - When: 1 - 2 days - Reason: Re-evaluation by your physician Forms: - Medication Reconciliation Form pkl - Thank You Letter pkl - Antibiotic Education pkl - Prescription Opioid Use pkl Signatures: [facility] Kaiser Bruner MD MD pkl Alvarado Medrano PA PA cp Bryson, James RN RN jb4 Yazmin Rowe RN RN ea Corrections: (The following items were deleted from the chart) 02:11 11/03 23:30 Syed florez. ryann jb4
[2020-11-04 08:15] VITALS: BP 135/78; TEMP 98; O2SAT 99
--- NOTE | 2020-11-04 10:55 | EKG ---
Test Date: 2020-11-03 Test Time: 23:32:29 Glaucoma Specialist: MOHAN MEASUREMENT RESULTS: Intervals: Rate: 82 IN: 140 QRSD: 98 QT: 356 QTc: 415 [place]: P: 72 IN: 140 QRS: 57 T: 35 INTERPRETIVE STATEMENTS: Normal sinus rhythm Normal ECG Compared to ECG 02/21/2020 20:33:10 Sinus bradycardia no longer present Electronically Signed On 11-04-20 10:53:34 CDT by Fuad Holder
--- NOTE | 2020-11-04 12:05 | RAD REPORT ---
EXAM DESCRIPTION: CT - Head Brain Wo Cont - 11/04/2020 6:16 am CLINICAL HISTORY: MENTAL STATUS CHANGE COMPARISON: CT head January 19, 2020 TECHNIQUE: Multiple helical axial tomographic images were obtained of the head without intravenous c ontrast. This exam was performed according to our departmental dose-optimization program, which inclu jaimee automated exposure control, adjustment of the mA and/or kV according to patient size and/or use o f iterative reconstruction technique. FINDINGS: There is no acute intracranial hemorrhage. No mass. No midline shift. No ventriculomegaly. Rutherford-white matter differentiation is maintained. Paranasal sinuses are clear. Mastoid air cells and middle ear spaces are clear. Orbits and orbital co ntents are unremarkable. Osseous structures are unremarkable. Surrounding soft tissues are unremarkable. IMPRESSION: No acute intracranial process. Electronically signed by: Alexi Petersen MD 11/04/2020 1:10 AM CDT Due to temporary technical issues with the PACS/Fluency reporting system, reports are being signed by the in house radiologist without review as a courtesy to ensure prompt reporting. The interpreting r adiologist is fully responsible for the content of the report.
== END 2020-11-04 08:08 | disposition home or self-care (01) ==
LOC: ER 23:24
DX: R41.82 Altered mental status, unspecified (principal); F15.10 Other stimulant abuse, uncomplicated; F20.9 Schizophrenia, unspecified
CPT/HCPCS: 36415; 70450; 80048; 80076; 80307; 80320; 80329; 81003; 85025; 85610; 85730; 93005; 96372; 99284; J3486

== ENCOUNTER 2020-12-12 13:19 | Emergency (ER) | payer SELFPAY ==
[2020-12-12 14:32] LABS: Absolute Lymphocytes (CBC) 1.1 K/uL (0.7-4.9); Basophils % 0.6 % (0-1.3); Hematocrit 38.8 % (39.6-49.0); Lymphocytes % 16.7 % (15.3-44.8); MPV 9.2 fL (7.6-11.3); RBC Red Blood Cell Count 4.13 M/uL (4.33-5.43)
[2020-12-12 14:35] LABS: Urine Blood Negative (Negative); Urine Glucose Negative (Negative); Urine Protein 1+ (Negative); Urine Specific Gravity >=1.030 (1.005-1.030); Urine pH 5.5 (5.0-7.0)
[2020-12-12 14:40] LABS: Protime INR 1.06
[2020-12-12] MEDS ORDERED: IBUPROFEN 200 MG TAB PO ONE (14:52)
[2020-12-12] MEDS ORDERED: IBUPROFEN 400 MG TAB ONE (14:53)
[2020-12-12 14:58] LABS: ALT/SGPT 26 U/L (12-78); AST/SGOT 13 U/L (15-37); Albumin 3.6 g/dL (3.4-5.0); Alkaline Phosphatase 73 U/L (45-117); BUN Blood Urea Nitrogen 15 mg/dL (7-18); Bicarbonate 24 mmol/L (21-32); Bilirubin Direct 0.2 mg/dL (0-0.2); Bilirubin Total 0.9 mg/dL (0.2-1.0); Glucose Level 94 mg/dL (74-106); Potassium 3.9 mmol/L (3.5-5.1); Protein, Total 6.3 g/dL (6.4-8.2); Sodium Level 140 mmol/L (136-145)
[2020-12-12 14:58] LABS: Barbiturates NEGATIVE (NEGATIVE); Benzodiazepines NEGATIVE (NEGATIVE); Cocaine NEGATIVE (NEGATIVE); METHAMPHETAM POSITIVE (NEGATIVE); Methadone NEGATIVE (NEGATIVE); Opiates NEGATIVE (NEGATIVE); Phencyclidine NEGATIVE (NEGATIVE); THC Cannibis POSITIVE (NEGATIVE)
--- NOTE | 2020-12-12 16:09 | EDPHYS ---
Physician Documentation [facility] Name: Darinel Jaeger III Age: 30 yrs Sex: Male : 1990 Arrival Date: 12/12/2020 Time: 13:25 Bed 19 Private MD: ED Physician Chong Magdaleno HPI: 12/12 16:09 This 30 yrs old Male presents to ER via EMS with complaints of Altered mental kdr status, acting out. 16:09 Police were called to come evaluate the patient who is found to be acting out and kdr boisterous in front of the [employer]. He denies any specific problem or complaint. He has a known history of substance abuse and schizophrenia. He states that he has had a headache for about 8 years.. Onset: The symptoms/episode began/occurred at an unknown time. Severity of symptoms: At their worst the symptoms were mild moderate just prior to arrival, in the emergency department the symptoms are unchanged. The patient has experienced similar episodes in the past, chronically. The patient has not recently seen a physician. Historical: - Allergies: 13:44 No Known Allergies; jl7 - Home Meds: 13:44 divalproex 250 mg Oral Tb24 take 2 tabs every morning and 3 tabs every evening. jl7 [Active]; propranolol 40 mg Oral tab 2 times per day [Active]; Risperdal 2 mg Oral tab once daily [Active]; trazodone 50 mg Oral tab nightly [Active]; - PMHx: 13:44 Anxiety; Bipolar disorder; Depression; Methamphetamine abuse; Schizophrenia; jl7 - Immunization history:: Adult Immunizations not up to date. - Social history:: Smoking status: Patient reports the use of cigarette tobacco products, smokes one pack cigarettes per day. ROS: 16:09 Constitutional: Negative for fever, chills, and weight loss, Eyes: Negative for injury, kdr pain, redness, and discharge, ENT: Negative for injury, pain, and discharge, Neck: Negative for injury, pain, and swelling, Cardiovascular: Negative for chest pain, palpitations, and edema, Respiratory: Negative for shortness of breath, cough, wheezing, and pleuritic chest pain, Abdomen/GI: Negative for abdominal pain, nausea, vomiting, diarrhea, and constipation, Back: Negative for injury and pain, : Negative for injury, bleeding, discharge, and swelling, MS/Extremity: Negative for injury and deformity, Skin: Negative for injury, rash, and discoloration, Neuro: Negative for headache, weakness, numbness, tingling, and seizure activity. Allergy/Immunology: Negative for hives, rash, and allergies, Endocrine: Negative for neck swelling, polydipsia, polyuria, polyphagia, and marked weight changes, Hematologic/Lymphatic: Negative for swollen nodes, abnormal bleeding, and unusual bruising. 16:09 Psych: Positive for anxiety, Substance use: Methamphetamine, Negative for homicidal ideation, suicide gesture, suicidal ideation. Exam: 16:09 Constitutional: This is a well developed, well nourished patient who is awake, alert, kdr and in no acute distress. Head/Face: Normocephalic, atraumatic. Eyes: Pupils equal round and reactive to light, extra-ocular motions intact. Lids and lashes normal. Conjunctiva and sclera are non-icteric and not injected. Cornea within normal limits. Periorbital areas with no swelling, redness, or edema. Neck: Trachea midline, no thyromegaly or masses palpated, and no cervical lymphadenopathy. Supple, full range of motion without nuchal rigidity, or vertebral point tenderness. No Meningismus. Chest/axilla: Normal chest wall appearance and motion. Nontender with no deformity. No lesions are appreciated. Cardiovascular: Regular rate and rhythm with a normal S1 and S2. No gallops, murmurs, or rubs. Normal PMI, no JVD. No pulse deficits. Respiratory: Lungs have equal breath sounds bilaterally, clear to auscultation and percussion. No rales, rhonchi or wheezes noted. No increased work of breathing, no retractions or nasal flaring. Abdomen/GI: Soft, non-tender, with normal bowel sounds. No distension or tympany. No guarding or rebound. No evidence of tenderness throughout. Back: No spinal tenderness. No costovertebral tenderness. Full range of motion. Skin: Warm, dry with normal turgor. Normal color with no rashes, no lesions, and no evidence of cellulitis. MS/ Extremity: Pulses equal, no cyanosis. Neurovascular intact. Full, normal range of motion. Neuro: Awake and alert, GCS 15, oriented to person, place, time, and situation. Cranial nerves II-XII grossly intact. Motor strength 5/5 in all extremities. Sensory grossly intact. Cerebellar exam normal. Normal gait. 16:09 Psych: Behavior/mood is cooperative, Affect is calm, Oriented to person, place, Patient has no thoughts/intents to harm self or others. Delusions/hallucinations are not present. Vital Signs: 13:42 BP 136 / 81; Pulse 77; Resp 17; Temp 98.3; Pulse Ox 100% on R/A; Weight 77.11 kg; jl7 Height 5 ft. 10 in. (177.80 cm); Pain 10/10; 17:14 BP 108 / 69; Pulse 90; Resp 18; Pulse Ox 98% ; Pain 0/10; tc5 13:42 Body Mass Index 24.39 (77.11 kg, 177.80 cm) jl7 MDM: 16:09 Patient medically screened. kdr 16:09 Data reviewed: vital signs, nurses notes, lab test result(s). Counseling: I had a kdr detailed discussion with the patient and/or guardian regarding: the historical points, exam findings, and any diagnostic results supporting the discharge/admit diagnosis, lab results, the need for outpatient follow up. 12/12 13:58 Order name: Acetaminophen; Complete Time: 15:42 kdr 12/12 13:58 Order name: Basic Metabolic Panel; Complete Time: 15:42 kdr 12/12 13:58 Order name: CBC with Diff; Complete Time: 15:42 kdr 12/12 13:58 Order name: ETOH Level; Complete Time: 15:42 kdr 12/12 13:58 Order name: Hepatic Function; Complete Time: 15:42 kdr 12/12 13:58 Order name: PT-INR; Complete Time: 15:42 kdr 12/12 13:58 Order name: Ptt, Activated; Complete Time: 15:42 kdr 12/12 13:58 Order name: Salicylate; Complete Time: 15:42 kdr 12/12 13:58 Order name: Urine Drug Screen; Complete Time: 15:42 kdr 12/12 13:58 Order name: Labs collected and sent; Complete Time: 14:39 kdr 12/12 13:58 Order name: Suicide Screening ([place]); Complete Time: 14:39 kdr 12/12 13:58 Order name: Urine Dipstick-Ancillary (obtain specimen); Complete Time: 14:39 kdr 12/12 14:34 Order name: Urine Dipstick-Ancillary; Complete Time: 15:42 EDMS Administered Medications: 14:30 Drug: Ibuprofen 600 mg Route: PO; tc5 17:12 Follow up: Response: No adverse reaction; Pain is decreased tc5 Disposition Summary: 12/12/20 16:09 Discharge Ordered Location: Home kdr Problem: an ongoing problem kdr Symptoms: have improved kdr Condition: Stable kdr Diagnosis - Other psychoactive substance abuse, uncomplicated kdr - Schizophrenia, unspecified kdr Followup: kdr - With: Private Physician - When: 2 - 3 days - Reason: Re-evaluation by your physician Discharge Instructions: - Discharge Summary Sheet kdr - Finding Treatment for Addiction kdr - Substance Use Disorder kdr - Schizophrenia kdr Forms: - Medication Reconciliation Form kdr - Thank You Letter kdr Signatures: Dispatcher [employer] EDMS Chong Magdaleno MD MD kdr Leal, Jahala, RN RN jl7 Lidia Griggs RN RN tc5
--- NOTE | 2020-12-12 16:09 | ER ---
Nurse's Notes [facility] Name: Darinel Jaeger III Age: 30 yrs Sex: Male : 1990 Arrival Date: 12/12/2020 Time: 13:25 Bed 19 Private MD: Diagnosis: Other psychoactive substance abuse, uncomplicated;Schizophrenia, unspecified Presentation: 12/12 13:26 Chief complaint: EMS states: PD called for pt yelling outside at [employer], pt known psych jl7 pt, non-compliant with medications. Coronavirus screen: At this time, the client does not indicate any symptoms associated with coronavirus-19. Ebola Screen: No symptoms or risks identified at this time. Onset of symptoms is unknown. 13:26 Method Of Arrival: EMS: [facility] 13:42 Chief complaint: Patient states: My brain hurts x 6 years, auditory and visual jl7 hallucinations for years. Initial Sepsis Screen: Does the patient meet any 2 criteria? No. Patient's initial sepsis screen is negative. Does the patient have a suspected source of infection? No. Patient's initial sepsis screen is negative. Risk Assessment: Do you want to hurt yourself or someone else? Patient reports no desire to harm self or others. Care prior to arrival: Medication(s) given: Normal saline infusion, 1000 mL, IV initiated. 18 GA, in the right antecubital area. 13:42 Acuity: KAVON 3 jl7 Triage Assessment: 13:44 General: Appears in no apparent distress. uncomfortable, Behavior is cooperative. Pain: jl7 Complains of pain in "brain" Pain currently is 10 out of 10 on a pain scale. Historical: - Allergies: 13:44 No Known Allergies; jl7 - Home Meds: 13:44 divalproex 250 mg Oral Tb24 take 2 tabs every morning and 3 tabs every evening. jl7 [Active]; propranolol 40 mg Oral tab 2 times per day [Active]; Risperdal 2 mg Oral tab once daily [Active]; trazodone 50 mg Oral tab nightly [Active]; - PMHx: 13:44 Anxiety; Bipolar disorder; Depression; Methamphetamine abuse; Schizophrenia; jl7 - Immunization history:: Adult Immunizations not up to date. - Social history:: Smoking status: Patient reports the use of cigarette tobacco products, smokes one pack cigarettes per day. Screenin:58 Abuse screen: Denies threats or abuse. Denies injuries from another. Nutritional tc5 screening: No deficits noted. Tuberculosis screening: No symptoms or risk factors identified. Fall Risk None identified. Assessment: 13:56 General: Appears in no apparent distress. Behavior is calm, cooperative, flat. Pain: tc5 Complains of pain in face and scalp. 13:57 General: Pt reports "Brain pain 10/10 for the past 6 years.". tc5 15:35 General: pt sleeping, NAD, will cont to monitor.. tc5 Vital Signs: 13:42 BP 136 / 81; Pulse 77; Resp 17; Temp 98.3; Pulse Ox 100% on R/A; Weight 77.11 kg; jl7 Height 5 ft. 10 in. (177.80 cm); Pain 10/10; 17:14 BP 108 / 69; Pulse 90; Resp 18; Pulse Ox 98% ; Pain 0/10; tc5 13:42 Body Mass Index 24.39 (77.11 kg, 177.80 cm) jl7 ED Course: 13:25 Patient arrived in ED. jl7 13:44 Triage completed. jl7 13:44 Arm band placed on right wrist. jl7 13:56 Lidia Griggs, RN is Primary Nurse. tc5 13:57 Chong Magdaleno MD is Attending Physician. kdr 14:03 Patient is placed in psych hold. pt denies SI/HI, reports he lives at home with family tc5 and feels safe there, states he has had brain problems for 6 years and has not been taking his meds for it pt is cooperative and would like something to eat. 14:06 Patient has correct armband on for positive identification. Bed in low position. Call tc5 light in reach. 14:39 Acetaminophen Sent. tc5 14:39 Basic Metabolic Panel Sent. tc5 14:39 ETOH Level Sent. tc5 14:39 Hepatic Function Sent. tc5 14:39 PT-INR Sent. tc5 14:39 Ptt, Activated Sent. tc5 14:39 Salicylate Sent. tc5 14:40 Urine Drug Screen Sent. tc5 17:11 IV discontinued, intact, bleeding controlled, No redness/swelling at site. Pressure tc5 dressing applied, RAC, pt arrived with site. 17:13 No provider procedures requiring assistance completed. tc5 Administered Medications: 14:30 Drug: Ibuprofen 600 mg Route: PO; tc5 17:12 Follow up: Response: No adverse reaction; Pain is decreased tc5 Outcome: 16:09 Discharge ordered by . santino 17:13 Discharged to home ambulatory. tc5 17:13 Condition: stable 17:13 Discharge instructions given to patient, also gave pt food. 17:14 Patient left the ED. tc5 Signatures: Chong Magdaleno MD MD kdr Leal, Jahala, RN RN jl7 Lidia Griggs RN RN tc5
[2020-12-12 17:23] VITALS: TEMP 98.3
[2020-12-12 17:25] VITALS: BP 108/69; O2SAT 98
== END 2020-12-12 17:14 | disposition home or self-care (01) ==
LOC: ER 13:19
DX: F19.10 Other psychoactive substance abuse, uncomplicated (principal); F20.9 Schizophrenia, unspecified; F17.210 Nicotine dependence, cigarettes, uncomplicated
CPT/HCPCS: 36415; 80048; 80076; 80307; 80320; 80329; 81003; 85025; 85610; 85730; 99283

== ENCOUNTER 2021-08-13 17:12 | Emergency (ER) | payer SELFPAY ==
--- OUTSIDE RECORDS SUMMARY | 2021-08-13 17:16 | XMS REPORT | Continuity of Care Document ---
:1990 Author Organization [facility] t Address [address] [place] [address] Care Team Providers Name Role Phone Pcp, Does Not Have A Primary Care Physician Eliecer MIRELES G Attending Clinician Problems Condition Condition Condition Status Onset Resolution Last Treating Co mments Source Name Details Category Date Date Treatment Clinician Date No known No known Disease Unive rs active active ity of problems problems [facility] Allergies, Adverse Reactions, Alerts Allergy Allergy Status Severity Reaction(s) Onset Inactive Treating Comm ents Source Name Type Date Date Clinician No Known DA Active U 2019- [facility] Drug 2- Allergie 00:00: s 00 No Known DA Active U 2019-02 [facility] Drug 1 Allergie 00:00: s 00 NO KNOWN Drug Active Univers ALLERGIE Class ity of [facility] Social History Social Habit Start Date Stop Date Quantity Comments Source Exposure to Not sure [facility] SARS-CoV-2 (event) Medica l Branch Sex Assigned At [birth year] [facility] 00:00:00 00:00:00 Medical Branch Smoking Status Start Date Stop Date Source Unknown if ever smoked [facility] Medications Ordered Filled Start Stop Current Ordering Indication Dosage Frequency Signature Comments Components Source Medication Medication Date Date Medication? Clinician (SIG) Name Name No known No Univers medications [facility] Vital Signs Vital Name Observation Time Observation Value Comments Source Systolic blood 2020-11-02 22:47:00 153 mm[Hg] Univer sity of pressure [facility] Diastolic blood 2020-11-02 22:47:00 90 mm[Hg] Unive rsity of [facility] Heart rate 2020-11-02 22:47:00 98 /min Universi ty [facility] Body temperature 2020-11-02 22:47:00 36.83 [facility] Respiratory rate 2020-11-02 22:47:00 18 /min [facility] Body weight 2020-11-02 22:47:00 81.647 kg Universi ty [facility] Oxygen saturation in 2020-11-02 22:47:00 99 /min University Arterial blood by [facility] Pulse oximetry Branch 02 Sat by Pulse 2020-02-28 14:32:36 99 /min Oximetry Body Mass Index 2020-02-28 14:32:36 24.1 Height 2020-02-28 14:32:36 168\S\66.14 Pulse Rate 2020-02-28 14:32:36 82 /min Respiratory Rate 2020-02-28 14:32:36 16 /min Temperature 2020-02-28 14:32:36 36.8\S\98.2 Weight 2020-02-28 14:32:36 39912\S\2398.629 Respiratory 2020-02-28 14:31:04 No respiratory distress /min 02 Sat by Pulse 2020-02-28 14:31:04 100 /min Oximetry Body Mass Index 2020-02-28 14:31:04 23.0 Height 2020-02-28 14:31:04 177.8\S\70 Pulse Rate 2020-02-28 14:31:04 63 /min Respiratory Rate 2020-02-28 14:31:04 17 /min Temperature 2020-02-28 14:31:04 36.9\S\98.4 Weight 2020-02-28 14:31:04 39924.779\S\2560 Weight Measurement 2020-02-28 14:31:04 Estimated by Staff Method 02 Sat by Pulse 2020-02-27 10:50:50 99 /min Oximetry Body Mass Index 2020-02-27 10:50:50 24.1 Height 2020-02-27 10:50:50 168\S\66.14 Pulse Rate 2020-02-27 10:50:50 82 /min Respiratory Rate 2020-02-27 10:50:50 16 /min Temperature 2020-02-27 10:50:50 36.8\S\98.2 Weight 2020-02-27 10:50:50 15798\S\2398.629 Respiratory 2020-02-26 10:30:15 No respiratory distress /min 02 Sat by Pulse 2020-02-26 10:30:15 100 /min Oximetry Body Mass Index 2020-02-26 10:30:15 23.0 Height 2020-02-26 10:30:15 177.8\S\70 Pulse Rate 2020-02-26 10:30:15 63 /min Respiratory Rate 2020-02-26 10:30:15 17 /min Temperature 2020-02-26 10:30:15 36.9\S\98.4 Weight 2020-02-26 10:30:15 20255.779\S\2560 Weight Measurement 2020-02-26 10:30:15 Estimated by Staff Method 02 Sat by Pulse 2020-02-26 06:30:27 99 /min Oximetry Body Mass Index 2020-02-26 06:30:27 24.1 Height 2020-02-26 06:30:27 168\S\66.14 Pulse Rate 2020-02-26 06:30:27 82 /min Respiratory Rate 2020-02-26 06:30:27 16 /min Temperature 2020-02-26 06:30:27 36.8\S\98.2 Weight 2020-02-26 06:30:27 75809\S\2398.629 02 Sat by Pulse 2020-02-26 05:11:30 99 /min Oximetry Body Mass Index 2020-02-26 05:11:30 24.1 Height 2020-02-26 05:11:30 168\S\66.14 Pulse Rate 2020-02-26 05:11:30 98 /min Respiratory Rate 2020-02-26 05:11:30 18 /min Temperature 2020-02-26 05:11:30 36.8\S\98.2 Weight 2020-02-26 05:11:30 04724\S\2398.629 02 Sat by Pulse 2020-02-25 23:41:23 99 /min Oximetry Body Mass Index 2020-02-25 23:41:23 24.1 Height 2020-02-25 23:41:23 168\S\66.14 Pulse Rate 2020-02-25 23:41:23 98 /min Respiratory Rate 2020-02-25 23:41:23 18 /min Temperature 2020-02-25 23:41:23 36.8\S\98.2 Weight 2020-02-25 23:41:23 90581\S\2398.629 02 Sat by Pulse 2020-02-25 23:30:34 100 /min Oximetry Body Mass Index 2020-02-25 23:30:34 23.0 Height 2020-02-25 23:30:34 177.8\S\70 Pulse Rate 2020-02-25 23:30:34 63 /min Respiratory Rate 2020-02-25 23:30:34 17 /min Temperature 2020-02-25 23:30:34 36.9\S\98.4 Weight 2020-02-25 23:30:34 79504.779\S\2560 Respiratory 2020-02-25 23:30:34 No respiratory distress /min Weight Measurement 2020-02-25 23:30:34 Estimated by Staff Method 02 Sat by Pulse 2020-02-25 23:27:59 99 /min Oximetry Body Mass Index 2020-02-25 23:27:59 24.1 Height 2020-02-25 23:27:59 168\S\66.14 Pulse Rate 2020-02-25 23:27:59 98 /min Respiratory Rate 2020-02-25 23:27:59 18 /min Temperature 2020-02-25 23:27:59 36.8\S\98.2 Weight 2020-02-25 23:27:59 05423\S\2398.629 02 Sat by Pulse 2020-02-25 23:19:45 99 /min Oximetry Body Mass Index 2020-02-25 23:19:45 24.1 Height 2020-02-25 23:19:45 168\S\66.14 Pulse Rate 2020-02-25 23:19:45 98 /min Respiratory Rate 2020-02-25 23:19:45 18 /min Temperature 2020-02-25 23:19:45 36.8\S\98.2 Weight 2020-02-25 23:19:45 85899\S\2398.629 02 Sat by Pulse 2020-02-25 23:18:43 99 /min Oximetry Body Mass Index 2020-02-25 23:18:43 24.1 Height 2020-02-25 23:18:43 168\S\66.14 Pulse Rate 2020-02-25 23:18:43 98 /min Respiratory Rate 2020-02-25 23:18:43 18 /min Temperature 2020-02-25 23:18:43 36.8\S\98.2 Weight 2020-02-25 23:18:43 13488\S\2398.629 WEIGHT 2020-02-25 23:16:00 68 kg HEIGHT 2020-02-25 23:16:00 168 cm Respiratory 2020-02-25 10:13:34 No respiratory distress /min 02 Sat by Pulse 2020-02-25 10:13:34 100 /min Oximetry Body Mass Index 2020-02-25 10:13:34 23.0 Height 2020-02-25 10:13:34 177.8\S\70 Pulse Rate 2020-02-25 10:13:34 63 /min Respiratory Rate 2020-02-25 10:13:34 17 /min Temperature 2020-02-25 10:13:34 36.9\S\98.4 Weight 2020-02-25 10:13:34 02740.779\S\2560 Weight Measurement 2020-02-25 10:13:34 Estimated by Staff Method Respiratory 2020-02-25 10:12:32 No respiratory distress /min 02 Sat by Pulse 2020-02-25 10:12:32 100 /min Oximetry Body Mass Index 2020-02-25 10:12:32 23.0 Height 2020-02-25 10:12:32 177.8\S\70 Pulse Rate 2020-02-25 10:12:32 63 /min Respiratory Rate 2020-02-25 10:12:32 17 /min Temperature 2020-02-25 10:12:32 36.9\S\98.4 Weight 2020-02-25 10:12:32 36160.779\S\2560 Weight Measurement 2020-02-25 10:12:32 Estimated by Staff Method Respiratory 2020-02-25 04:02:05 No respiratory distress /min 02 Sat by Pulse 2020-02-25 04:02:05 98 /min Oximetry Body Mass Index 2020-02-25 04:02:05 23.0 Height 2020-02-25 04:02:05 177.8\S\70 Pulse Rate 2020-02-25 04:02:05 81 /min Respiratory Rate 2020-02-25 04:02:05 18 /min Temperature 2020-02-25 04:02:05 36.4\S\97.6 Weight 2020-02-25 04:02:05 90661.779\S\2560 Weight Measurement 2020-02-25 04:02:05 Estimated by Staff Method Respiratory 2020-02-25 03:59:32 No respiratory distress /min 02 Sat by Pulse 2020-02-25 03:59:32 98 /min Oximetry Body Mass Index 2020-02-25 03:59:32 23.0 Height 2020-02-25 03:59:32 177.8\S\70 Pulse Rate 2020-02-25 03:59:32 81 /min Respiratory Rate 2020-02-25 03:59:32 18 /min Temperature 2020-02-25 03:59:32 36.4\S\97.6 Weight 2020-02-25 03:59:32 18246.779\S\2560 Weight Measurement 2020-02-25 03:59:32 Estimated by Staff Method Respiratory 2020-02-25 01:12:45 No respiratory distress /min 02 Sat by Pulse 2020-02-25 01:12:45 98 /min Oximetry Body Mass Index 2020-02-25 01:12:45 23.0 Height 2020-02-25 01:12:45 177.8\S\70 Pulse Rate 2020-02-25 01:12:45 81 /min Respiratory Rate 2020-02-25 01:12:45 18 /min Temperature 2020-02-25 01:12:45 36.4\S\97.6 Weight 2020-02-25 01:12:45 57753.779\S\2560 Weight Measurement 2020-02-25 01:12:45 Estimated by Staff Method Respiratory 2020-02-25 00:58:55 No respiratory distress /min 02 Sat by Pulse 2020-02-25 00:58:55 98 /min Oximetry Body Mass Index 2020-02-25 00:58:55 23.0 Height 2020-02-25 00:58:55 177.8\S\70 Pulse Rate 2020-02-25 00:58:55 81 /min Respiratory Rate 2020-02-25 00:58:55 18 /min Temperature 2020-02-25 00:58:55 36.4\S\97.6 Weight 2020-02-25 00:58:55 22634.779\S\2560 Weight Measurement 2020-02-25 00:58:55 Estimated by Staff Method Respiratory 2020-02-24 20:22:07 No respiratory distress /min 02 Sat by Pulse 2020-02-24 20:22:07 98 /min Oximetry Body Mass Index 2020-02-24 20:22:07 23.0 Height 2020-02-24 20:22:07 177.8\S\70 Pulse Rate 2020-02-24 20:22:07 86 /min Respiratory Rate 2020-02-24 20:22:07 18 /min Temperature 2020-02-24 20:22:07 36.4\S\97.6 Weight 2020-02-24 20:22:07 81651.779\S\2560 Weight Measurement 2020-02-24 20:22:07 Estimated by Staff Method 02 Sat by Pulse 2020-02-24 19:37:06 98 /min Oximetry Body Mass Index 2020-02-24 19:37:06 23.0 Height 2020-02-24 19:37:06 177.8\S\70 Pulse Rate 2020-02-24 19:37:06 86 /min Respiratory Rate 2020-02-24 19:37:06 18 /min Temperature 2020-02-24 19:37:06 36.4\S\97.6 Weight 2020-02-24 19:37:06 16261.779\S\2560 Weight Measurement 2020-02-24 19:37:06 Estimated by Staff Method 02 Sat by Pulse 2020-02-24 19:25:22 98 /min Oximetry Body Mass Index 2020-02-24 19:25:22 23.0 Height 2020-02-24 19:25:22 177.8\S\70 Pulse Rate 2020-02-24 19:25:22 86 /min Respiratory Rate 2020-02-24 19:25:22 18 /min Temperature 2020-02-24 19:25:22 36.4\S\97.6 Weight 2020-02-24 19:25:22 98371.779\S\2560 Weight Measurement 2020-02-24 19:25:22 Estimated by Staff Method WEIGHT 2020-02-24 19:20:00 72.515006 kg HEIGHT 2020-02-24 19:20:00 177.8 cm Procedures Procedure Date / Time Performed Performing Clinician [facility] e NOTICE OF PRIVACY 2020-11-02 22:40:25 Doctor Unassigned, No Univ [facility] PRACTICES Name Medical Branch CONSENT/REFUSAL FOR 2020-11-02 22:35:54 [facility] Name Medical Branch TREATMENT Encounters Start End Encounter Admission Attending Care Care Encounter Source Date/Time Date/Time Type Type Clinicians Facility Department ID 2020-11-02 2020-11-02 Emergency Dre[place], [facility] [id number] Univers 17:48:00 19:44:00 [id number] [id number] [facility] 084 Branch 2020-11-02 2020-11-02 Emergency X [facility] ERT [id number] Univers 17:35:00 17:35:00 ity [facility] Results Test Description Test Time Test Comments Results Result Comments Source Thyroxine Free T4 2018-12-28 08:22:53 Test Item Value Reference Range Interpretation Comme nts T4 Free (test code = T4 Free) 1.060 ng/dL 0.930-1.700 RPR [id number] 19:40:08 Test Item Value Reference Range Interpretation Comments RPR Qual (test code = RPR Qual) Non-Reactive Non-Reactive Reactive Control (test code = Reactive Reactive Control) Weak Reactive Control (test Weak Reactive code = Weak Reactive Control) Non-Reactive Control (test code Non-Reactive = Non-Reactive Control) Lot # (test code = Lot #) [id number] Expiration Dt (test code = 10.31.20 N Expiration Dt) Hemoglobin [id number] 12:10:15 Test Item Value Reference Range Interpretation Comments Hemoglobin A1c (test code 5.2 % 4.8-5.9 No n Diabetic = Hemoglobin A1c) 4.8-5.9%Di abetic <7.0% Thyroid Stimulating [id number] 09:22:05 Test Item Value Reference Range Interpretation Comments TSH (test code = TSH) 6.780 mIU/mL 0.270-4.200 H Lipid [id number] 09:17:31 Test Item Value Reference Range Interpretation Comments Cholesterol Total 112 mg/dL 0-200 RISK OF HE ART (test code = DISEASEPublishe d by Cholesterol Total) [place] [employer] Patti lyte Optimal Borderl ine [...] being used code = LDL/HDL Ratio) in connie s calculation is LDL/HDL Ratio=L DL Calc/HDL Chol Urine Drug [id number] 01:18:36 Test Item Value Reference Range Interpretation [...] confir matory test if desired . Alcohol [id number] 00:40:25 Test Item Value Reference Range Interpretation Comments Ethanol Level (test <0.00 g/dL 0.00-0.01 Intoxica carrie 0.080 g/dL code = Ethanol or more Level) Ethanol Inst (test <0 N code = Ethanol Inst) Comprehensive Metabolic [id number] 20:42:46 Test Item Value Reference Range Interpretation [...] A/G 2.2 ratio N Ratio) Comprehensive Metabolic [id number] 20:42:46 Test Item Value Reference Range Interpretation [...] National Kidney Foundation, http://nkdep.ni h.gov Comprehensive Metabolic [id number] 20:42:46 Test Item Value Reference Range Interpretation [...] ag e have not been validated by [facility] MDRD study and should be interpreted [...] ag e have not been validated by [facility] MDRD study and should be interpreted wit h caution. eGFR R esult Interpretation: eGFR > or = 60 is in the Normal RangeeGF R < 60 may mean kid radha diseaseeGFR < 1 5 may mean kidney failure Rang es recommended by the National Kidney Foundation, http://nkdep.ni h.gov Urinalysis with Culture, if [id number] 20:26:39 Test Item Value Reference Range Interpretation [...] GL_SJM_UA_MICRO _IN D Complete Blood Count with [id number] 20:13:10 Test Item Value Reference Range Interpretation [...] code = IPF) 0 % N Automated [id number] 20:13:10 Test Item Value Reference Range Interpretation Comments Neutro Auto (test code = Neutro 62.8 % 36.0-70.0 Auto) Lymph Auto (test code = Lymph Auto) 22.9 % 12.0-44.0 Kleberg Auto (test code = Kleberg Auto) 11.0 % 0.0-11.0 Eos, Auto (test code = Eos, Auto) 2.3 % 0.0-7.0 Basophil Auto (test code = Basophil 0.6 % 0.0-2.0 Auto) Neutro Absolute (test code = Neutro 5.9 x10 1.6-7.4 Absolute) Lymph Absolute (test code = Lymph 2.15 x10 .50-4.60 Absolute) Kleberg Absolute (test code = Kleberg 1.03 x10 .00-1.20 Absolute) Eos Absolute (test code = Eos 0.22 x10 0.00-0.74 Absolute) Baso Absolute (test code = Baso 0.06 x10 0.00-0.21 Absolute) IG [id number] 20:13:10 Test Item Value Reference Range Interpretation Comments IG (test code = IG) 0.4 % 0.0-5.0 IG Abs (test code = IG Abs) 0 x10 N
--- NOTE | 2021-08-13 18:25 | ER ---
Nurse's Notes [facility] Name: Darinel Jaeger III Age: 30 yrs Sex: Male : 1990 Arrival Date: 08/13/2021 Time: 17:14 Bed 10 Private MD: Diagnosis: Cutaneous abscess of perineum;Allergic contact dermatitis due to plants, except food Presentation: 08/13 17:30 Chief complaint: Patient states: "I think I have like a spider bite or something in my aa5 groin". Pt also states "I also got into some poison sumac and I have a rash all over". Coronavirus screen: At this time, the client does not indicate any symptoms associated with coronavirus-19. Ebola Screen: No symptoms or risks identified at this time. Initial Sepsis Screen: Does the patient meet any 2 criteria? No. Patient's initial sepsis screen is negative. Does the patient have a suspected source of infection? No. Patient's initial sepsis screen is negative. Risk Assessment: Do you want to hurt yourself or someone else? Patient reports no desire to harm self or others. Onset of symptoms was July 2021. 17:30 Acuity: KAVON 3 aa5 17:30 Method Of Arrival: Ambulatory aa5 Historical: - Allergies: 17:25 No Known Allergies; aa5 - PMHx: 17:25 Anxiety; Bipolar disorder; Depression; Methamphetamine abuse; Schizophrenia; aa5 - Immunization history:: Adult Immunizations unknown. - Social history:: Smoking status: Patient reports the use of cigarette tobacco products, smokes one pack cigarettes per day. Assessment: 18:34 Reassessment: Patient is alert, oriented x 3, equal unlabored respirations, skin aa5 warm/dry/pink. Vital Signs: 17:30 BP 135 / 79; Pulse 83; Resp 18 S; Temp 98.4(O); Pulse Ox 99% on R/A; Weight 90.72 kg aa5 (R); Height 5 ft. 10 in. (177.80 cm) (R); 17:30 Body Mass Index 28.70 (90.72 kg, 177.80 cm) aa5 ED Course: 17:14 Patient arrived in ED. mr 17:18 Jennifer Crandall FNP-C [facility] kb 17:18 Brush, Josué, DO is Attending Physician. kb 17:25 Arm band placed on. aa5 17:32 Triage completed. aa5 18:34 No provider procedures requiring assistance completed. Patient did not have IV access aa5 during this emergency room visit. Administered Medications: No medications were administered Outcome: 18:25 Discharge ordered by . kb 18:34 Discharged to home ambulatory. aa5 18:34 Condition: stable 18:34 Discharge instructions given to patient, Instructed on discharge instructions, follow up and referral plans. medication usage, Demonstrated understanding of instructions, follow-up care, medications, Prescriptions given X 2. 18:34 Patient left the ED. aa5 Signatures: Jennifer Crandall, KATIEC ANJU-Denise Figueroa Audri, RN RN aa5
--- NOTE | 2021-08-13 18:25 | EDPHYS ---
Physician Documentation [facility] Name: Darinel Jaeger III Age: 30 yrs Sex: Male : 1990 Arrival Date: 08/13/2021 Time: 17:14 Bed 10 Private MD: ED Physician Josué Brush HPI: 08/13 18:21 This 30 yrs old Male presents to ER via Ambulatory with complaints of Insect Bite. kb 18:21 The patient presents with an abscess of the perineum. Description: erythematous, kb swollen, warm. Modifying factors: the symptoms are alleviated by nothing, the symptoms are aggravated by squeezing the lesion and expressing the contents, touching. The patient has not experienced similar symptoms in the past. The patient has not recently seen a physician. 18:22 Onset: The symptoms/episode began/occurred 2 day(s) ago. Possible cause(s): unknown. kb Associated signs and symptoms: Pertinent positives: drainage, erythema, swelling. Severity of symptoms: At their worst the symptoms were mild, in the emergency department the symptoms are unchanged. Pt reports he had an insect bite to peineum and he noticed it looked like it was draining so he came to get it looked at. Also reports he got into poison sumac and has a rash to upper extremities. Historical: - Allergies: 17:25 No Known Allergies; aa5 - PMHx: 17:25 Anxiety; Bipolar disorder; Depression; Methamphetamine abuse; Schizophrenia; aa5 - Immunization history:: Adult Immunizations unknown. - Social history:: Smoking status: Patient reports the use of cigarette tobacco products, smokes one pack cigarettes per day. ROS: 18:19 Constitutional: Negative for fever, chills, and weight loss. kb 18:19 Skin: Positive for abscess, of the perineum. 18:20 Skin: Positive for rash, of the right arm and left arm. kb 18:20 All other systems are negative. Exam: 18:20 Constitutional: This is a well developed, well nourished patient who is awake, alert, kb and in no acute distress. Head/Face: Normocephalic, atraumatic. ENT: Moist Mucous membranes Respiratory: Respirations even and unlabored. No increased work of breathing. Talking in full sentences MS/ Extremity: Pulses equal, no cyanosis. Neurovascular intact. Full, normal range of motion. Neuro: Awake and alert, GCS 15, oriented to person, place, time, and situation. Moves all extremities. Normal gait. Psych: Awake, alert, with orientation to person, place and time. Behavior, mood, and affect are within normal limits. 18:20 Skin: abscess, that is small, of the perineum, with drainage, that is purulent, with induration, consistent with contact dermatitis, on the right arm and left arm. Vital Signs: 17:30 BP 135 / 79; Pulse 83; Resp 18 S; Temp 98.4(O); Pulse Ox 99% on R/A; Weight 90.72 kg aa5 (R); Height 5 ft. 10 in. (177.80 cm) (R); 17:30 Body Mass Index 28.70 (90.72 kg, 177.80 cm) aa5 MDM: 17:38 Patient medically screened. kb 18:20 Data reviewed: vital signs, nurses notes. Data interpreted: Pulse oximetry: on room air kb is 99 %. Interpretation: normal. Counseling: I had a detailed discussion with the patient and/or guardian regarding: the historical points, exam findings, and any diagnostic results supporting the discharge/admit diagnosis, the need for outpatient follow up, a family practitioner, to return to the emergency department if symptoms worsen or persist or if there are any questions or concerns that arise at home. Administered Medications: No medications were administered Disposition: 19:56 Co-signature as Attending Physician, Josué Brush DO I was immediately available on-site ms3 in the Emergency Department for consultation in the care of the patient.. Disposition Summary: 08/13/21 18:25 Discharge Ordered Location: Home kb Condition: Stable kb Diagnosis - Cutaneous abscess of perineum kb - Allergic contact dermatitis due to plants, except food kb Followup: kb - With: Emergency Department - When: As needed - Reason: Worsening of condition Followup: kb - With: Private Physician - When: 2 - 3 days - Reason: Recheck today's complaints, Continuance of care, Re-evaluation by your physician Discharge Instructions: - Discharge Summary Sheet kb - Skin Abscess, [id number] kb - Poison Hermelinda Dermatitis, [id number] kb Forms: - Medication Reconciliation Form kb - Thank You Letter kb - Antibiotic Education kb - Prescription Opioid Use kb Prescriptions: - Prednisone 20 mg Oral Tablet - take 1 tablet by ORAL route once daily for 5 days; 5 tablet; Refills: 0, kb Product Selection Permitted - Doxycycline Hyclate 100 mg Oral Tablet - take 1 tablet by ORAL route every 12 hours; 20 tablet; Refills: 0, Product kb Selection Permitted Signatures: Jennifer Crandall, DEBORAH RENE-Daniela Rebolledo, RN RN aa5 Josué Brush DO DO ms3
[2021-08-13 18:48] VITALS: BP 135/79; TEMP 98.4; O2SAT 99
== END 2021-08-13 18:34 | disposition home or self-care (01) ==
LOC: ER 17:12
DX: L02.215 Cutaneous abscess of perineum (principal); L23.7 Allergic contact dermatitis due to plants, except food; F20.9 Schizophrenia, unspecified; F17.210 Nicotine dependence, cigarettes, uncomplicated
CPT/HCPCS: 99282

== ENCOUNTER 2021-10-29 11:19 | Emergency (ER) | payer SELFPAY ==
--- OUTSIDE RECORDS SUMMARY | 2021-10-29 11:23 | XMS REPORT | Continuity of Care Document ---
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 Attending Clinician Payers Payer Name Policy Type Policy Number Effective Date Expiration Date S ource Problems Condition Condition Condition Status Onset Resolution Last Treating Co mments Source Name Details Category Date Date Treatment Clinician Date No known No known Disease Unive rs active active ity of problems problems [facility] Allergies, Adverse Reactions, Alerts Allergy Allergy Status Severity Reaction(s) Onset Inactive Treating Comm ents Source Name Type Date Date Clinician No Known DA Active U 2019-02 [facility] Drug - Allergie 00:00: s 00 No Known DA Active U 2019-02 [facility] Drug - Allergie 00:00: s 00 NO KNOWN Drug Active Univers ALLERGIE Class ity of [facility] Social History Social Habit Start Date Stop Date Quantity Comments Source Exposure to Not sure [facility] SARS-CoV-2 (event) Medica l Branch Sex Assigned At [birth year] [facility] 00:00:00 00:00:00 [facility] Smoking Status Start Date Stop Date Source Unknown if ever smoked [facility] Medications Ordered Filled Start Stop Current Ordering Indication Dosage Frequency Signature Comments Components Source Medication Medication Date Date Medication? Clinician (SIG) Name Name No known No Univers medications [facility] Vital Signs Vital Name Observation Time Observation Value Comments Source Systolic blood 2020-11-02 22:47:00 153 mm[Hg] Univer sity of pressure [facility] Diastolic blood 2020-11-02 22:47:00 90 mm[Hg] Unive rsity of pressure [facility] Heart rate 2020-11-02 22:47:00 98 /min Universi ty of [facility] Body temperature 2020-11-02 22:47:00 36.83 Rachel [facility] Respiratory rate 2020-11-02 22:47:00 18 /min [facility] Body weight 2020-11-02 22:47:00 81.647 kg Universi ty [facility] Oxygen saturation in 2020-11-02 22:47:00 99 /min University Arterial blood by [facility] Pulse oximetry Branch 02 Sat by Pulse 2020-02-28 14:32:36 99 /min Oximetry Body Mass Index 2020-02-28 14:32:36 24.1 Height 2020-02-28 14:32:36 168\S\66.14 Pulse Rate 2020-02-28 14:32:36 82 /min Respiratory Rate 2020-02-28 14:32:36 16 /min Temperature 2020-02-28 14:32:36 36.8\S\98.2 Weight 2020-02-28 14:32:36 42515\S\2398.629 Respiratory 2020-02-28 14:31:04 No respiratory distress /min 02 Sat by Pulse 2020-02-28 14:31:04 100 /min Oximetry Body Mass Index 2020-02-28 14:31:04 23.0 Height 2020-02-28 14:31:04 177.8\S\70 Pulse Rate 2020-02-28 14:31:04 63 /min Respiratory Rate 2020-02-28 14:31:04 17 /min Temperature 2020-02-28 14:31:04 36.9\S\98.4 Weight 2020-02-28 14:31:04 45505.779\S\2560 Weight Measurement 2020-02-28 14:31:04 Estimated by Staff Method 02 Sat by Pulse 2020-02-27 10:50:50 99 /min Oximetry Body Mass Index 2020-02-27 10:50:50 24.1 Height 2020-02-27 10:50:50 168\S\66.14 Pulse Rate 2020-02-27 10:50:50 82 /min Respiratory Rate 2020-02-27 10:50:50 16 /min Temperature 2020-02-27 10:50:50 36.8\S\98.2 Weight 2020-02-27 10:50:50 27642\S\2398.629 Respiratory 2020-02-26 10:30:15 No respiratory distress /min 02 Sat by Pulse 2020-02-26 10:30:15 100 /min Oximetry Body Mass Index 2020-02-26 10:30:15 23.0 Height 2020-02-26 10:30:15 177.8\S\70 Pulse Rate 2020-02-26 10:30:15 63 /min Respiratory Rate 2020-02-26 10:30:15 17 /min Temperature 2020-02-26 10:30:15 36.9\S\98.4 Weight 2020-02-26 10:30:15 82826.779\S\2560 Weight Measurement 2020-02-26 10:30:15 Estimated by Staff Method 02 Sat by Pulse 2020-02-26 06:30:27 99 /min Oximetry Body Mass Index 2020-02-26 06:30:27 24.1 Height 2020-02-26 06:30:27 168\S\66.14 Pulse Rate 2020-02-26 06:30:27 82 /min Respiratory Rate 2020-02-26 06:30:27 16 /min Temperature 2020-02-26 06:30:27 36.8\S\98.2 Weight 2020-02-26 06:30:27 80409\S\2398.629 02 Sat by Pulse 2020-02-26 05:11:30 99 /min Oximetry Body Mass Index 2020-02-26 05:11:30 24.1 Height 2020-02-26 05:11:30 168\S\66.14 Pulse Rate 2020-02-26 05:11:30 98 /min Respiratory Rate 2020-02-26 05:11:30 18 /min Temperature 2020-02-26 05:11:30 36.8\S\98.2 Weight 2020-02-26 05:11:30 74938\S\2398.629 02 Sat by Pulse 2020-02-25 23:41:23 99 /min Oximetry Body Mass Index 2020-02-25 23:41:23 24.1 Height 2020-02-25 23:41:23 168\S\66.14 Pulse Rate 2020-02-25 23:41:23 98 /min Respiratory Rate 2020-02-25 23:41:23 18 /min Temperature 2020-02-25 23:41:23 36.8\S\98.2 Weight 2020-02-25 23:41:23 13916\S\2398.629 02 Sat by Pulse 2020-02-25 23:30:34 100 /min Oximetry Body Mass Index 2020-02-25 23:30:34 23.0 Height 2020-02-25 23:30:34 177.8\S\70 Pulse Rate 2020-02-25 23:30:34 63 /min Respiratory Rate 2020-02-25 23:30:34 17 /min Temperature 2020-02-25 23:30:34 36.9\S\98.4 Weight 2020-02-25 23:30:34 45550.779\S\2560 Respiratory 2020-02-25 23:30:34 No respiratory distress /min Weight Measurement 2020-02-25 23:30:34 Estimated by Staff Method 02 Sat by Pulse 2020-02-25 23:27:59 99 /min Oximetry Body Mass Index 2020-02-25 23:27:59 24.1 Height 2020-02-25 23:27:59 168\S\66.14 Pulse Rate 2020-02-25 23:27:59 98 /min Respiratory Rate 2020-02-25 23:27:59 18 /min Temperature 2020-02-25 23:27:59 36.8\S\98.2 Weight 2020-02-25 23:27:59 94168\S\2398.629 02 Sat by Pulse 2020-02-25 23:19:45 99 /min Oximetry Body Mass Index 2020-02-25 23:19:45 24.1 Height 2020-02-25 23:19:45 168\S\66.14 Pulse Rate 2020-02-25 23:19:45 98 /min Respiratory Rate 2020-02-25 23:19:45 18 /min Temperature 2020-02-25 23:19:45 36.8\S\98.2 Weight 2020-02-25 23:19:45 69545\S\2398.629 02 Sat by Pulse 2020-02-25 23:18:43 99 /min Oximetry Body Mass Index 2020-02-25 23:18:43 24.1 Height 2020-02-25 23:18:43 168\S\66.14 Pulse Rate 2020-02-25 23:18:43 98 /min Respiratory Rate 2020-02-25 23:18:43 18 /min Temperature 2020-02-25 23:18:43 36.8\S\98.2 Weight 2020-02-25 23:18:43 10485\S\2398.629 WEIGHT 2020-02-25 23:16:00 68 kg HEIGHT 2020-02-25 23:16:00 168 cm Respiratory 2020-02-25 10:13:34 No respiratory distress /min 02 Sat by Pulse 2020-02-25 10:13:34 100 /min Oximetry Body Mass Index 2020-02-25 10:13:34 23.0 Height 2020-02-25 10:13:34 177.8\S\70 Pulse Rate 2020-02-25 10:13:34 63 /min Respiratory Rate 2020-02-25 10:13:34 17 /min Temperature 2020-02-25 10:13:34 36.9\S\98.4 Weight 2020-02-25 10:13:34 14844.779\S\2560 Weight Measurement 2020-02-25 10:13:34 Estimated by Staff Method Respiratory 2020-02-25 10:12:32 No respiratory distress /min 02 Sat by Pulse 2020-02-25 10:12:32 100 /min Oximetry Body Mass Index 2020-02-25 10:12:32 23.0 Height 2020-02-25 10:12:32 177.8\S\70 Pulse Rate 2020-02-25 10:12:32 63 /min Respiratory Rate 2020-02-25 10:12:32 17 /min Temperature 2020-02-25 10:12:32 36.9\S\98.4 Weight 2020-02-25 10:12:32 29651.779\S\2560 Weight Measurement 2020-02-25 10:12:32 Estimated by Staff Method Respiratory 2020-02-25 04:02:05 No respiratory distress /min 02 Sat by Pulse 2020-02-25 04:02:05 98 /min Oximetry Body Mass Index 2020-02-25 04:02:05 23.0 Height 2020-02-25 04:02:05 177.8\S\70 Pulse Rate 2020-02-25 04:02:05 81 /min Respiratory Rate 2020-02-25 04:02:05 18 /min Temperature 2020-02-25 04:02:05 36.4\S\97.6 Weight 2020-02-25 04:02:05 13080.779\S\2560 Weight Measurement 2020-02-25 04:02:05 Estimated by Staff Method Respiratory 2020-02-25 03:59:32 No respiratory distress /min 02 Sat by Pulse 2020-02-25 03:59:32 98 /min Oximetry Body Mass Index 2020-02-25 03:59:32 23.0 Height 2020-02-25 03:59:32 177.8\S\70 Pulse Rate 2020-02-25 03:59:32 81 /min Respiratory Rate 2020-02-25 03:59:32 18 /min Temperature 2020-02-25 03:59:32 36.4\S\97.6 Weight 2020-02-25 03:59:32 89554.779\S\2560 Weight Measurement 2020-02-25 03:59:32 Estimated by Staff Method Respiratory 2020-02-25 01:12:45 No respiratory distress /min 02 Sat by Pulse 2020-02-25 01:12:45 98 /min Oximetry Body Mass Index 2020-02-25 01:12:45 23.0 Height 2020-02-25 01:12:45 177.8\S\70 Pulse Rate 2020-02-25 01:12:45 81 /min Respiratory Rate 2020-02-25 01:12:45 18 /min Temperature 2020-02-25 01:12:45 36.4\S\97.6 Weight 2020-02-25 01:12:45 70649.779\S\2560 Weight Measurement 2020-02-25 01:12:45 Estimated by Staff Method Respiratory 2020-02-25 00:58:55 No respiratory distress /min 02 Sat by Pulse 2020-02-25 00:58:55 98 /min Oximetry Body Mass Index 2020-02-25 00:58:55 23.0 Height 2020-02-25 00:58:55 177.8\S\70 Pulse Rate 2020-02-25 00:58:55 81 /min Respiratory Rate 2020-02-25 00:58:55 18 /min Temperature 2020-02-25 00:58:55 36.4\S\97.6 Weight 2020-02-25 00:58:55 03043.779\S\2560 Weight Measurement 2020-02-25 00:58:55 Estimated by Staff Method Respiratory 2020-02-24 20:22:07 No respiratory distress /min 02 Sat by Pulse 2020-02-24 20:22:07 98 /min Oximetry Body Mass Index 2020-02-24 20:22:07 23.0 Height 2020-02-24 20:22:07 177.8\S\70 Pulse Rate 2020-02-24 20:22:07 86 /min Respiratory Rate 2020-02-24 20:22:07 18 /min Temperature 2020-02-24 20:22:07 36.4\S\97.6 Weight 2020-02-24 20:22:07 61548.779\S\2560 Weight Measurement 2020-02-24 20:22:07 Estimated by Staff Method 02 Sat by Pulse 2020-02-24 19:37:06 98 /min Oximetry Body Mass Index 2020-02-24 19:37:06 23.0 Height 2020-02-24 19:37:06 177.8\S\70 Pulse Rate 2020-02-24 19:37:06 86 /min Respiratory Rate 2020-02-24 19:37:06 18 /min Temperature 2020-02-24 19:37:06 36.4\S\97.6 Weight 2020-02-24 19:37:06 06117.779\S\2560 Weight Measurement 2020-02-24 19:37:06 Estimated by Staff Method 02 Sat by Pulse 2020-02-24 19:25:22 98 /min Oximetry Body Mass Index 2020-02-24 19:25:22 23.0 Height 2020-02-24 19:25:22 177.8\S\70 Pulse Rate 2020-02-24 19:25:22 86 /min Respiratory Rate 2020-02-24 19:25:22 18 /min Temperature 2020-02-24 19:25:22 36.4\S\97.6 Weight 2020-02-24 19:25:22 14070.779\S\2560 Weight Measurement 2020-02-24 19:25:22 Estimated by Staff Method WEIGHT 2020-02-24 19:20:00 72.422002 kg HEIGHT 2020-02-24 19:20:00 177.8 cm Procedures Procedure Date / Time Performed Performing Clinician Sour e NOTICE OF PRIVACY 2020-11-02 22:40:25 [facility] CONSENT/REFUSAL FOR 2020-11-02 22:35:54 [facility] Name Medical Branch TREATMENT Encounters Start End Encounter Admission Attending Care Care Encounter Source Date/Time Date/Time Type Type Clinicians Facility Department ID 2020-02-25 Inpatient [facility] [id number] [facility] 23:04:00 44 2020-02-24 Inpatient [facility] [id number] [facility] 19:12:00 59 2020-11-02 2020-11-02 Emergency Drever, [facility] [id number] Univers 17:48:00 19:44:00 Rica Teran [id number] ity [facility] [id number] [facility] [id number] [place] [id number] Branch 2020-11-02 2020-11-02 Emergency X [facility] ERT [id number] Univers 17:35:00 17:35:00 ity of [facility] 2020-02-24 2020-02-24 Emergency [facility] [id number] [facility] 19:12:00 19:12:00 59 Results Test Description Test Time Test Comments Results Result Comments Source Thyroid Stimulating Hormone 2020-02-24 19:45:00 Test Item Value Reference Range Interpretation Comme nts Thyroid Stimulating Hormone (test code = TSH) 4.27 mcIU/mL 0.55-4.7 8 N Ethanol [id number] 19:45:00 Test Item Value Reference Range Interpretation Comments Ethanol (test code = ETOH) 6 mg/dL UA, Urinalysis Rflx Cult/[id number] 19:45:00 Test Item Value Reference Range Interpretation Comments Color,Urine (test code = Yellow Y UCOL) Clarity,Urine (test code = Clear Clear UCLAR) PH,Urine (test code = 7.0 5.5-8.5 UPH.XX) Specific [place],Urine 1.030 1.005-1.030 N (test code = USG) Blood,Urine (test code = Negative cells/uL Negative UBLD) Protein,Urine (test code = Negative mg/dL Negative UPRO) Glucose,Urine (UA) (test Negative mg/dL Negative code = UGLU) Ketones,Urine (test code = Negative mg/dL Negative UKET) Nitrate,Urine (test code = Negative Negative UNIT) Bilirubin,Urine (test code Negative mg/dL Negative = UBIL) Urobilinogen,Urine (test 1.0 mg/dL Negative code = UURO) Leukocyte Esterase,Urine Negative cells/uL Negative (test code = ULEU) Drug Screen,[id number] 19:45:00 Test Item Value Reference Range Interpretation Comments PCP Phencyclidine Screen,Urine (test Negative Negative code = PCPU) Amphetamine Screen,Urine (test code Negative Negative = AMPU) Methadone Screen,Urine (test code = Negative Negative METHU) Opiate Screen,Urine (test code = Negative Negative UOPIS) Barbituates Screen,Urine (test code Negative Negative = BARBU) Benzodiazepines Screen,Urine (test Negative Negative code = UBENZS) Cocaine Screen,Urine (test code = Negative Negative UCOCS) Cannabinoid Screen,Urine (test code Negative Negative = UTHCS) Propoxyphene Screen, Urine (test Negative Negative code = UPROP) Complete Blood Count Auto [id number] 19:45:00 Test Item Value Reference Range Interpretation Comments White Blood Count (test code = 8.9 x10 3/uL 4.4-10.5 N WBCT) Red Blood Count (test code = 4.17 x10 6/uL 4.10-5.70 N RBC) Hemoglobin (test code = HGBT) 13.6 g/dL 13.4-17.4 N Hematocrit (test code = HCTT) 39.5 % 38.7-52.0 N Mean Corpuscular Volume (test 94.70 fL 80.00-100.00 N code = MCV) Mean Corpuscular Hemoglobin 32.6 pg 27.0-32.5 H (test code = MCH) Mean Corpuscular HGB Conc 34.40 g/dL 32.00-37.50 N (test code = MCHC) RDW Coefficient of Variation 12.5 % 11.5-14.5 N (test code = RDWCV) Platelet Count (test code = 210.0 x10 3/uL 140.0-440.0 N PLTT) Mean Platelet Volume (test 11.0 fL code = MPV) Immature Granulocytes % (Auto) 0.2 % 0.0-5.0 N (test code = IMMGRAN%) Neutrophils % (Auto) (test 59.8 % 36.0-70.0 N code = NE%) Lymphocytes % (Auto) (test 21.5 % 12.0-44.0 N code = LY%) Monocytes % (Auto) (test code 12.3 % 0.0-11.0 H = MO%) Eosinophils % (Auto) (test 5.3 % 0.0-7.0 N code = EO%) Basophils % (Auto) (test code 0.9 % 0.0-2.0 N = BA%) Immature Granulocytes # (Auto) 0.02 x10 3/uL (test code = IMMGRAN#) Neutrophils # (Auto) (test 5.4 x10 3/uL 1.6-7.4 N code = NE#) Lymphocytes # (Auto) (test 1.92 x10 3/uL 0.50-4.60 N code = LY#) Monocytes # (Auto) (test code 1.10 x10 3/uL 0.00-1.20 N = MO#) Eosinophils # (Auto) (test 0.47 x10 3/uL 0.00-0.74 N code = EO#) Basophils # (Auto) (test code 0.08 x10 3/uL 0.00-0.21 N = BA#) nRBC Abs (test code = NRBCA) 0 nRBC Pct (test code = NRBCP) 0 % Comprehensive Metabolic [id number] 19:45:00 Test Item Value Reference Range Interpretation Comments SODIUM (test code = NA) 142.0 mmol/L 136.0-145.0 N Potassium,K (test code = K) 4.0 mmol/L 3.0-5.1 N Chloride (test code = CL) 108 mmol/L 98-107 H Carbon Dioxide (test code = 30 mmol/L 20-31 N CO2) Anion Gap (test code = GAP) 4 mmol/L 5-15 L Blood Urea Nitrogen (test code 14 mg/dL 9-23 N = BUN) Creatinine (test code = CREATT) 0.76 mg/dL 0.55-1.02 N Creatinine Clr Calc Pharmacy 145.89 mL/min (test code = CRCLPHA) Estimated GFR ( [place] > 60 mL/min/1.73m2 (test code = EGFRAA) Estimated GFR (Non Afr [place] > 60 mL/min/1.73m2 (test code = EGFRNAA) BUN/Creatinine Ratio (test code 18 ratio 10-20 N = BCRATIO) Glucose (test code = GLU) 108 mg/dL 74-106 H Osmolality,Calculated (test 295.0 code = OSMOC) Calcium (test code = CA) 8.5 mg/dL 8.3-10.6 N Bilirubin,Total (test code = 0.6 mg/dL 0.2-1.1 N BILIT) Aspartate Amino Transferase 25 U/L 0-34 N (test code = AST) Alanine Aminotransferase (test 17 U/L 10-49 N code = ALT) Total Protein (test code = TP) 6.2 g/dL 5.7-8.2 N Albumin Level (test code = ALB) 4.2 g/dL 3.2-4.8 N Globulin (test code = GLOB) 2.0 mg/dL 2.3-3.5 L Albumin/Globulin Ratio (test 2.1 ratio 0.8-2.0 H code = AGRATIO) Alkaline Phosphatase (test code 61 U/L 46-116 N = ALP) Sars-CoV-2/FLU A/B RSV [id number] 19:20:00 Test Item Value Reference Range Interpretation Comments Sars-CoV-2/FLU A/B For use under Emergency RSV PCR (test code = Use Authorization (EUA) SARSFLURSVPCR) only. Sars-CoV-2/FLU A/B ical-devices/emergency-u RSV PCR (test code = se-authorizations. SARSFLURSVPCR1.1) Influenza A PCR: Negative by Nucleic Acid (test code = Amplification Influenza A PCR:) Influenza B PCR: Negative by Nucleic Acid (test code = Amplification Influenza B PCR:) RSV PCR Result: (test Negative by Nucleic Acid code = RSV PCR Amplification Result:) SARS-CoV-2 PCR Negative by Nucleic Acid Result: (test code = Amplification SARS-CoV-2 PCR Result:) Thyroxine Free [id number] 08:22:53 Test Item Value Reference Range Interpretation Comments T4 Free (test code = T4 Free) 1.060 ng/dL 0.930-1.700 RPR [id number] 19:40:08 Test Item Value Reference Range Interpretation Comments RPR Qual (test code = RPR Qual) Non-Reactive Non-Reactive Reactive Control (test code = Reactive Reactive Control) Weak Reactive Control (test Weak Reactive code = Weak Reactive Control) Non-Reactive Control (test code Non-Reactive = Non-Reactive Control) Lot # (test code = Lot #) [id number] N Expiration Dt (test code = 10.31.20 N Expiration Dt) Hemoglobin [id number] 12:10:15 Test Item Value Reference Range Interpretation Comments Hemoglobin A1c (test code 5.2 % 4.8-5.9 No n Diabetic = Hemoglobin A1c) 4.8-5.9%Di abetic <7.0% Thyroid Stimulating [id number] 09:22:05 Test Item Value Reference Range Interpretation Comments TSH (test code = TSH) 6.780 mIU/mL 0.270-4.200 H Lipid [id number] 09:17:31 Test Item Value Reference Range Interpretation Comments Cholesterol Total 112 mg/dL 0-200 RISK OF HE ART (test code = DISEASEPublishe d by Cholesterol Total) [place] [employer] Patti lyte Optimal Borderl ine Increased RiskC HOL <200 200-239 >240TRI G <150 150-199 >200HDL Male >60 <40HDL Fema le >60 <50LDL <100 130 -159 >160LDL Near op timal is 100-129 Triglycerides (test 124 mg/dL 9-200 [...] LDL/HDL Ratio=L DL Calc/HDL Chol Urine Drug [id number] 01:18:36 Test Item Value Reference Range Interpretation [...] confir matory test if desired . Alcohol [id number] 00:40:25 Test Item Value Reference Range Interpretation Comments Ethanol Level (test <0.00 g/dL 0.00-0.01 Intoxica carrie 0.080 g/dL code = Ethanol or more Level) Ethanol Inst (test <0 N code = Ethanol Inst) Comprehensive Metabolic [id number] 20:42:46 Test Item Value Reference Range Interpretation [...] A/G 2.2 ratio N Ratio) Comprehensive Metabolic [id number] 20:42:46 Test Item Value Reference Range Interpretation [...] National Kidney Foundation, http://nkdep.ni h.gov Comprehensive Metabolic [id number] 20:42:46 Test Item Value Reference Range Interpretation [...] Foundation, http://nkdep.ni h.gov Urinalysis with Culture, if [id number] 20:26:39 Test Item Value Reference Range Interpretation [...] GL_SJM_UA_MICRO _IN D Complete Blood Count with [id number] 20:13:10 Test Item Value Reference Range Interpretation [...] code = IPF) 0 % N Automated [id number] 20:13:10 Test Item Value Reference Range Interpretation Comments Neutro Auto (test code = Neutro 62.8 % 36.0-70.0 Auto) Lymph Auto (test code = Lymph Auto) 22.9 % 12.0-44.0 [place] Auto (test code = [place] Auto) 11.0 % 0.0-11.0 Eos, Auto (test code = Eos, Auto) 2.3 % 0.0-7.0 Basophil Auto (test code = Basophil 0.6 % 0.0-2.0 Auto) Neutro Absolute (test code = Neutro 5.9 x10 1.6-7.4 Absolute) Lymph Absolute (test code = Lymph 2.15 x10 .50-4.60 Absolute) [place] Absolute (test code = [place] 1.03 x10 .00-1.20 Absolute) Eos Absolute (test code = Eos 0.22 x10 0.00-0.74 Absolute) Baso Absolute (test code = Baso 0.06 x10 0.00-0.21 Absolute) IG [id number] 20:13:10 Test Item Value Reference Range Interpretation Comments IG (test code = IG) 0.4 % 0.0-5.0 IG Abs (test code = IG Abs) 0 x10 N
--- NOTE | 2021-10-29 12:00 | RAD REPORT ---
EXAM DESCRIPTION: CT - Head C Spine Cap Kyra Garza - 10/29/2021 11:41 am CLINICAL HISTORY: fall 20 ft COMPARISON: No comparisons TECHNIQUE: Axial [address] head images were obtained. Axial [address] cervical spine images were obtaine d with sagittal and coronal reconstruction images reviewed. During dynamic enhancement of 100mL non-i onic contrast, axial 5 mm images of the chest, abdomen and pelvis were obtained. Biphasic technique p erformed of the abdomen and pelvis. All CT scans are performed using dose optimization technique as appropriate and may include automated exposure control or mA/KV adjustment according to patient size. FINDINGS: No intracranial hemorrhage is present. No cortical contusion or edema. Ventricles are norm al. No midline shift or abnormal fluid collection. The [place] air cells and paranasal sinuses are cl ear. No skull fracture. CT cervical spine imaging shows normal height. Normal alignment of the vertebrae. No disc space narro wing. No paraspinal mass or hematoma seen. Central canal detail is inherently limited. Concerns for t raumatic disc herniation or traumatic cord injury can be further addressed with MR imaging. CT chest shows no pneumothorax, pulmonary contusion or pleural fluid collection. No mediastinal hemat cora and the aorta and pulmonary arteries are unremarkable. No chest will mass or abnormal axillary fi nding. No displaced rib fracture or other significant bony finding. A few nonspecific mediastinal an d hilar lymph nodes are present likely reactive. No pericardial effusion. CT abdomen and pelvis show no injury to solid abdominal viscera. Gallbladder and biliary tree are unr emarkable. No bowel injury or significant finding. No free air, free fluid or abnormal stranding. No urinary bladder abnormality. No abnormal pelvic or abdominal lymphadenopathy. No compression fracture or significant finding of the thoracic and lumbar vertebrae. No sternum fract ure or pelvis fracture seen. Hip joints are unremarkable. No significant vascular finding. IMPRESSION: No significant CT Head finding. No significant CT Cervical Spine finding. No acute traumatic injury to the chest. Patient has mediastinal and hilar lymph nodes are not large b ulky. These are likely reactive. No significant CT Abdomen and Pelvis finding.
[2021-10-29 12:11] LABS: Potassium 3.8 mmol/L (3.5-5.1)
[2021-10-29 12:18] LABS: Absolute Lymphocytes (CBC) 1.2 K/uL (0.7-4.9); Hematocrit 43.4 % (39.6-49.0); Lymphocytes % 13.9 % (15.3-44.8); MCV 93.9 fL (80-100); MPV 9.4 fL (7.6-11.3); RBC Red Blood Cell Count 4.62 M/uL (4.33-5.43)
--- NOTE | 2021-10-29 12:36 | RAD REPORT ---
EXAM DESCRIPTION: RAD - Chest Single View - 10/29/2021 12:30 pm CLINICAL HISTORY: fall Chest pain. COMPARISON: Chest Single View dated 01/19/2020 FINDINGS: Portable technique limits examination quality. The lungs are grossly clear. The heart is normal in size. No displaced fractures. IMPRESSION: No acute intrathoracic process suspected.
--- NOTE | 2021-10-29 13:14 | EDPHYS ---
Physician Documentation [facility] Name: Darinel Jaeger III Age: 31 yrs Sex: Male : 1990 Arrival Date: 10/29/2021 Time: 11:20 Bed 2 Private MD: ED Physician Josué Brush HPI: 10/29 11:53 This 31 yrs old Male presents to ER via Ambulatory with complaints of Fall Injury. ms3 11:53 31-year-old male with past medical history of anxiety, bipolar, depression, ms3 methamphetamine abuse presents status post falling 20 feet from a tree. Patient states he thought his safety equipment was connected when he leaned back and fell. Patient states he is having moderate head pain and back pain that is throbbing. Patient denies alleviating or inciting factors. Patient denies loss of consciousness, nausea, vomiting, abdominal pain, shortness of breath, chest pain.. Historical: - Allergies: 11:25 No Known Allergies; ph - PMHx: 11:25 Anxiety; Bipolar disorder; Depression; Methamphetamine abuse; Schizophrenia; ph - Immunization history: Last tetanus immunization: unknown. - Social history:: Smoking status: Patient reports the use of cigarette tobacco products. ROS: 11:53 Constitutional: Negative for fever, and chills. ms3 11:53 Cardiovascular: Negative for chest pain, and palpitations. Respiratory: Negative for shortness of breath, cough, wheezing, and pleuritic chest pain, Abdomen/GI: Negative for abdominal pain, nausea, vomiting, diarrhea, and constipation. 11:53 Neck: Positive for tenderness, bony tenderness. 11:53 Back: Positive for injury or acute deformity. 11:53 MS/extremity: Positive for abrasion. 11:53 All other systems are negative. Exam: 11:53 Constitutional: This is a well developed, well nourished patient who is awake, alert, ms3 and in no acute distress. 11:53 ENT: Nares patent. No nasal discharge, no septal abnormalities noted. Tympanic membranes are normal and external auditory canals are clear. Oropharynx with no redness, swelling, or masses, exudates, or evidence of obstruction, uvula midline. Mucous membranes moist. 11:53 Back: No spinal tenderness. No costovertebral tenderness. No step offs present Neuro: Awake and alert, GCS 15, oriented to person, place, time, and situation. Cranial nerves II-XII grossly intact. Motor strength 5/5 in all extremities. Sensory grossly intact. Cerebellar exam normal. Normal gait. Psych: Awake, alert, with orientation to person, place and time. Behavior, mood, and affect are within normal limits. 11:53 Head/face: Noted is abrasion(s), that are moderate, of the forehead and right upper chest. 11:53 Neck: External neck: tenderness, that is mild, of the left mid cervical area, right mid cervical area and lower cervical area, C-spine: C-collar placed in ED, vertebral tenderness, is not appreciated. 11:53 Skin: Abrasions to forehead and right anterior chest. Vital Signs: 11:21 BP 128 / 70; Pulse 64; Resp 16 S; Temp 98.8(O); Pulse Ox 100% on R/A; Weight 81.65 kg jd3 (R); Height 5 ft. 11 in. (180.34 cm) (R); Pain 0/10; 11:48 BP 119 / 55; Pulse 68; Resp 19 S; Pulse Ox 100% on R/A; jd3 12:10 BP 116 / 57; Pulse 60; Resp 16; Pulse Ox 98% on R/A; Pain 0/10; jd3 13:38 BP 114 / 53; Pulse 63; Resp 17; Pulse Ox 98% on R/A; jd3 11:21 Body Mass Index 25.10 (81.65 kg, 180.34 cm) jd3 Connie Coma Score: 11:21 Eye Response: spontaneous(4). Verbal Response: oriented(5). Motor Response: obeys jd3 commands(6). Total: 15. 12:10 Eye Response: spontaneous(4). Verbal Response: oriented(5). Motor Response: obeys jd3 commands(6). Total: 15. 13:38 Eye Response: spontaneous(4). Verbal Response: oriented(5). Motor Response: obeys jd3 commands(6). Total: 15. Trauma Score (Adult): 11:21 Eye Response: spontaneous(1); Verbal Response: oriented(1); Motor Response: obeys jd3 commands(2); Systolic BP: > 89 mm Hg(4); Respiratory Rate: 10 to 29 per min(4); Connie Score: 15; Trauma Score: 12 12:10 Eye Response: spontaneous(1); Verbal Response: oriented(1); Motor Response: obeys jd3 commands(2); Systolic BP: > 89 mm Hg(4); Respiratory Rate: 10 to 29 per min(4); [place] Score: 15; Trauma Score: 12 13:38 Eye Response: spontaneous(1); Verbal Response: oriented(1); Motor Response: obeys jd3 commands(2); Systolic BP: > 89 mm Hg(4); Respiratory Rate: 10 to 29 per min(4); Connie Score: 15; Trauma Score: 12 MDM: 11:28 Patient medically screened. ms3 11:57 Differential diagnosis: abrasion, closed head injury, contusion, fracture, multiple ms3 trauma, sprain, strain. 13:28 Data reviewed: vital signs, nurses notes, lab test result(s), radiologic studies, and ms3 as a result, I will discharge patient. 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 Counseling: I had a detailed discussion with the patient and/or guardian regarding: the historical points, exam findings, and any diagnostic results supporting the discharge/admit diagnosis, lab results, radiology results, the need for outpatient follow up, to return to the emergency department if symptoms worsen or persist or if there are any questions or concerns that arise at home. ED course: Discussed CT scan and labs with patient. Patient to follow-up with his primary care physician as discussed. All questions were answered. Return precautions discussed include worsening symptoms, or any other concerns. In the emergency department patient is alert and oriented x4, in no apparent distress, nontoxic-appearing, ambulatory in emergency department.. 10/29 11:28 Order name: Basic Metabolic Panel; Complete Time: 12:47 ms3 10/29 11:28 Order name: CBC with Diff; Complete Time: 12:47 ms3 10/29 11:28 Order name: Type And Screen; Complete Time: 12:47 ms3 10/29 12:41 Order name: ABO/RH no charge; Complete Time: 12:47 EDMS 10/29 13:15 Order name: Urine Dipstick-Ancillary EDMS 10/29 11:28 Order name: Labs collected and sent; Complete Time: 11:37 ms3 10/29 11:28 Order name: CXR XRAY; Complete Time: 12:47 ms3 10/29 11:28 Order name: Urine Dipstick-Ancillary (obtain specimen); Complete Time: 13:19 ms3 10/29 11:39 Order name: Head C Spine Cap W Con; Complete Time: 12:47 EDMS Administered Medications: 13:16 Drug: ADAcel 0.5 ml {Manager Relocation: [employer] ([employer]). Exp: 03/30/2022. Lot #: [id number]. } Route: IM; Site: left deltoid; 13:37 Follow up: Response: No adverse reaction jd3 Disposition Summary: 10/29/21 13:13 Discharge Ordered Location: Home ms3 Condition: Stable ms3 Diagnosis - Low back pain ms3 - Fall (on)(from) incline ms3 - Abrasion of unspecified part of head ms3 Followup: ms3 - With: Felipe Crane DO - When: 2 - 3 days - Reason: Recheck today's complaints, Re-evaluation by your physician Discharge Instructions: - Discharge Summary Sheet ms3 - Acute Back Pain, Adult ms3 - Musculoskeletal Pain ms3 - Abrasion, [id number] ms3 Forms: - Medication Reconciliation Form ms3 - Thank You Letter ms3 - Antibiotic Education ms3 - Prescription Opioid Use ms3 Prescriptions: - Ibuprofen 600 mg Oral Tablet - take 1 tablet by ORAL route every 6 hours As needed take with food; 30 tablet; ms3 Refills: 0, Product Selection Permitted Signatures: Dispatcher [employer] Jenny Bustamante RN Navid Ceballos ph D, RN RN jd3 Sims, Marcus, DO DO ms3 Corrections: (The following items were deleted from the chart) 11:39 11:29 Head C Spine Cap Wo Con+CT.RAD.BRZ ordered. EDMS EDMS 12:03 11:53 Head C Spine CAP W Con+CT.RAD.BRZ ordered. EDMS EDMS
--- NOTE | 2021-10-29 13:14 | ER ---
Nurse's Notes [facility] Name: Darinel Jaeger III Age: 31 yrs Sex: Male : 1990 Arrival Date: 10/29/2021 Time: 11:20 Bed 2 Private MD: Diagnosis: Low back pain;Fall (on)(from) incline;Abrasion of unspecified part of head Presentation: 10/29 11:21 Note C-collar placed after receiving the pt to bed. jd3 11:24 Chief complaint: Patient states: " I was climbing a tree to trim it and I thought I was ph tied off but I wasn't" Reports that he fell approx 20 feet, +LOC, abrasions to face and chest, c/o dizziness and nausea. Coronavirus screen: Vaccine status: Patient reports being unvaccinated. Ebola Screen: No symptoms or risks identified at this time. Initial Sepsis Screen: Does the patient meet any 2 criteria? No. Patient's initial sepsis screen is negative. Does the patient have a suspected source of infection? No. Patient's initial sepsis screen is negative. Risk Assessment: Do you want to hurt yourself or someone else? Patient reports no desire to harm self or others. Onset of symptoms was October 29, 2021. 11:24 Method Of Arrival: Ambulatory ph 11:24 Acuity: KAVON 2 ph 11:31 Care prior to arrival: None. Mechanism of Injury: Fall approximately 20 feet. Trauma jd3 event details: Injury occurred in the [facility], Injury occurred: at home. Injury occurred: October 29, 2021 Injury occurred at: 11:00. Trauma Activation: Alert Physician: ED Physician; Name: Brush; Notified At: 11:21; Arrived At: 11:21 Physician: General Surgeon; Name: ; Notified At: 11:21; Arrived At: Physician: Radiology; Name: X-ray and valve technician; Notified At: 11:21; Arrived At: 11:22 Physician: Respiratory; Name: ; Notified At: 11:21; Arrived At: Physician: Lab; Name: ; Notified At: 11:21; Arrived At: Historical: - Allergies: 11:25 No Known Allergies; ph - PMHx: 11:25 Anxiety; Bipolar disorder; Depression; Methamphetamine abuse; Schizophrenia; ph - Immunization history: Last tetanus immunization: unknown. - Social history:: Smoking status: Patient reports the use of cigarette tobacco products. Screenin:21 Abuse screen: Denies threats or abuse. Nutritional screening: No deficits noted. jd3 Tuberculosis screening: No symptoms or risk factors identified. 11:46 Fall Risk Fall in past 12 months (25 points). IV access (20 points). Ambulatory Aid- jd3 None/Bed Rest/Nurse Assist (0 pts). Gait- Normal/Bed Rest/Wheelchair (0 pts) Mental Status- Oriented to own ability (0 pts). Total Eller Fall Scale indicates High Risk Score (45 or more points). Fall prevention measures have been instituted. Side Rails Up X 2 Placed Close to Nursing Station Frequent Obs/Assessments Occuring As available patient and family educated on Fall Prevention Program and Strategies. Primary Survey: 11:21 NO uncontrolled hemorrhage observed. A: The client is awake and alert. The airway is jd3 patent. The client is alert. Breathing/Chest: Spontaneous respiratory effort, equal unlabored respirations, breath sounds clear bilaterally, regular pattern, symmetrical chest rise and fall. Respiratory effort: spontaneous, unlabored, Breath sounds: clear, bilaterally. Respiratory pattern: regular, Chest inspection: symmetrical rise and fall of the chest. Circulation: No external hemorrhage present. Regular and strong central pulse, skin warm/dry/normal color. Pulses: palpable right radial artery, right dorsalis pedis artery, left radial artery and left dorsalis pedis artery. Skin color: pink, Skin temperature: warm, Cardiac rhythm: sinus rhythm. Disability Pupils are equal, round, reactive to light and accommodation. Client is alert. Exposure/Environment: All clothing and personal items were removed. Forensic evidence collection is not deemed to be indicated at this time. Items placed in patient belonging bag. There is no evidence of uncontrolled external bleeding. A warming method has been applied: A warm blanket has been provided to the patient. 12:11 Reassessment Alertness and Airway: Awake and alert. The airway is patent. Breathing: jd3 Spontaneous respiratory effort, equal unlabored respirations, breath sounds clear bilaterally, regular pattern with symmetrical chest rise and fall. Circulation: No external hemorrhage noted. Regular and strong central pulse, skin warm/dry/normal color. Disability: Pupils Pupils are equal, round, reactive to light and accomodation. Alert. Secondary Survey: 11:21 HEENT: No deficits noted. Gastrointestinal: No deficits noted. Abdomen is soft, Bowel jd3 sounds present in all quadrants. Palpation No deficit noted. : No signs and/or symptoms were reported regarding the genitourinary system. Musculoskeletal: Circulation, motion, and sensation intact. Range of motion: intact in all extremities. Assessment: 11:21 General: Appears uncomfortable, Behavior is cooperative, appropriate for age, anxious. jd3 Pain: Complains of pain in head, neck, chest and back Quality of pain is described as aching, tender, Also complains of inability to concentrate, reports feeling dizzy and "feeling like passing out". Neuro: Hazel Agitation-Sedation Scale (RASS): 0 - Alert and Calm Level of Consciousness is awake, alert, obeys commands, Oriented to person, place, time, situation, Cat Scanner Operator are equal bilaterally Moves all extremities. Full function Speech is normal, Facial symmetry appears normal, Pupils are PERRLA, Reports blurred vision dizziness, headache. EENT: No signs and/or symptoms were reported regarding the EENT system. Cardiovascular: Denies chest pain, Heart tones S1 S2 present Capillary refill < 3 seconds Patient's skin is warm and dry. Rhythm is regular. Respiratory: Airway is patent Respiratory effort is even, unlabored, Respiratory pattern is regular, symmetrical, Breath sounds are clear bilaterally. Denies cough, shortness of breath. GI: No signs and/or symptoms were reported involving the gastrointestinal system. : No signs and/or symptoms were reported regarding the genitourinary system. Derm: Skin is intact, Skin is dry, Skin is normal, Skin temperature is warm Bruising that is on chest abrasions noted to face and chest. no bleeding noted. Musculoskeletal: Circulation, motion, and sensation intact. Range of motion: intact in all extremities. 12:10 Reassessment: Patient appears in no apparent distress at this time. Patient and/or jd3 family updated on plan of care and expected duration. Pain level reassessed. Patient is alert, oriented x 3, equal unlabored respirations, skin warm/dry/pink. Neuro: Hazel Agitation-Sedation Scale (RASS): 0 - Alert and Calm Level of Consciousness is awake, alert, obeys commands, Oriented to person, place, time, situation. Vital Signs: 11:21 BP 128 / 70; Pulse 64; Resp 16 S; Temp 98.8(O); Pulse Ox 100% on R/A; Weight 81.65 kg jd3 (R); Height 5 ft. 11 in. (180.34 cm) (R); Pain 0/10; 11:48 BP 119 / 55; Pulse 68; Resp 19 S; Pulse Ox 100% on R/A; jd3 12:10 BP 116 / 57; Pulse 60; Resp 16; Pulse Ox 98% on R/A; Pain 0/10; jd3 13:38 BP 114 / 53; Pulse 63; Resp 17; Pulse Ox 98% on R/A; jd3 11:21 Body Mass Index 25.10 (81.65 kg, 180.34 cm) jd3 Connie Coma Score: 11:21 Eye Response: spontaneous(4). Verbal Response: oriented(5). Motor Response: obeys jd3 commands(6). Total: 15. 12:10 Eye Response: spontaneous(4). Verbal Response: oriented(5). Motor Response: obeys jd3 commands(6). Total: 15. 13:38 Eye Response: spontaneous(4). Verbal Response: oriented(5). Motor Response: obeys jd3 commands(6). Total: 15. Trauma Score (Adult): 11:21 Eye Response: spontaneous(1); Verbal Response: oriented(1); Motor Response: obeys jd3 commands(2); Systolic BP: > 89 mm Hg(4); Respiratory Rate: 10 to 29 per min(4); [place] Score: 15; Trauma Score: 12 12:10 Eye Response: spontaneous(1); Verbal Response: oriented(1); Motor Response: obeys jd3 commands(2); Systolic BP: > 89 mm Hg(4); Respiratory Rate: 10 to 29 per min(4); [place] Score: 15; Trauma Score: 12 13:38 Eye Response: spontaneous(1); Verbal Response: oriented(1); Motor Response: obeys jd3 commands(2); Systolic BP: > 89 mm Hg(4); Respiratory Rate: 10 to 29 per min(4); [place] Score: 15; Trauma Score: 12 ED Course: 11:20 Patient arrived in ED. mr 11:21 Patient has correct armband on for positive identification. Placed in gown. Bed in low jd3 position. Call light in reach. Side rails up X2. Valuables Left with patient. Client placed on continuous cardiac and pulse oximetry monitoring. NIBP monitoring applied. chief warden on. Pulse ox on. NIBP on. 11:21 Inserted saline lock: 18 gauge in left antecubital area, using aseptic technique. Blood jd3 collected. Patient maintains SpO2 saturation greater than 95% on room air. Thermoregulation: warm blanket given to patient. 11:22 Josué Brush DO is Attending Physician. ms3 11:25 Triage completed. ph 11:25 Arm band placed on Patient placed in an exam room, on a stretcher. ph 11:29 Inserted saline lock: 18 gauge in right antecubital area, using aseptic technique. vg1 11:31 Navid Dela Cruz, RN is Primary Nurse. jd3 11:42 Head C Spine Cap W Con In Process Unspecified. EDMS 12:32 CXR XRAY In Process Unspecified. EDMS 13:12 Felipe Crane DO is Referral Physician. ms3 13:38 No provider procedures requiring assistance completed. IV discontinued, intact, jd3 bleeding controlled, No redness/swelling at site. Pressure dressing applied. Administered Medications: 13:16 Drug: ADAcel 0.5 ml {Washroom Operator: [employer] ([employer]). Exp: 03/30/2022. Lot #: [id number]. } Route: IM; Site: left deltoid; 13:37 Follow up: Response: No adverse reaction jd3 Medication: 13:38 Vaccine Information Statement (VIS) provided today. Questions and/or concerns jd3 addressed. VIS edition date: October 29, 2021. Intake: 13:38 PO: 100ml (Water); Total: 100ml. jd3 Output: 13:38 Urine: 100ml (Voided); Total: 100ml. jd3 Outcome: 13:13 Discharge ordered by . ms3 13:38 Discharged to home ambulatory, with family. jd3 13:38 Condition: stable 13:38 Discharge instructions given to patient, family, Instructed on discharge instructions, follow up and referral plans. medication usage, Demonstrated understanding of instructions, follow-up care, medications, Prescriptions given X 1. 13:39 Patient's length of stay was not longer than 2 hours. jd3 13:40 Patient left the ED. jd3 Signatures: Dispatcher [employer] Denise Griggs Patricia, RN RN mercedes Dela Cruz, Navid RN RN [email or web address] Tena Padilla RN RN vg1 Josué Brush DO DO ms3
[2021-10-29 13:15] LABS: Urine Blood Negative (Negative); Urine Glucose Negative (Negative); Urine Protein Negative (Negative)
[2021-10-29] MEDS ORDERED: TETANUS & DIPHTHERIA TOX,ADULT 0.5 ML VIAL ONE (13:29)
[2021-10-29] MEDS ORDERED: TDAP (DIPHTH,PERTUSS(ACELL),TET VAC) 0.5 ML VIAL IMVAC ONE (13:32)
[2021-10-29 13:46] VITALS: TEMP 98.8
[2021-10-29 13:56] VITALS: O2SAT 98
[2021-10-29 13:59] VITALS: BP 114/53
== END 2021-10-29 13:40 | disposition home or self-care (01) ==
LOC: ER 11:19
DX: S00.81XA Abrasion of other part of head, initial encounter (principal); M54.50 Low back pain, unspecified; W10.2XXA Fall (on)(from) incline, initial encounter; F20.9 Schizophrenia, unspecified; F17.210 Nicotine dependence, cigarettes, uncomplicated
CPT/HCPCS: 36415; 70450; 71045; 71260; 72125; 74177; 80048; 81003; 85025; 86850; 86900; 86901; 90471; 90714; 99285; Q9967

== ENCOUNTER 2023-08-24 17:28 | Inpatient (IN) | payer OTHER ==
--- OUTSIDE RECORDS SUMMARY | 2023-08-24 17:32 | XMS REPORT | Continuity of Care Document ---
Author Name Unknown Address [address] [facility] [address] [place] [address] [facility] thconnect Address [address] [facility] [address] [place] [address] Care Team Providers Care Data Systems Analyst Name Role Phone Pcp, Patient Does Not Have A Primary Care Physic rich RYAN PAGAN Attending Clinician Amina vailable RYAN PAGAN Attending Clinician Amina vailable Eliecer CAUL PULLER, Rica Barone Attending Clinician [phone] RYAN PAGAN Admitting Clinician Amina vailable Payers Payer Name Policy Type Policy Number Effective Date Expirati on Date Source [id number] 1960 00:00:00 Problems Condition Name Condition Details Condition Category Status Onset Date Resolution Date Last Treatment Date Treating Clinician Comments Source No known active problems No known active problems Disease [facility] Allergies, Adverse Reactions, Alerts Allergy Name Allergy Type Status Severity Reaction(s) Onset Date Inactive Date Treating Clinician Comments Source No Known Drug Allergie s DA Active U 2019-02 00:00: 00 [facility] No Known Drug Allergie s DA Active U 2019-02 00:00: 00 [facility] NO KNOWN ALLERGIE S Drug Class Active [facility] No Known Drug Allergie s DA Active [facility] (LUF/LI V/SA) Social History Social Habit Start Date Stop Date Quantity Comments Source Exposure to SARS-CoV-2 (event) Not sure [facility] Sex Assigned At 1990 00:00:00 1990 00:00:00 [facility] Smoking Status Start Date Stop Date Source Current every day smoker [facility] (LUF/KARINA/SA) Unknown if ever smoked [facility] Medications Ordered Medication Name Filled Medication Name Start Date Stop Date Current Medication? Ordering Clinician Indication Dosage Frequency Signature (SIG) Comments Components Source No known medications No Un valery [facility] Vital Signs Vital Name Observation Time Observation Value Comments S ource Height 2023-02-17 20:21:00 177.8 CM Weight 2023-02-17 20:21:00 81.64 KG Systolic blood pressure 2020-11-02 22:47:00 153 mm[Hg] [facility] Diastolic blood pressure 2020-11-02 22:47:00 90 mm[Hg] [facility] Heart rate 2020-11-02 22:47:00 98 /min [facility] Body temperature 2020-11-02 22:47:00 36.83 Rachel [facility] Respiratory rate 2020-11-02 22:47:00 18 /min [facility] Body weight 2020-11-02 22:47:00 81.647 kg [facility] Oxygen saturation in Arterial blood by Pulse oximetry 2020-11-02 22:47:00 99 /min [facility] Pulse Rate 2023-02-17 20:21:00 83 /min [facility] S [facility] (LUF/KARINA/SA) Respiratory Rate 2023-02-17 20:21:00 18 /min [facility] (LUF/KARINA/SA) O2% BldC Oximetry 2023-02-17 20:21:00 95 % [facility] (LUF/KARINA/SA) BP Systolic 2023-02-17 20:21:00 130 mm[Hg] [facility] (LUF/KARINA/SA) BP Diastolic 2023-02-17 20:21:00 78 mm[Hg] [facility] (LUF/KARINA/SA) Height 2023-02-17 20:21:00 70 [in_i] [facility] (LUF/KARINA/SA) Weight 2023-02-17 20:21:00 180 [lb_av] [facility] (LUF/KARINA/SA) BMI (Body Mass Index) 2023-02-17 20:21:00 26 kg/m2 [facility] (LUF/KARINA/SA) Body Temperature 2023-02-17 20:21:00 97.7 [degF] [facility] (LUF/KARINA/SA) Heart Rate 2023-02-17 20:21:00 83 /min [facility] (LUF/KARINA/SA) 02 Sat by Pulse Oximetry 2020-02-28 14:32:36 99 /min Body Mass Index 2020-02-28 14:32:36 24.1 Height 2020-02-28 14:32:36 168\S\66.14 Pulse Rate 2020-02-28 14:32:36 82 /min Respiratory Rate 2020-02-28 14:32:36 16 /min Temperature 2020-02-28 14:32:36 36.8\S\98.2 Weight 2020-02-28 14:32:36 94692\S\2398.629 Respiratory 2020-02-28 14:31:04 No respirato ry distress /min 02 Sat by Pulse Oximetry 2020-02-28 14:31:04 100 /min Body Mass Index 2020-02-28 14:31:04 23.0 Height 2020-02-28 14:31:04 177.8\S\70 Pulse Rate 2020-02-28 14:31:04 63 /min Respiratory Rate 2020-02-28 14:31:04 17 /min Temperature 2020-02-28 14:31:04 36.9\S\98.4 Weight 2020-02-28 14:31:04 49715.779\S\2560 Weight Measurement Method 2020-02-28 14:31:04 Estimated by Staff 02 Sat by Pulse Oximetry 2020-02-27 10:50:50 99 /min Body Mass Index 2020-02-27 10:50:50 24.1 Height 2020-02-27 10:50:50 168\S\66.14 Pulse Rate 2020-02-27 10:50:50 82 /min Respiratory Rate 2020-02-27 10:50:50 16 /min Temperature 2020-02-27 10:50:50 36.8\S\98.2 Weight 2020-02-27 10:50:50 58720\S\2398.629 Respiratory 2020-02-26 10:30:15 No respirato ry distress /min 02 Sat by Pulse Oximetry 2020-02-26 10:30:15 100 /min Body Mass Index 2020-02-26 10:30:15 23.0 Height 2020-02-26 10:30:15 177.8\S\70 Pulse Rate 2020-02-26 10:30:15 63 /min Respiratory Rate 2020-02-26 10:30:15 17 /min Temperature 2020-02-26 10:30:15 36.9\S\98.4 Weight 2020-02-26 10:30:15 76160.779\S\2560 Weight Measurement Method 2020-02-26 10:30:15 Estimated by Staff 02 Sat by Pulse Oximetry 2020-02-26 06:30:27 99 /min Body Mass Index 2020-02-26 06:30:27 24.1 Height 2020-02-26 06:30:27 168\S\66.14 Pulse Rate 2020-02-26 06:30:27 82 /min Respiratory Rate 2020-02-26 06:30:27 16 /min Temperature 2020-02-26 06:30:27 36.8\S\98.2 Weight 2020-02-26 06:30:27 68930\S\2398.629 02 Sat by Pulse Oximetry 2020-02-26 05:11:30 99 /min Body Mass Index 2020-02-26 05:11:30 24.1 Height 2020-02-26 05:11:30 168\S\66.14 Pulse Rate 2020-02-26 05:11:30 98 /min Respiratory Rate 2020-02-26 05:11:30 18 /min Temperature 2020-02-26 05:11:30 36.8\S\98.2 Weight 2020-02-26 05:11:30 92668\S\2398.629 02 Sat by Pulse Oximetry 2020-02-25 23:41:23 99 /min Body Mass Index 2020-02-25 23:41:23 24.1 Height 2020-02-25 23:41:23 168\S\66.14 Pulse Rate 2020-02-25 23:41:23 98 /min Respiratory Rate 2020-02-25 23:41:23 18 /min Temperature 2020-02-25 23:41:23 36.8\S\98.2 Weight 2020-02-25 23:41:23 10723\S\2398.629 02 Sat by Pulse Oximetry 2020-02-25 23:30:34 100 /min Body Mass Index 2020-02-25 23:30:34 23.0 Height 2020-02-25 23:30:34 177.8\S\70 Pulse Rate 2020-02-25 23:30:34 63 /min Respiratory Rate 2020-02-25 23:30:34 17 /min Temperature 2020-02-25 23:30:34 36.9\S\98.4 Weight 2020-02-25 23:30:34 47557.779\S\2560 Respiratory 2020-02-25 23:30:34 No respirato ry distress /min Weight Measurement Method 2020-02-25 23:30:34 Estimated by Staff 02 Sat by Pulse Oximetry 2020-02-25 23:27:59 99 /min Body Mass Index 2020-02-25 23:27:59 24.1 Height 2020-02-25 23:27:59 168\S\66.14 Pulse Rate 2020-02-25 23:27:59 98 /min Respiratory Rate 2020-02-25 23:27:59 18 /min Temperature 2020-02-25 23:27:59 36.8\S\98.2 Weight 2020-02-25 23:27:59 28576\S\2398.629 02 Sat by Pulse Oximetry 2020-02-25 23:19:45 99 /min Body Mass Index 2020-02-25 23:19:45 24.1 Height 2020-02-25 23:19:45 168\S\66.14 Pulse Rate 2020-02-25 23:19:45 98 /min Respiratory Rate 2020-02-25 23:19:45 18 /min Temperature 2020-02-25 23:19:45 36.8\S\98.2 Weight 2020-02-25 23:19:45 71082\S\2398.629 02 Sat by Pulse Oximetry 2020-02-25 23:18:43 99 /min Body Mass Index 2020-02-25 23:18:43 24.1 Height 2020-02-25 23:18:43 168\S\66.14 Pulse Rate 2020-02-25 23:18:43 98 /min Respiratory Rate 2020-02-25 23:18:43 18 /min Temperature 2020-02-25 23:18:43 36.8\S\98.2 Weight 2020-02-25 23:18:43 78072\S\2398.629 WEIGHT 2020-02-25 23:16:00 68 kg HEIGHT 2020-02-25 23:16:00 168 cm Respiratory 2020-02-25 10:13:34 No respirato ry distress /min 02 Sat by Pulse Oximetry 2020-02-25 10:13:34 100 /min Body Mass Index 2020-02-25 10:13:34 23.0 Height 2020-02-25 10:13:34 177.8\S\70 Pulse Rate 2020-02-25 10:13:34 63 /min Respiratory Rate 2020-02-25 10:13:34 17 /min Temperature 2020-02-25 10:13:34 36.9\S\98.4 Weight 2020-02-25 10:13:34 27595.779\S\2560 Weight Measurement Method 2020-02-25 10:13:34 Estimated by Staff Respiratory 2020-02-25 10:12:32 No respirato ry distress /min 02 Sat by Pulse Oximetry 2020-02-25 10:12:32 100 /min Body Mass Index 2020-02-25 10:12:32 23.0 Height 2020-02-25 10:12:32 177.8\S\70 Pulse Rate 2020-02-25 10:12:32 63 /min Respiratory Rate 2020-02-25 10:12:32 17 /min Temperature 2020-02-25 10:12:32 36.9\S\98.4 Weight 2020-02-25 10:12:32 57973.779\S\2560 Weight Measurement Method 2020-02-25 10:12:32 Estimated by Staff Respiratory 2020-02-25 04:02:05 No respirato ry distress /min 02 Sat by Pulse Oximetry 2020-02-25 04:02:05 98 /min Body Mass Index 2020-02-25 04:02:05 23.0 Height 2020-02-25 04:02:05 177.8\S\70 Pulse Rate 2020-02-25 04:02:05 81 /min Respiratory Rate 2020-02-25 04:02:05 18 /min Temperature 2020-02-25 04:02:05 36.4\S\97.6 Weight 2020-02-25 04:02:05 12893.779\S\2560 Weight Measurement Method 2020-02-25 04:02:05 Estimated by Staff Respiratory 2020-02-25 03:59:32 No respirato ry distress /min 02 Sat by Pulse Oximetry 2020-02-25 03:59:32 98 /min Body Mass Index 2020-02-25 03:59:32 23.0 Height 2020-02-25 03:59:32 177.8\S\70 Pulse Rate 2020-02-25 03:59:32 81 /min Respiratory Rate 2020-02-25 03:59:32 18 /min Temperature 2020-02-25 03:59:32 36.4\S\97.6 Weight 2020-02-25 03:59:32 33741.779\S\2560 Weight Measurement Method 2020-02-25 03:59:32 Estimated by Staff Respiratory 2020-02-25 01:12:45 No respirato ry distress /min 02 Sat by Pulse Oximetry 2020-02-25 01:12:45 98 /min Body Mass Index 2020-02-25 01:12:45 23.0 Height 2020-02-25 01:12:45 177.8\S\70 Pulse Rate 2020-02-25 01:12:45 81 /min Respiratory Rate 2020-02-25 01:12:45 18 /min Temperature 2020-02-25 01:12:45 36.4\S\97.6 Weight 2020-02-25 01:12:45 96978.779\S\2560 Weight Measurement Method 2020-02-25 01:12:45 Estimated by Staff Respiratory 2020-02-25 00:58:55 No respirato ry distress /min 02 Sat by Pulse Oximetry 2020-02-25 00:58:55 98 /min Body Mass Index 2020-02-25 00:58:55 23.0 Height 2020-02-25 00:58:55 177.8\S\70 Pulse Rate 2020-02-25 00:58:55 81 /min Respiratory Rate 2020-02-25 00:58:55 18 /min Temperature 2020-02-25 00:58:55 36.4\S\97.6 Weight 2020-02-25 00:58:55 71293.779\S\2560 Weight Measurement Method 2020-02-25 00:58:55 Estimated by Staff Respiratory 2020-02-24 20:22:07 No respirato ry distress /min 02 Sat by Pulse Oximetry 2020-02-24 20:22:07 98 /min Body Mass Index 2020-02-24 20:22:07 23.0 Height 2020-02-24 20:22:07 177.8\S\70 Pulse Rate 2020-02-24 20:22:07 86 /min Respiratory Rate 2020-02-24 20:22:07 18 /min Temperature 2020-02-24 20:22:07 36.4\S\97.6 Weight 2020-02-24 20:22:07 05662.779\S\2560 Weight Measurement Method 2020-02-24 20:22:07 Estimated by Staff 02 Sat by Pulse Oximetry 2020-02-24 19:37:06 98 /min Body Mass Index 2020-02-24 19:37:06 23.0 Height 2020-02-24 19:37:06 177.8\S\70 Pulse Rate 2020-02-24 19:37:06 86 /min Respiratory Rate 2020-02-24 19:37:06 18 /min Temperature 2020-02-24 19:37:06 36.4\S\97.6 Weight 2020-02-24 19:37:06 69792.779\S\2560 Weight Measurement Method 2020-02-24 19:37:06 Estimated by Staff 02 Sat by Pulse Oximetry 2020-02-24 19:25:22 98 /min Body Mass Index 2020-02-24 19:25:22 23.0 Height 2020-02-24 19:25:22 177.8\S\70 Pulse Rate 2020-02-24 19:25:22 86 /min Respiratory Rate 2020-02-24 19:25:22 18 /min Temperature 2020-02-24 19:25:22 36.4\S\97.6 Weight 2020-02-24 19:25:22 67973.779\S\2560 Weight Measurement Method 2020-02-24 19:25:22 Estimated by Staff WEIGHT 2020-02-24 19:20:00 72.430713 kg HEIGHT 2020-02-24 19:20:00 177.8 cm Procedures Procedure Date / Time Performed Performing Clinicia n Source NOTICE OF PRIVACY PRACTICES 2020-11-02 22:40:25 Doctor Unassigned, [place] [facility] CONSENT/REFUSAL FOR DIAGNOSIS AND TREATMENT 2020-11-02 22:35:54 Doctor Unassigned, [place] [address] [facility] Encounters Start Date/Time End Date/Time Encounter Type Admission Type Attending [facility] Care Facility Care Department Encounter ID Source 2020-02-25 23:04:00 Inpatient [facility] [id number] [facility] 2020-02-24 19:12:00 Inpatient [facility] [id number] [facility] 2023-02-17 20:18:00 2023-02-17 21:03:00 TENSION-TY P HEADACHE UNS NOT INTRCT 1 RYAN PAGAN MATTHEW [address] [address] [facility] [id number] [facility] l (LUF/LI V/SA) 2023-02-17 00:00:00 2023-02-17 00:00:[address] [address] [facility] [id number] [facility] l (LUF/LI V/SA) 2023-02-17 00:00:00 2023-02-17 00:00:[address] [address] [facility] [id number] [facility] l (LUF/LI V/SA) 2020-11-02 17:48:00 2020-11-02 19:44:00 Emergency Rica Gonzáles [facility] [id number] [facility] 2020-11-02 17:35:00 2020-11-02 17:35:00 Emergency X [facility] ERT [id number] [facility] 2020-02-24 19:12:00 2020-02-24 19:12:00 [facility] [id number] [facility] Results Test Description Test Time Test Comments Results Result Co mments Source STLMLURINALYSIS WITHOUT [id number] 20:46:00* Test Item Value Reference Range Interpretation Comme nts Color (test code = UCOLR) Yellow Lt. Yellow A Clarity (test code = UCLAR) Slightly Cloudy Glucose (test code = UGLUC) 500 mg/dL Negative A Bilirubin (test code = UBILI) Negative Negative N Ketones (test code = UKET) Negative Negative N Specific [place] (test code = USPGR) 1.020 1.005-1.030 A Blood (test code = UBLD) Negative Negative N PH (test code = UPH) 6.0 4.5-8.0 A Protein (test code = UPROT) Negative Negative N Urobilinogen (test code = U UROB) 0.2 E.U./dL See_Comment A [Automated message] The system which generated this result transmitted reference range: 0.2. The reference range was not used to interpret this result as normal/abnormal. Nitrite (test code = UNITR) Negative Negative N Leukocyte Esterase (test code = ULEUK) Negative Negative N STLMLUA, Urinalysis Rflx Cult/[id number] 19:45:00* Test Item Value Reference Range Interpretation Comme nts Color,Urine (test code = UCOL) Yellow Y Clarity,Urine (test code = UCLAR) Clear Clear PH,Urine (test code = UPH.XX) 7.0 5.5-8.5 Specific [place],Urine (test code = USG) 1.030 1.005-1.030 N Blood,Urine (test code = UBLD) Negative cells/uL Negative Protein,Urine (test code = UPRO) Negative mg/dL Negative Glucose,Urine (UA) (test code = UGLU) Negative mg/dL Negative Ketones,Urine (test code = UKET) Negative mg/dL Negative Nitrate,Urine (test code = UNIT) Negative Negative Bilirubin,Urine (test code = UBIL) Negative mg/dL Negative Urobilinogen,Urine (test code = UURO) 1.0 mg/dL Negative Leukocyte Esterase,Urine (test code = ULEU) Negative cells/uL Negative Drug Screen,[id number] 19:45:00* Test Item Value Reference Range Interpretation Comme nts PCP Phencyclidine Screen,Uri ne (test code = PCPU) Negative Negative Amphetamine Screen,Urine (te st code = AMPU) Negative Negative Methadone Screen,Urine (test code = METHU) Negative Negative Opiate Screen,Urine (test co de = UOPIS) Negative Negative Barbituates Screen,Urine (te st code = BARBU) Negative Negative Benzodiazepines Screen,Urine (test code = UBENZS) Negative Negative Cocaine Screen,Urine (test c ode = UCOCS) Negative Negative Cannabinoid Screen,Urine (te st code = UTHCS) Negative Negative Propoxyphene Screen, Urine ( test code = UPROP) Negative Negative Complete Blood Count Auto [id number] 19:45:00* Test Item Value Reference Range Interpretation Comme nts White Blood Count (test code = WBCT) 8.9 x10 3/uL 4.4-10.5 N Red Blood Count (test code = RBC) 4.17 x10 6/uL 4.10-5.70 N Hemoglobin (test code = HGBT) 13.6 g/dL 13.4-17.4 N Hematocrit (test code = HCTT) 39.5 % 38.7-52.0 N Mean Corpuscular Volume (kyra t code = MCV) 94.70 fL 80.00-100.00 N Mean Corpuscular Hemoglobin (test code = MCH) 32.6 pg 27.0-32.5 H Mean Corpuscular HGB Conc (test code = MCHC) 34.40 g/dL 32.00-37.50 N RDW Coefficient of Variation (test code = RDWCV) 12.5 % 11.5-14.5 N Platelet Count (test code = PLTT) 210.0 x10 3/uL 140.0-440.0 N Mean Platelet Volume (test code = MPV) 11.0 fL Immature Granulocytes % (Aut o) (test code = IMMGRAN%) 0.2 % 0.0-5.0 N Neutrophils % (Auto) (test code = NE%) 59.8 % 36.0-70.0 N Lymphocytes % (Auto) (test code = LY%) 21.5 % 12.0-44.0 N Monocytes % (Auto) (test cod e = MO%) 12.3 % 0.0-11.0 H Eosinophils % (Auto) (test code = EO%) 5.3 % 0.0-7.0 N Basophils % (Auto) (test cod e = BA%) 0.9 % 0.0-2.0 N Immature Granulocytes # (Aut o) (test code = IMMGRAN#) 0.02 x10 3/uL Neutrophils # (Auto) (test code = NE#) 5.4 x10 3/uL 1.6-7.4 N Lymphocytes # (Auto) (test code = LY#) 1.92 x10 3/uL 0.50-4.60 N Monocytes # (Auto) (test cod e = MO#) 1.10 x10 3/uL 0.00-1.20 N Eosinophils # (Auto) (test code = EO#) 0.47 x10 3/uL 0.00-0.74 N Basophils # (Auto) (test cod e = BA#) 0.08 x10 3/uL 0.00-0.21 N nRBC Abs (test code = NRBCA) 0 nRBC Pct (test code = NRBCP) 0 % Comprehensive Metabolic [id number] 19:45:00* Test Item Value Reference Range Interpretation Comme nts SODIUM (test code = NA) 142.0 mmol/L 136.0-145.0 N Potassium,K (test code = K) 4.0 mmol/L 3.0-5.1 N Chloride (test code = CL) 108 mmol/L 98-107 H Carbon Dioxide (test code = CO2) 30 mmol/L 20-31 N Anion Gap (test code = GAP) 4 mmol/L 5-15 L Blood Urea Nitrogen (test co de = BUN) 14 mg/dL 9-23 N Creatinine (test code = CREATT) 0.76 mg/dL 0.55-1.02 N Creatinine Clr Calc Pharmacy (test code = CRCLPHA) 145.89 mL/min Estimated GFR ( [place] (test code = EGFRAA) > 60 mL/min/1.73m2 Estimated GFR (Non Afr [place] (test code = EGFRNAA) > 60 mL/min/1.73m2 BUN/Creatinine Ratio (test c ode = BCRATIO) 18 ratio 10-20 N Glucose (test code = GLU) 108 mg/dL 74-106 H Osmolality,Calculated (test code = OSMOC) 295.0 Calcium (test code = CA) 8.5 mg/dL 8.3-10.6 N Bilirubin,Total (test code = BILIT) 0.6 mg/dL 0.2-1.1 N Aspartate Amino Transferase (test code = AST) 25 U/L 0-34 N Alanine Aminotransferase (te st code = ALT) 17 U/L 10-49 N Total Protein (test code = TP) 6.2 g/dL 5.7-8.2 N Albumin Level (test code = ALB) 4.2 g/dL 3.2-4.8 N Globulin (test code = GLOB) 2.0 mg/dL 2.3-3.5 L Albumin/Globulin Ratio (test code = AGRATIO) 2.1 ratio 0.8-2.0 H Alkaline Phosphatase (test c ode = ALP) 61 U/L 46-116 N Thyroid Stimulating [id number] 19:45:00* Test Item Value Reference Range Interpretation Comme nts Thyroid Stimulating Hormone (test code = TSH) 4.27 mcIU/mL 0.55-4.78 N Ethanol [id number] 19:45:00* Test Item Value Reference Range Interpretation Comme nts Ethanol (test code = ETOH) 6 mg/dL Sars-CoV-2/FLU A/B RSV [id number] 19:20:00* Test Item Value Reference Range Interpretation Comme nts Sars-CoV-2/FLU A/B RSV PCR (test code = SARSFLURSVPCR) For use under Emergency Use Authorization (EUA) only. Sars-CoV-2/FLU A/B RSV PCR (test code = SARSFLURSVPCR1.1) ical-devices/emergency-u se-authorizations. Influenza A PCR: (test code = Influenza A PCR:) Negative by Nucleic Acid Amplification Influenza B PCR: (test code = Influenza B PCR:) Negative by Nucleic Acid Amplification RSV PCR Result: (test code = RSV PCR Result:) Negative by Nucleic Acid Amplification SARS-CoV-2 PCR Result: (test code = SARS-CoV-2 PCR Result:) Negative by Nucleic Acid Amplification Thyroxine Free [id number] 08:22:53* Test Item Value Reference Range Interpretation Comme nts T4 Free (test code = T4 Free) 1.060 ng/dL 0.930-1.700 RPR [id number] 19:40:08* Test Item Value Reference Range Interpretation Comme nts RPR Qual (test code = RPR Qual) Non-Reactive Non-Reactive Reactive Control (test code = Reactive Control) Reactive Weak Reactive Control (test code = Weak Reactive Control) Weak Reactive Non-Reactive Control (test c ode = Non-Reactive Control) Non-Reactive Lot # (test code = Lot #) [id number] N Expiration Dt (test code = Expiration Dt) 10.31.20 N Hemoglobin [id number] 12:10:15* Test Item Value Reference Range Interpretation Comme nts Hemoglobin A1c (test code = Hemoglobin A1c) 5.2 % 4.8-5.9 Non Diabetic 4.8-5.9%Diabetic <7.0% Thyroid Stimulating [id number] 09:22:05* Test Item Value Reference Range Interpretation Comme nts TSH (test code = TSH) 6.780 mIU/mL 0.270-4.200 H Lipid [id number] 09:17:31* Test Item Value Reference Range Interpretation Comme nts Cholesterol Total (test code = Cholesterol Total) 112 mg/dL 0-200 RISK OF HEART DISEASEPublished by [place] [employer] Analyte Optimal Borderline Increased RiskCHOL <200 200-239 >240TRIG <150 150-199 >200HDL Male >60 <40HDL Female >60 <50LDL <100 130-159 >160LDL Near optimal is 100-129 Triglycerides (test code = Triglycerides) 124 mg/dL 9-200 HDL (test code = HDL) 42 mg/dL 40-60 LDL (test code = LDL) 45 mg/dL 0-130 The equation being used in this calculation is LDL = (Chol - HDL) - (Trig / 5) VLDL (test code = VLDL) 25 mg/dL 5-40 The equation juan jose ng used in this calculation is VLDL = Trig / 5 Chol/HDL (test code = Chol/HDL) 2.7 ratio 0.0-5.0 LDL/HDL Ratio (test code = LDL/HDL Ratio) 1 N The equati on being used in this calculation is LDL/HDL Ratio=LDL Calc/HDL Chol Urine Drug [id number] 01:18:36* Test Item Value Reference Range Interpretation Comme nts Amphetamine Screen Ur (test code = Amphetamine Screen Ur) Negative Negative Barbiturate Screen Ur (test code = Barbiturate Screen Ur) Negative Negative Benzodiazepines Ur (test code = Benzodiazepines Ur) Negative Negative Cocaine Screen Ur (test code = Cocaine Screen Ur) Negative Negative U Methadone Scr (test code = U Methadone Scr) Negative Negative Opiate Screen Ur (test code = Opiate Screen Ur) Negative Negative U PCP Scrn (test code = U PCP Scrn) Negative Negative Cannabinoid Screen Ur (test code = Cannabinoid Screen Ur) POSITIVE Negative A U TCA (test code = U TCA) Negative Negative The results of a ll drug screen tests are only preliminary. Clinical consideration and professional judgment should be applied to any drug of abuse test result, particularly when preliminary positive results are obtained. Please order a separate confirmatory test if desired. Alcohol [id number] 00:40:25* Test Item Value Reference Range Interpretation Comme nts Ethanol Level (test code = Ethanol Level) <0.00 g/dL 0.00-0.01 Intoxicated 0.08 0 g/dL or more Ethanol Inst (test code = Ethanol Inst) <0 N Comprehensive Metabolic [id number] 20:42:46* Test Item Value Reference Range Interpretation Comme nts Sodium Level (test code = So dium Level) 142.0 mmol/L 135.0-145.0 Potassium Level (test code = Potassium Level) 5.0 mmol/L 3.5-5.1 Chloride Level (test code = Chloride Level) 103 mmol/L 98-105 CO2 (test code = CO2) 29 mmol/L 22-29 Anion Gap (test code = Anion Gap) 10 mmol/L 7-16 BUN (test code = BUN) 11.20 mg/dL 6.00-20.00 Creatinine Level (test code = Creatinine Level) 0.80 mg/dL 0.70-1.20 BUN/Creat Ratio (test code = BUN/Creat Ratio) 14 N Glucose Level (test code = Glucose Level) 91 mg/dL 70-115 Calcium Level (test code = Calcium Level) 9.4 mg/dL 8.3-10.5 Alk Phos (test code = Alk Phos) 72 U/L 40-129 Bilirubin Total (test code = Bilirubin Total) <0.1 mg/dL 0.1-0.9 Albumin Level (test code = Albumin Level) 4.5 g/dL 3.5-5.2 Protein Total (test code = Protein Total) 6.5 g/dL 6.4-8.3 ALT (test code = ALT) 15 U/L 1-41 AST (test code = AST) 15 U/L 1-40 Globulin (test code = Globulin) 2.0 g/dL 2.9-3.1 L A/G Ratio (test code = A/G Ratio) 2.2 ratio N Comprehensive Metabolic [id number] 20:42:46* Test Item Value Reference Range Interpretation Comme nts Sodium Level (test code = Sodium Level) 142.0 mmol/L 135.0-145.0 Potassium Level (test code = Potassium Level) 5.0 mmol/L 3.5-5.1 Chloride Level (test code = Chloride Level) 103 mmol/L 98-105 CO2 (test code = CO2) 29 mmol/L 22-29 Anion Gap (test code = Anion Gap) 10 mmol/L 7-16 BUN (test code = BUN) 11.20 mg/dL 6.00-20.00 Creatinine Level (test code = Creatinine Level) 0.80 mg/dL 0.70-1.20 BUN/Creat Ratio (test code = BUN/Creat Ratio) 14 N Glucose Level (test code = Glucose Level) 91 mg/dL 70-115 Calcium Level (test code = Calcium Level) 9.4 mg/dL 8.3-10.5 Alk Phos (test code = Alk Phos) 72 U/L 40-129 Bilirubin Total (test code = Bilirubin Total) <0.1 mg/dL 0.1-0.9 Albumin Level (test code = Albumin Level) 4.5 g/dL 3.5-5.2 Protein Total (test code = Protein Total) 6.5 g/dL 6.4-8.3 ALT (test code = ALT) 15 U/L 1-41 AST (test code = AST) 15 U/L 1-40 Globulin (test code = Globulin) 2.0 g/dL 2.9-3.1 L A/G Ratio (test code = A/G Ratio) 2.2 ratio N eGFR AA (test code = eGFR AA) >60 mL/min/1.73 m2 N eGFR (estimated Glomerular Filtration Rate) is an estimated value, calculated from the patient's serum creatinine using the MDRD equation. It is NOT the patient's actual GFR. The eGFR provides a more clinically useful measure of kidney disease than serum creatinine alone.This calculation takes sex and race into account, if the information is provided. If the race is not provided, and the patient is -Bhut[place], multiply by 1.212. If sex is not provided, and the patient is female, multiply by 0.742. Results for patients <18 years of age have not been validated by the MDRD study and should be interpreted with caution. eGFR Result Interpretation:eGFR > or = 60 is in the Normal RangeeGFR < 60 may mean kidney diseaseeGFR < 15 may mean kidney failure Ranges recommended by the National Kidney Foundation, http://nkdep.nih.gov Comprehensive Metabolic [id number] 20:42:46* Test Item Value Reference Range Interpretation Comme nts Sodium Level (test code = Sodium Level) 142.0 mmol/L 135.0-145.0 Potassium Level (test code = Potassium Level) 5.0 mmol/L 3.5-5.1 Chloride Level (test code = Chloride Level) 103 mmol/L 98-105 CO2 (test code = CO2) 29 mmol/L 22-29 Anion Gap (test code = Anion Gap) 10 mmol/L 7-16 BUN (test code = BUN) 11.20 mg/dL 6.00-20.00 Creatinine Level (test code = Creatinine Level) 0.80 mg/dL 0.70-1.20 BUN/Creat Ratio (test code = BUN/Creat Ratio) 14 N Glucose Level (test code = Glucose Level) 91 mg/dL 70-115 Calcium Level (test code = Calcium Level) 9.4 mg/dL 8.3-10.5 Alk Phos (test code = Alk Phos) 72 U/L 40-129 Bilirubin Total (test code = Bilirubin Total) <0.1 mg/dL 0.1-0.9 Albumin Level (test code = Albumin Level) 4.5 g/dL 3.5-5.2 Protein Total (test code = Protein Total) 6.5 g/dL 6.4-8.3 ALT (test code = ALT) 15 U/L 1-41 AST (test code = AST) 15 U/L 1-40 Globulin (test code = Globulin) 2.0 g/dL 2.9-3.1 L A/G Ratio (test code = A/G Ratio) 2.2 ratio N eGFR AA (test code = eGFR AA) >60 mL/min/1.73 m2 N eGFR (estimated Glomerular Filtration Rate) is an estimated value, calculated from the patient's serum creatinine using the MDRD equation. It is NOT the patient's actual GFR. The eGFR provides a more clinically useful measure of kidney disease than serum creatinine alone.This calculation takes sex and race into account, if the information is provided. If the race is not provided, and the patient is -Bhut[place], multiply by 1.212. If sex is not provided, and the patient is female, multiply by 0.742. Results for patients <18 years of age have not been validated by the MDRD study and should be interpreted with caution. eGFR Result Interpretation:eGFR > or = 60 is in the Normal RangeeGFR < 60 may mean kidney diseaseeGFR < 15 may mean kidney failure Ranges recommended by the National Kidney Foundation, http://nkdep.nih.gov eGFR Non-AA (test code = eGFR Non-AA) >60.00 mL/min/1.73 m2 N eGFR (estimated Glomerular Filtration Rate) is an estimated value, calculated from the patient's serum creatinine using the MDRD equation. It is NOT the patient's actual GFR. The eGFR provides a more clinically useful measure of kidney disease than serum creatinine alone.This calculation takes sex and race into account, if the information is provided. If the race is not provided, and the patient is -Bhut[place], multiply by 1.212. If sex is not provided, and the patient is female, multiply by 0.742. Results for patients <18 years of age have not been validated by the MDRD study and should be interpreted with caution. eGFR Result Interpretation:eGFR > or = 60 is in the Normal RangeeGFR < 60 may mean kidney diseaseeGFR < 15 may mean kidney failure Ranges recommended by the National Kidney Foundation, http://nkdep.nih.gov Urinalysis with Culture, if [id number] 20:26:39* Test Item Value Reference Range Interpretation Comme nts UA Color (test code = UA Color) YELLO Yellow UA Appear (test code = UA Appear) CLEAR Clear UA pH (test code = UA pH) 7 N UA Spec Grav (test code = UA Spec Grav) 1.014 1.001-1.035 UA Glucose (test code = UA Glucose) NEG Negative UA Bili (test code = UA Bili) NEG Negative UA Ketones (test code = UA Ketones) NEG Negative UA Blood (test code = UA Blood) NEG Negative UA Protein (test code = UA Protein) NEG Negative UA Urobilinogen (test code = UA Urobilinogen) 0.2 mg/dL N UA Nitrite (test code = UA Nitrite) NEG Negative UA Leuk Est (test code = UA Leuk Est) NEG Negative UA Micro Ind? (test code = UA Micro Ind?) Not Indicated Not Indicated Result cre ated by rule GL_SJM_UA_MICRO_IN D Complete Blood Count with [id number] 20:13:10* Test Item Value Reference Range Interpretation Comme nts WBC (test code = WBC) 9.4 x10 4.4-10.5 RBC (test code = RBC) 4.66 x10 4.10-5.70 Hgb (test code = Hgb) 15.2 g/dL 13.4-17.4 Hct (test code = Hct) 43.9 % 38.7-52.0 MCV (test code = MCV) 94.20 fL 80.00-100.00 MCHC (test code = MCHC) 34.60 g/dL 32.00-37.50 RDW CV (test code = RDW CV) 12.3 % 11.5-14.5 MCH (test code = MCH) 32.6 pg 27.0-32.5 H Platelets (test code = Platelets) 283.0 x10 140.0-440.0 MPV (test code = MPV) 10.9 fL N Slide Review (test code = Slide Review) Auto Auto Result crea carrie by GL_SJM_SLIDE_REV_AUTO nRBC (test code = nRBC) 0 N NRBC Abs (test code = NRBC Abs) 0.00 x10 N IPF (test code = IPF) 0 % N Automated [id number] 20:13:10* Test Item Value Reference Range Interpretation Comme nts Neutro Auto (test code = Jennifer tro Auto) 62.8 % 36.0-70.0 Lymph Auto (test code = Lymph Auto) 22.9 % 12.0-44.0 [place] Auto (test code = [place] Auto) 11.0 % 0.0-11.0 Eos, Auto (test code = Eos, Auto) 2.3 % 0.0-7.0 Basophil Auto (test code = B asophil Auto) 0.6 % 0.0-2.0 Neutro Absolute (test code = Neutro Absolute) 5.9 x10 1.6-7.4 Lymph Absolute (test code = Lymph Absolute) 2.15 x10 .50-4.60 [place] Absolute (test code = M isaura Absolute) 1.03 x10 .00-1.20 Eos Absolute (test code = Eo s Absolute) 0.22 x10 0.00-0.74 Baso Absolute (test code = B aso Absolute) 0.06 x10 0.00-0.21 IG [id number] 20:13:10* Test Item Value Reference Range Interpretation Comme nts IG (test code = IG) 0.4 % 0.0-5.0 IG Abs (test code = IG Abs) 0 x10 N
[2023-08-24] MEDS ORDERED: NA CHLORIDE 0.9% 1,000 ML ONE ×2 (17:37→18:42)
[2023-08-24] MEDS ORDERED: MAGNESIUM SULFATE 1 gm IVPB 1 GM/100 ML BAG IV ONE (17:38)
[2023-08-24] MEDS ORDERED: ONDANSETRON 4 MG/2 ML VIAL ONE (17:42)
[2023-08-24 18:08] LABS: Absolute Basophils 0.1 K/uL (0-0.5); Absolute Eosinophils 0.1 K/uL (0-0.5); Absolute Lymphocytes (CBC) 1.4 K/uL (0.7-4.9); Absolute Monocytes 1.2 K/uL (0.1-1.3); Absolute Neutrophil 10.9 K/uL (1.8-8.0); Basophils % 0.4 % (0-1.3); Eosinophils % 0.6 % (0-4.4); Hematocrit 44.8 % (39.6-49.0); Hemoglobin 15.2 g/dL (13.6-17.9); Lymphocytes % 10.5 % (15.3-44.8); MCH 31.8 pg (27.0-35.0); MCHC 33.9 g/dL (32.0-36.0); MCV 93.8 fL (80-100); Monocytes % 8.9 % (3.3-12.3); Neutrophils % 79.6 % (41.7-73.7); Platelets 283 thou/uL (152-406); RBC Red Blood Cell Count 4.77 M/uL (4.33-5.43); Red Cell Distribution Width 13.4 % (12.1-15.2)
[2023-08-24 18:22] LABS: Anion Gap 7.7 mEq/L (5.0-15.0); Potassium 3.7 mEq/L (3.5-5.1)
--- NOTE | 2023-08-24 18:57 | RAD REPORT ---
EXAM DESCRIPTION: CTAbdomen Pelvis Wo Contrast - 08/24/2023 6:48 pm CLINICAL HISTORY: NAUSEA / VOMITING COMPARISON: No comparisons TECHNIQUE: CT of the abdomen and pelvis was performed. All CT scans are performed using dose optimization technique as appropriate and may include automated exposure control or mA/KV adjustment according to patient size. FINDINGS: Lower chest: No acute abnormality. Liver: No acute abnormality or suspicious lesions. Biliary: No biliary ductal dilatation. Stomach: No significant focal abnormality. Duodenum: No significant focal abnormality. Pancreas: No significant abnormality. Spleen: No significant abnormality. Adrenal: No suspicious lesions. Kidney/ureter: No hydronephrosis. No renal calculi. No ureteral calculi. Retroperitoneum: No retroperitoneal adenopathy. Vascular: No aneurysm. Bowel: No significant focal abnormality. No appendicitis . Peritoneum: No ascites or free air. Bladder: Grossly unremarkable. Reproductive: No adnexal masses. Bones: No acute fracture. Other: n/a IMPRESSION: No acute intra-abdominal or pelvic finding. No appendicitis.
[2023-08-24] MEDS ORDERED: D50W 25 GM/50 ML SYRINGE IV ONE (19:05)
--- NOTE | 2023-08-24 19:27 | ER ---
Nurse's Notes [facility] Name: Darinel Jaeger III Age: 33 yrs Sex: Male : 1990 Arrival Date: 08/24/2023 Time: 17:28 Bed 14 Private MD: Diagnosis: Acute kidney failure, unspecified;Heat exhaustion, unspecified;Heat cramp Presentation: 08/23 17:30 Chief complaint: EMS states: Heat exhaustion. Pt worked outside and decided to go walk [facility] afterwork. Heart rate in 140's upon EMS arrival. 17:30 Coronavirus screen: Vaccine status: Patient reports receiving the 1st dose of the Covid nj1 vaccine. Ebola Screen: Patient denies travel to an Ebola-affected area in the 21 days before illness onset. Initial Sepsis Screen: Does the patient meet any 2 criteria?. Risk Assessment: Do you want to hurt yourself or someone else? Patient reports no desire to harm self or others. Onset of symptoms was August 24, 2023. 17:30 Method Of Arrival: EMS: [facility] 17:30 Acuity: KAVON 3 [facility] 17:30 Care prior to arrival: Medication(s) given: Normal saline infusion, 1000 mL, Fentanyl nj 100mcg IVP. 17:50 Initial Sepsis Screen: Does the patient meet any 2 criteria? No. Patient's initial [facility] sepsis screen is negative. Does the patient have a suspected source of infection? No. Patient's initial sepsis screen is negative. Historical: - Allergies: 18:11 No Known Allergies; nj1 - PMHx: 18:11 Anxiety; Bipolar disorder; Depression; Methamphetamine abuse; Schizophrenia; nj1 - Immunization history:: Client reports receiving the 1st dose of the Covid vaccine. - Infectious Disease History:: Denies. - Family history:: not pertinent. - Social history:: Smoking status: Patient reports the use of cigarette tobacco products, smokes one pack cigarettes per day. Reported history of juuling and/or vaping. - Hospitalizations: : No recent hospitalization is reported. Screenin:12 [facility] ED Fall Risk Assessment (Adult) History of falling in the last 3 months, nj1 including since admission No falls in past 3 months (0 pts) Confusion or Disorientation No (0 pts) Intoxicated or Sedated No (0 pts) Impaired Gait No (0 pts) Mobility Assist Device Used No (0 pt) Altered Elimination No (0 pt) Score/Fall Risk Level 0 - 2 = Low Risk Oriented to surroundings, Maintained a safe environment, Hourly rounding (assess needs \T\ fall precautionary measures) done. Abuse screen: Denies threats or abuse. Denies injuries from another. Nutritional screening: No deficits noted. Tuberculosis screening: No symptoms or risk factors identified. Assessment: 17:40 General: Appears distressed, uncomfortable. nj1 17:40 Pain: Denies pain. Neuro: Level of Consciousness is awake, alert, obeys commands, nj1 Oriented to person, place, situation. Neuro: Reports weakness. Cardiovascular: Patient's skin is warm and dry. Respiratory: Airway is patent Respiratory effort is even, unlabored. GI: Pt is actively vomiting. 17:40 General: Behavior is restless. nj1 18:12 Reassessment: Patient appears in no apparent distress at this time. Patient and/or nj1 family updated on plan of care and expected duration. Pain level reassessed. Patient is alert, oriented x 3, equal unlabored respirations, skin warm/dry/pink. GI: Patient currently denies nausea. 19:20 Reassessment: Patient appears in no apparent distress at this time. Patient and/or kj2 family updated on plan of care and expected duration. Pain level reassessed. Patient is alert, oriented x 3, equal unlabored respirations, skin warm/dry/pink. Patient states feeling better. Patient states symptoms have improved. 22:00 General: Appears in no apparent distress. comfortable, Behavior is calm, cooperative, jj7 appropriate for age. Vital Signs: 17:50 BP 119 / 77; Pulse 84; Resp 16; Temp 97.6(O); Pulse Ox 99% ; Weight 72.57 kg; Height 5 nj1 ft. 10 in. ; 19:21 BP 128 / 80; Pulse 80; Resp 18; Pulse Ox 100% on R/A; kj2 22:00 BP 120 / 79; Pulse 80; Resp 21; Pulse Ox 100% ; jj7 23:00 BP 135 / 73; Pulse 76; Resp 14; Pulse Ox 99% ; jj7 08/24 00:00 BP 126 / 70; Pulse 69; Resp 14; Pulse Ox 100% ; jj7 08/23 17:50 Body Mass Index 22.96 (72.57 kg, 177.8 cm) ks1 ED Course: 08/23 17:29 Patient arrived in ED. rn 17:29 Kevin Burnette MD is Attending Physician. rn 17:33 Angela Matos RN is Primary Nurse. nj1 17:40 Maintain EMS IV. Good blood return noted. Site clean \T\ dry. Gauge \T\ site: 18 L AC. nj 1 17:52 Radiology exam delayed due to lab results not completed at this time. (BUN/Creatinine) nj IV insertion attempt and/or patient not having appropriate IV at this time. 18:06 Triage completed. nj1 18:13 Arm band placed on. nj1 18:13 Patient has correct armband on for positive identification. Bed in low position. Call [facility] light in reach. Side rails up X 1. Provided Education on: call light, fall precautions. 18:50 Abdomen In Process Unspecified. EDMS 19:26 Rene Cevallos MD is Hospitalizing Provider. rn 22:00 No provider procedures requiring assistance completed. jj7 22:15 Warm blanket given. SANDWICH PROVIDED. jj7 08/24 07:22 Patient admitted, IV remains in place. mb9 Administered Medications: 08/23 17:45 Drug: Ondansetron IVP 4 mg IVP once; over 2 minutes Route: IVP; Site: left antecubital; nj 18:32 Follow up: Response: No adverse reaction nj1 18:00 Drug: NS 0.9% IV 1000 ml IV at 1000 ml once Route: IV; Rate: 1000 ml; Site: left nj1 antecubital; 18:02 Drug: Magnesium Sulfate IVPB 1 grams IVPB once over 1 hrs Route: IVPB; Infused Over: 1 nj1 hrs; Site: left antecubital; 19:10 Drug: D50W IVP 50 ml IVP once; (1 amp) Route: IVP; Site: left antecubital; 20:15 Drug: NS 0.9% IV 1000 ml IV at 1000 ml once Route: IV; Rate: 1000 ml; Site: left nj1 antecubital; Medication: 22:00 VIS not applicable for this client. jj7 Outcome: 19:26 Decision to Hospitalize by Provider. rn 08/24 00:30 Admitted to ER Hold. Please see [facility] for further documentation. jj7 08:44 Condition: stable mb9 08:44 Discharge instructions given to patient, Instructed on discharge instructions, follow up and referral plans. Demonstrated understanding of instructions, follow-up care, 08:44 Patient left the ED. mb9 Signatures: Dispatcher [employer] EDMS Kevin Burnette MD MD rn Brandi Sheridan RN RN Jose Daniel Hopper Juwairiyah, RN RN jj7 Denise Mazariegos RN RN mb9 Angela Matos RN RN nj1 Tyesha Hills RN RN kj2 Corrections: (The following items were deleted from the chart) 08/23 18:12 18:11 Allergies: Unable to obtain; nj1 nj1 18:18 18:14 General: Behavior is nj1 nj1
--- NOTE | 2023-08-24 19:27 | EDPHYS ---
Physician Documentation [facility] Name: Darinel Jaeger III Age: 33 yrs Sex: Male : 1990 Arrival Date: 08/24/2023 Time: 17:28 Bed 14 Private MD: ED Physician Kevin Burnette HPI: 08/23 17:36 This 33 yrs old Male presents to ER via Unassigned with complaints of weakness, rn possible heat exhaustion. 17:36 Patient reports woke up feeling fine this morning, no recent illness or symptoms, went rn to work outdoors and feels like got overheated. Reports generalized weakness and dizziness with heart racing and heavy sweating, after work had to walk 2 miles to her destination and got worse. 911 was called. Given fluids and feels much better now and air conditioned location. Denies syncope. No chest pain or shortness of breath. No abdominal pain. Reports muscle cramping diffusely.. Onset: The symptoms/episode began/occurred today. Severity of symptoms: At their worst the symptoms were moderate in the emergency department the symptoms have improved. The patient has not experienced similar symptoms in the past. The patient has not recently seen a physician. Historical: - Allergies: 18:11 No Known Allergies; nj1 - PMHx: 18:11 Anxiety; Bipolar disorder; Depression; Methamphetamine abuse; Schizophrenia; nj1 - Immunization history:: Client reports receiving the 1st dose of the Covid vaccine. - Infectious Disease History:: Denies. - Family history:: not pertinent. - Social history:: Smoking status: Patient reports the use of cigarette tobacco products, smokes one pack cigarettes per day. Reported history of juuling and/or vaping. - Hospitalizations: : No recent hospitalization is reported. ROS: 17:36 Constitutional: Negative for fever, chills, and weight loss, Eyes: Negative for injury, rn pain, redness, and discharge, Neck: Negative for injury, pain, and swelling, Cardiovascular: Negative for chest pain, palpitations, and edema, Respiratory: Negative for shortness of breath, cough, wheezing, and pleuritic chest pain, Abdomen/GI: Negative for abdominal pain, nausea, vomiting, diarrhea, and constipation, MS/Extremity: Negative for injury and deformity, Skin: Negative for injury, rash, and discoloration, Neuro: Positive for generalized weakness Exam: 17:36 Constitutional: This is a well developed, well nourished patient who is awake, alert, rn and in no acute distress. Ambulatory to room from EMS stretcher without assistance or difficulty Head/Face: Normocephalic, atraumatic. ENT: Dry mucous membranes Neck: Supple, no meningismus Cardiovascular: Tachycardic, regular. Respiratory: No increased work of breathing, no retractions or nasal flaring. Abdomen/GI: Soft, nontender, no masses, no guarding or rebound MS/ Extremity: Pulses equal, no cyanosis. Neuro: Awake and alert, GCS 15, oriented to person, place, time, and situation. Cranial nerves II-XII grossly intact. Motor strength 5/5 in all extremities. Sensory grossly intact. Cerebellar exam normal. Normal gait. 19:02 ECG was reviewed by the Attending Physician. rn Vital Signs: 17:50 BP 119 / 77; Pulse 84; Resp 16; Temp 97.6(O); Pulse Ox 99% ; Weight 72.57 kg; Height 5 nj1 ft. 10 in. ; 19:21 BP 128 / 80; Pulse 80; Resp 18; Pulse Ox 100% on R/A; kj2 22:00 BP 120 / 79; Pulse 80; Resp 21; Pulse Ox 100% ; j7 23:00 BP 135 / 73; Pulse 76; Resp 14; Pulse Ox 99% ; j7 08/24 00:00 BP 126 / 70; Pulse 69; Resp 14; Pulse Ox 100% ; j7 08/23 17:50 Body Mass Index 22.96 (72.57 kg, 177.8 cm) nj1 MDM: 08/23 17:29 Patient medically screened. rn 19:23 Differential Diagnosis Heat exhaustion, dehydration, rhabdo, kidney injury, drug use. rn Data reviewed: vital signs, nurses notes, lab test result(s), and as a result, I will discharge patient. Counseling: I had a detailed discussion with the patient and/or guardian regarding the historical points, exam findings, and any diagnostic results supporting the discharge/admit diagnosis, lab results, radiology results, the need for further work-up and treatment in the hospital. Response to treatment: the patient's symptoms have mildly improved after treatment, and as a result, I will admit patient. ED course: Creatinine today is 2.5, CK normal, last checked creatinine was 0.93 a couple of years ago. Given 2 L of fluid so far with some improvement, still feels weak and nauseous, threw up once here. Borderline hypoglycemia, given D50 and p.o. challenge. Will admit to hospitalist service for acute kidney injury likely secondary to heat related illness. 08/23 17:30 Order name: CBC with Diff; Complete Time: 18:31 rn 08/23 17:30 Order name: Basic Metabolic Panel; Complete Time: 18:31 rn 08/23 17:43 Order name: Urine Drug Screen rn 08/23 18:31 Order name: CK; Complete Time: 19:09 rn 08/23 19:45 Order name: Urinalysis w/ reflexes EDMS 08/23 19:45 Order name: CBC with Automated Diff EDPA 08/23 19:45 Order name: CBC with Automated Diff EDPA 08/23 19:45 Order name: Comprehensive Metabolic Panel EDPA 08/23 19:45 Order name: Comprehensive Metabolic Panel EDMS 08/23 19:45 Order name: Magnesium EDMS 08/23 19:45 Order name: Magnesium EDMS 08/23 19:45 Order name: Phosphorus EDMS 08/23 19:45 Order name: Phosphorus EDMS 08/23 18:35 Order name: Abdomen ; Complete Time: 18:59 EDPA 08/23 17:30 Order name: EKG; Complete Time: 17:30 08/23 17:30 Order name: IV Start; Complete Time: 17:33 rn 08/23 17:30 Order name: EKG - Nurse/Tech; Complete Time: 18:10 08/23 18:59 Order name: PO challenge; Complete Time: 19:16 rn EC:02 Rate is 77 beats/min. Rhythm is regular. QRS [place] is Normal. MI interval is normal. QRS rn interval is normal. QT interval is normal. No Q waves. T waves are Normal. No ST changes noted. Clinical impression: NSR w/ Non-specific ST/T Changes. Interpreted by me. Reviewed by me. Administered Medications: 17:45 Drug: Ondansetron IVP 4 mg IVP once; over 2 minutes Route: IVP; Site: left antecubital; nj1 18:32 Follow up: Response: No adverse reaction nj1 18:00 Drug: NS 0.9% IV 1000 ml IV at 1000 ml once Route: IV; Rate: 1000 ml; Site: left nj1 antecubital; 18:02 Drug: Magnesium Sulfate IVPB 1 grams IVPB once over 1 hrs Route: IVPB; Infused Over: 1 nj1 hrs; Site: left antecubital; 19:10 Drug: D50W IVP 50 ml IVP once; (1 amp) Route: IVP; Site: left antecubital; ss 20:15 Drug: NS 0.9% IV 1000 ml IV at 1000 ml once Route: IV; Rate: 1000 ml; Site: left nj1 antecubital; Disposition Summary: 08/24/23 19:26 Hospitalization Ordered Notes: Hospitalization Status: Observation rn Provider: Rene Cevallos rn Condition: Stable rn Problem: new rn Symptoms: have improved rn Bed/Room Type: Standard rn Location: [facility] ER HOLD(08/24/23 23:50) Room Assignment: ERHOLD-(08/24/23 23:50) Diagnosis - Acute kidney failure, unspecified rn - Heat exhaustion, unspecified rn - Heat cramp rn Forms: - Medication Reconciliation Form rn - SBAR form rn - Leadership Thank You Letter rn Signatures: Dispatcher [employer] EDPA Kevin Burnette MD MD rn Blanchard, Shelby, RN RN ss Angela Matos RN RN [facility] Corrections: (The following items were deleted from the chart) 18:12 18:11 Allergies: Unable to obtain; [place] [id number] 18:35 17:43 Abdomen Pelvis W Con+CT.RAD.BRZ ordered. EDPA EDPA 23:50 19:26 Telemetry/MedSurg (observation) rn junior 23:50 19:26 rn ss
[2023-08-24] MEDS ORDERED: ACETAMINOPHEN 325 MG TABLET PO PRN (19:41)
[2023-08-24] MEDS ORDERED: ONDANSETRON 4 MG/2 ML VIAL IV PRN (19:41)
--- NOTE | 2023-08-24 19:41 | P.HP ---
Certification for Inpatient Patient admitted to: Inpatient With expected LOS: >2 Midnights Practitioner: I am a practitioner with admitting privileges, knowledge of patient current condition, hospital course, and medical plan of care. Services: Services provided to patient in accordance with Admission requirements found in Title 42 Section 412.3 of the Code of Federal Regulations Patient History Date of Service: 08/24/23 Reason for admission: SHIRA History of Present Illness: 33 yrs old Male with past medical history of anxiety, bipolar disorder, depression, substance abuse, schizophrenia who was brought to ER with generalized weakness and possible exhaustion. He was working outside and feels like getting overheated. Complains of generalized weakness and dizziness with palpitation and heavy sweating. Patient denies any chest pain. No fever or chills. Also complains of muscular cramping. Denies any abdominal pain. No nausea vomiting or diarrhea. Patient was assessed in the ER and is admitted for further management of acute kidney injury Allergies No Known Drug Allergies Allergy (Unverified 06/10/14 03:09) Unknown No Known Allergies Allergy (Uncoded 08/12/15 12:23) Unknown - Past Medical/Surgical History Past Medical History: Reviewed- Non-Contributory -: Schizophrenia -: Depression -: Anxiety Disorder -: Bipolar Disorder Past Surgical History: Reviewed- Non-Contributory - Family History Family History: Reviewed- Non-Contributory - Social History Smoking Status: Current some day smoker Alcohol use: Yes CD- Drugs: Yes Caffeine use: Yes Review of Systems 10-point ROS is otherwise unremarkable Physical Examination - Vital Signs Temperature: 98.2 F Blood Pressure: 134/78 Pulse: 78 Respirations: 18 Pulse Ox (%): 94 - Physical Exam General: Alert, In no apparent distress, Oriented x3 HEENT: Atraumatic, Normocephalic Neck: Supple, 2+ carotid pulse no bruit Respiratory: Clear to auscultation bilaterally, Normal air movement Cardiovascular: No edema, Regular rate/rhythm, Normal S1 S2 Capillary refill: <2 Seconds Gastrointestinal: Soft and benign, Non-distended, W/out hepatosplenomegaly Musculoskeletal: No clubbing, No swelling Integumentary: No rashes, No breakdown Neurological: Normal strength at 5/5 x4 extr, Cranial nerves 3-12 intact, Normal reflexes 2+, Normal affect Lymphatics: No axilla or inguinal lymphadenopathy - Studies Laboratory Data (last 24 hrs) 08/24/23 08/24/23 17:50 17:50 WBC 13.70 H Hgb 15.2 Hct 44.8 Plt Count 283 Sodium 138 Potassium 3.7 BUN 22 H Creatinine 2.48 H Glucose 61 L Assessment and Plan - Problems (Diagnosis) (1) SHIRA (acute kidney injury) Current Visit: Yes Status: Acute Plan: Acute kidney injury Possible rhabdomyolysis IV hydration Monitor closely on telemetry Pain control Flexeril for spasm History of anxiety, schizophrenia Continue home medications and titrate as needed Dehydration Continue IV fluids Monitor volume status GI/DVT prophylaxis Advanced directive full code Discharge Plan: Home Plan to discharge in: 48 Hours - Advance Directives Does patient have a Living Will: No Does patient have a Durable POA for Healthcare: No - Code Status/Comfort Care Code Status: Full Code Time Spent Managing Pts Care (In Minutes): 48
[2023-08-24 22:42] LABS: Barbiturates NEGATIVE (NEGATIVE); Benzodiazepines NEGATIVE (NEGATIVE); Cocaine NEGATIVE (NEGATIVE); METHAMPHETAM POSITIVE (NEGATIVE); Methadone NEGATIVE (NEGATIVE); Opiates NEGATIVE (NEGATIVE); Phencyclidine NEGATIVE (NEGATIVE); THC Cannibis POSITIVE (NEGATIVE)
[2023-08-25] MEDS ORDERED: NA CHLORIDE 0.9% 1,000 ML ONE (01:12)
[2023-08-25] MEDS: NA CHLORIDE 0.9% 1,000 ML IV SCH (01:17)
[2023-08-25 02:14] VITALS: BMI 22.9
[2023-08-25 04:54] LABS: Absolute Basophils 0.1 K/uL (0-0.5); Absolute Eosinophils 0.2 K/uL (0-0.5); Absolute Monocytes 0.9 K/uL (0.1-1.3); Absolute Neutrophil 5.1 K/uL (1.8-8.0); Basophils % 1.2 % (0-1.3); Eosinophils % 2.7 % (0-4.4); Hematocrit 38.9 % (39.6-49.0); Hemoglobin 13.5 g/dL (13.6-17.9); Lymphocytes % 24.3 % (15.3-44.8); MCH 32.7 pg (27.0-35.0); MCHC 34.7 g/dL (32.0-36.0); MCV 94.2 fL (80-100); MPV 9.9 fL (7.6-11.3); Monocytes % 10.9 % (3.3-12.3); Neutrophils % 60.9 % (41.7-73.7); Platelets 231 thou/uL (152-406); RBC Red Blood Cell Count 4.13 M/uL (4.33-5.43); Red Cell Distribution Width 13.7 % (12.1-15.2)
[2023-08-25 05:10] LABS: ALT/SGPT 16 U/L (16-61); Albumin 3.5 g/dL (3.4-5.0); Albumin/Globulin Ratio 1.3 (1.1-1.8); Alkaline Phosphatase 64 U/L (45-117); Anion Gap 3.9 mEq/L (5.0-15.0); BUN Blood Urea Nitrogen 18 mg/dL (7-18); Bicarbonate 29 mEq/L (21-32); Bilirubin Total 0.6 mg/dL (0.2-1.0); Globulin 2.6 g/dL (2.3-3.5); Glomerular Filtration Rate 92 ml/min (=/>90); Glucose Level 113 mg/dL (74-106); Magnesium 2.3 mg/dL (1.6-2.4); Phosphorus 3.8 mg/dL (2.5-4.9); Potassium 3.9 mEq/L (3.5-5.1); Protein, Total 6.1 g/dL (6.4-8.2); Sodium Level 138 mEq/L (136-145)
[2023-08-25 05:14] LABS: AST/SGOT < 10 U/L (15-37)
--- NOTE | 2023-08-25 08:02 | P.DS ---
Admission Date: 08/24/23 Discharge Date: 08/25/23 Disposition: ROUTINE DISCHARGE Discharge Condition: FAIR Reason for Admission: SHIRA - Problems (1) Dehydration Status: Acute (2) SHIRA (acute kidney injury) Status: Acute Brief History of Present Illness: 33 yrs old Male with past medical history of anxiety, bipolar disorder, depression, substance abuse, schizophrenia was brought to ER with generalized weakness. Patient was working outside and felt like getting overheated. He reported generalized weakness and dizziness with palpitation, heavy sweating and muscle cramping. Patient was assessed in the ER and noted to have acute kidney injury. He was admitted for further management. Hospital Course: Patient was hospitalized and given IV hydration. He had mild leukocytosis which resolved with the IV fluid. SHIRA also resolved. Patient's symptoms improved, the generalized weakness resolved and currently has no complaints. His vitals are stable, he has been afebrile. Patient is tolerating diet and deemed stable for discharge. Vital Signs/Physical Exam: Temp Pulse Resp BP Pulse Ox 98.2 F 53 13 107/43 L 98 08/24/23 21:42 08/25/23 04:00 08/25/23 04:00 08/25/23 04:00 08/25/23 04:00 General: Alert, In no apparent distress, Oriented x3 HEENT: Mucous membr. moist/pink Neck: Supple, JVD not distended Respiratory: Clear to auscultation bilaterally, Normal air movement Cardiovascular: No edema, Regular rate/rhythm, Normal S1 S2 Gastrointestinal: Normal bowel sounds, Soft and benign, Non-distended, No tenderness Musculoskeletal: No swelling, No tenderness Integumentary: No rashes, No cyanosis Neurological: Normal speech, Normal strength at 5/5 x4 extr Laboratory Data at Discharge: WBC 8.40 thou/uL (4.3-10.9) 08/25/23 04:45 Hgb 13.5 g/dL (13.6-17.9) L D 08/25/23 04:45 Hct 38.9 % (39.6-49.0) L 08/25/23 04:45 Plt Count 231 thou/uL (152-406) 08/25/23 04:45 Sodium 138 mEq/L (136-145) 08/25/23 04:45 Potassium 3.9 mEq/L (3.5-5.1) 08/25/23 04:45 BUN 18 mg/dL (7-18) 08/25/23 04:45 Creatinine 1.08 mg/dL (0.70-1.30) 08/25/23 04:45 Glucose 113 mg/dL (74-106) H 08/25/23 04:45 Phosphorus 3.8 mg/dL (2.5-4.9) 08/25/23 04:45 Magnesium 2.3 mg/dL (1.6-2.4) 08/25/23 04:45 Total Bilirubin 0.6 mg/dL (0.2-1.0) 08/25/23 04:45 AST < 10 U/L (15-37) L 08/25/23 04:45 ALT 16 U/L (16-61) 08/25/23 04:45 Alkaline Phosphatase 64 U/L (45-117) 08/25/23 04:45 Diet: Regular Activity: Ad luis miguel Followup: NONE,NONE [Primary Care Provider] - 1-2 Weeks Time spent managing pt's care (in minutes): 26
[2023-08-25 08:38] VITALS: BP 120/69; TEMP 98
[2023-08-25 08:57] VITALS: O2SAT 100
--- NOTE | 2023-08-25 14:07 | EKG ---
Test Date: 2023-08-24 Test Time: 18:08:09 Marketing Recruiter: SULEMAN MEASUREMENT RESULTS: Intervals: Rate: 77 PA: 136 QRSD: 98 QT: 346 QTc: 391 [facility]: P: 57 PA: 136 QRS: 59 T: 22 INTERPRETIVE STATEMENTS: Normal sinus rhythm Early repolarization Normal ECG Compared to ECG 12/08/2021 04:35:51 Early repolarization now present Electronically Signed On 08-25-23 14:06:29 CDT by Clif Olivera
== END 2023-08-25 08:43 | disposition home or self-care (01) | DRG 684 ==
LOC: ER 17:28 → ERHOLD 19:41
PROVIDERS: ADMIT Family Medicine; ATTEND Internal Medicine
DX: N17.9 Acute kidney failure, unspecified (principal); F41.9 Anxiety disorder, unspecified; F20.9 Schizophrenia, unspecified; E86.0 Dehydration; D72.829 Elevated white blood cell count, unspecified; T67.2XXA Heat cramp, initial encounter; T67.5XXA Heat exhaustion, unspecified, initial encounter; F17.210 Nicotine dependence, cigarettes, uncomplicated; Z28.311 Partially vaccinated for COVID-19
CPT/HCPCS: 36415; 74176; 80048; 80053; 80307; 82550; 83735; 84100; 85025; 93005; 96374; 96375; 99285; J2405; J3475; J7030